=== PATIENT | female | born 1950 | race Caucasian/White ===

== ENCOUNTER 2016-07-19 05:06 | Emergency (ER) | payer MEDICARE, MEDICAID ==
[2011-01-21 08:43] VITALS: BMI 36.6
== END 2016-07-19 08:02 | disposition home or self-care (01) ==
LOC: D.ER 05:06
DX: S16.1XXA Strain of muscle, fascia and tendon at neck level, initial encounter (principal); V43.92XA Unspecified car occupant injured in collision with other type car in traffic accident, initial encounter; Y93.89 Activity, other specified; Y92.410 Unspecified street and highway as the place of occurrence of the external cause; E11.9 Type 2 diabetes mellitus without complications; Z79.4 Long term (current) use of insulin; M79.7 Fibromyalgia; K21.9 Gastro-esophageal reflux disease without esophagitis; I10 Essential (primary) hypertension

== ENCOUNTER 2016-12-31 12:53 | Emergency (ER) | payer MEDICARE, MEDICAID ==
[2011-01-21 08:43] VITALS: BMI 36.6
== END 2016-12-31 18:10 | disposition home or self-care (01) ==
LOC: D.ER 12:53
DX: S92.902A Unspecified fracture of left foot, initial encounter for closed fracture (principal); X58.XXXA Exposure to other specified factors, initial encounter; Y93.89 Activity, other specified; Y92.89 Other specified places as the place of occurrence of the external cause; S99.922A Unspecified injury of left foot, initial encounter; E11.9 Type 2 diabetes mellitus without complications; Z79.4 Long term (current) use of insulin; K21.9 Gastro-esophageal reflux disease without esophagitis; I10 Essential (primary) hypertension

== ENCOUNTER 2017-03-07 09:12 | Emergency (ER) | payer MEDICARE, MEDICAID ==
[2011-01-21 08:43] VITALS: BMI 36.6
[2017-03-07 09:58] LABS: UDS - AMPHET NEGATIVE QUAL (NEGATIVE); UDS - BARB NEGATIVE QUAL (NEGATIVE); UDS - BENZO NEGATIVE QUAL (NEGATIVE); UDS - COCAINE NEGATIVE QUAL (NEGATIVE); UDS - METH NEGATIVE QUAL (NEGATIVE); UDS - OPIATE NEGATIVE QUAL (NEGATIVE); UDS - PCP NEGATIVE QUAL (NEGATIVE); UDS - THC NEGATIVE QUAL (NEGATIVE)
[2017-03-07 10:17] LABS: APPEARANCE CLEAR (CLEAR); BACTERIA MODERATE /hpf (NONE SEEN); BILIRUBIN NEGATIVE (NEGATIVE); COLOR YELLOW (YELLOW); EPITHELIAL CELLS 0-5 /hpf (0-5); GLUCOSE NEGATIVE (NEGATIVE); HYALINE CAST 0-5 /lpf (NONE SEEN); KETONE NEGATIVE (NEGATIVE); LEUKOCYTE ESTERASE TRACE (NEGATIVE); NITRITE NEGATIVE (NEGATIVE); PROTEIN TRACE mg/dL (NEGATIVE); SPECIFIC GRAVITY 1.015 (1.005-1.020); UROBILINOGEN NORMAL (NORMAL); WHITE CELLS - URINE 0-5 /hpf (0-5)
[2017-03-07 10:18] LABS: MUCUS <1+ /lpf (NONE SEEN)
[2017-03-07 10:26] LABS: BASOPHILS 0.2 % (0-2); EOSINOPHILS 1.8 % (0-7); HEMATOCRIT 38.8 % (36.0-48.0); HEMOGLOBIN 13.1 g/dL (12-16); IMMATURE GRANULOCYTES 0.7 % (0-5); LYMPHOCYTES 23.1 % (15-50); MCHC 33.8 g/dL (31.0-37.0); MCV 88.8 fL (80.0-100.0); MEAN PLATELET VOLUME 9.6 fL (7.4-10.4); MONOCYTES 6.7 % (2-11); NEUTROPHILS 67.5 % (40-80); RBC 4.37 10x6/uL (4.00-5.40); WBC 16.9 10x3/uL (4.8-10.8)
[2017-03-07 10:27] LABS: PLATELET COUNT 248 10x3/uL (130-400)
[2017-03-07 10:44] LABS: ALBUMIN 3.7 g/dL (3.4-5.0); BILIRUBIN - TOTAL 0.49 mg/dL (0.2-1.3); CALCIUM 9.2 mg/dL (8.5-10.1); CREATININE - SERUM 1.3 mg/dL (0.6-1.3); POTASSIUM - SERUM 3.4 mmol/L (3.5-5.1); PROTEIN - SERUM 7.8 g/dL (6.4-8.2)
[2017-03-07 10:49] LABS: ANION GAP 15.4 mmol/L (8-16)
== END 2017-03-07 15:02 | disposition short-term general hospital (02) ==
LOC: D.ER 09:12
PROVIDERS: Emergency Medicine
DX: F33.9 Major depressive disorder, recurrent, unspecified (principal); Z86.59 Personal history of other mental and behavioral disorders; F41.9 Anxiety disorder, unspecified; R45.851 Suicidal ideations; K21.9 Gastro-esophageal reflux disease without esophagitis; I10 Essential (primary) hypertension; E11.9 Type 2 diabetes mellitus without complications; Z79.4 Long term (current) use of insulin

== ENCOUNTER 2017-04-06 12:06 | Outpatient (CLI) | payer MEDICARE, MEDICAID ==
--- NOTE | ~2017-04-06 | HEMODYNAMI ---
PATIENT:RABIA MORENO MEDICAL RECORD: [id number] : 54 [id number] ADMISSION DATE: 04/06/17 Generatedon:04/07/201710:42 Patient name: RABIA MORENO Patient #: [id number] SSN: D OB: 1950 Date of study: 04/07/2017 Page: Of Hemodynamic Procedure Report Patient Data Patient Demographics Procedure consent was obtained First Name: RABIA Gender: Female Last Name: JOSH : 1950 Middle Initial: A Age: 66 year(s) Patient #: [id number] Race: Unknown Additional ID: [id number] Contact details Address: [address] [place] [address] [address] State: [place] City: [facility] Zip code: [address] Admission Admission Data Admission Date: 04/06/2017 Admission Time: 14:17 Room #: D.2124 Height (in.): 61.81 Height (cm.): 157 Lab Results Lab Result Date: 04/07/2017 Lab Result Time: 0:00 Biochemistry Name Units Result Min Max BUN mg/dl 28 --(----)-* 7 18 Creatinine mg/dl 1.3 --(---*)-- 0.6 1.3 CBC Name Units Result Min Max Hemoglobin g/dl 12.9 -*(----)-- 13.5 17.5 Procedure Procedure Types Cath Procedure Diagnostic Procedure LHC LHC w/Coronaries FFR/IVUS Intra-Coronary IVUS Initial PCI Procedure Coronary Stent Initial Miscellaneous Procedures Moderate Sedation up to 15 minutes Procedure Description Procedure Date Procedure Date: 04/07/2017 Procedure Start Time: 10:20 Procedure End Time: 10:41 Procedure Staff Name Function Aditya Saucedo MD Performing Physician Starr Anna RT Scrub Froilan Brown RN Nurse Leif Antonio RN General Contractor Kaylin Morillo RT Monitor Procedure Data Cath Procedure Fluoroscopy Diagnostic fluoroscopy Total fluoroscopy Time: 5.5 time: 5.5 min min Diagnostic fluoroscopy Total fluoroscopy dose: 683 dose: 683 mGy mGy Contrast Material Contrast Material Type Amount (ml) Isovue 300 112 Entry Location Entry Primary Successful Side Size Upsize Upsize Entry Closure Rojo ccessful Closure Location (Fr) 1 (Fr) 2 (Fr) Remarks Device Remarks Radial Right 6 Fr Mechanical TR band artery Short Compression Estimated blood loss: 10 ml Diagnostic catheters Device Type Used For End Catheter Placement Terumo 5Fr Tang 110cm catheter Procedure Complications No complications Procedure Medications Medication Administration Route Dosage 0.9% NaCl I.V. 100 ml/hr Oxygen NC 2 l/min Heparin Flush Bag added to field 2 bags (1000units/500ml NS) Lidocaine 2% added to field 20 Radial Cocktail added to field (Verapomil 2mg/Nitro 400mcg/Heparin 1500units) Versed I.V. 1 mg Fentanyl I.V. 50 mcg Fentanyl I.V. 50 mcg Versed I.V. 1 mg Radial Cocktail I.A. 1 syringe (Verapomil 2mg/Nitro 400mcg/Heparin 1500units) Versed I.V. 1 mg Versed I.V. 1 mg Fentanyl I.V. 50 mcg Fentanyl I.V. 50 mcg Hemodynamics Rest HGB: 12.9 (g/dl) Heart Rate: 82 (bpm) Pressure Samples Time Site Value (mmHg) Purpose Heart Use Rate(bpm) 10:25 AO 134/44(77) Snapshot 81 Snapshots Pre Cath Intra NCS Post Cath Vital Signs Time Heart Resp SPO2 etCO2 NIBP (mmHg) Rhythm Pain Sedation Rate (ipm) (%) (mmHg) Status Level (bpm) 10:10:57 73 17 98 46.4 185/84(118) NSR 0 (11) 10(A) , No pain 10:15:59 74 25 99 43.4 155/76(109) NSR 0 (11) 10(A) , No pain 10:21:00 78 17 96 39.6 169/68(125) NSR 0 (11) 10(A) , No pain 10:25:53 82 19 94 14.9 130/59(97) NSR 0 (11) 10(A) , No pain 10:30:45 82 18 94 43.4 127/63(93) NSR 0 (11) 10(A) , No pain 10:35:36 84 16 94 42.7 115/57(101) NSR 0 (11) 10(A) , No pain 10:40:35 82 15 97 46.4 Measuring NSR 0 (11) 10(A) , No pain 10:41:12 82 8 95 47.2 137/66(103) NSR 0 (11) 10(A) , No pain Medications Time Medication Route Dose Verified Delivered Reason Notes Effectiveness by by 10:10:03 0.9% NaCl I.V. 100 Froilan Froilan Per ml/hr Kevin Brown physician RN RN 10:10:15 Oxygen NC 2 l/min Froilan Froilan Per Kevin Brown physician RN RN 10:10:33 Heparin Flush added 2 bags Froilan Froilan used for Bag to Kevin Brown procedure (1000units/500ml RN RN NS) 10:10:49 Lidocaine 2% added 20ml Froilan Froilan for local to vial Lorigan Lorgerald anesthetic RN RN 10:15:41 Radial Cocktail added Froilan Froilan for (Verapomil to Lorigan Lorigan vasodilation 2mg/Nitro RN RN 400mcg/Heparin 1500units) 10:15:55 Versed I.V. 1 mg Froilan Froilan for sedation Kevin Brown RN RN 10:16:05 Fentanyl I.V. 50 mcg Froilan Froilan for sedation Kevin Brown RN RN 10:22:47 Fentanyl I.V. 50 mcg Froilan Froilan for sedation Kevin Brown RN RN 10:22:56 Versed I.V. 1 mg Froilan Froilan for sedation Kevin Brown RN RN 10:23:12 Radial Cocktail I.A. 1 Froilan Aditya for (Verapomil syringe Kevin Saucedo MD vasodilation 2mg/Nitro RN 400mcg/Heparin 1500units) 10:23:49 Versed I.V. 1 mg Froilan Froilan for sedation Kevin Brown RN RN 10:29:23 Versed I.V. 1 mg Froilan Froilan for sedation Kevin Brown RN RN 10:33:52 Fentanyl I.V. 50 mcg Froilan Froilan for sedation Kevin Brown RN RN 10:36:56 Fentanyl I.V. 50 mcg Froilan Froilan for sedation Kevin Brown RN griddle attendant Log Time Note 9:53:24 Leif Antonio RN sent for patient. Start room use. 9:53:29 Diagnostic Cath status Elective 9:53:32 Time tracking: Regular hours 9:53:42 Plan of Care:Hemodynamics will remain stable., Cardiac rhythm will remain stable., Comfort level will be maintained., Respiratory function will remain adequate., Patient/ family verbilizes understanding of procedure., Procedure tolerated without complication., Recovers from procedure without complications.. 9:54:15 Patient Height : 61.81 inches 9:55:17 Lab Result : Hemoglobin 12.9 g/dl 9:55:17 Lab Result : Creatinine 1.3 mg/dl 9:55:17 Lab Result : BUN 28 mg/dl 9:56:49 Patient received from Med II to CCL 1 Alert and oriented. Tansferred to table in Supine position. 10:03:45 Warm blankets applied, and nguyen hugger turned on for patient comfort. 10:03:45 Correct patient and procedure confirmed by team. 10:03:47 Signed procedure consent form obtained from patient. 10:03:49 ECG and BP/O2 sat monitors applied to patient. 10:04:13 Vital chart was started 10:04:15 Baseline sample Acquired. 10:04:21 Rhythm: sinus rhythm 10:04:24 Full Disclosure recording started 10:04:34 H&P Date Dictated: 04/07/2017 New H&P dictated by physician.. 10:04:36 Pre-procedure instructions explained to patient. 10:04:36 Pre-op teaching completed and patient verbalized understanding. 10:04:37 Family in waiting room. 10:04:39 Patient NPO since Midnight. 10:04:44 Is the patient allergic to Iodine/contrast media? No. 10:04:46 Was the patient premedicated? No 10:05:06 Patient diabetic? No. 10:05:09 If diabetic: On Metformin? No 10:05:17 Previous problem with sedation/anesthesia? No ? 10:05:20 Snore? Yes 10:05:25 Sleep apnea? Yes 10:05:26 Deviated septum? No 10:05:27 Opens mouth fully? Yes 10:05:28 Sticks out tongue? Yes 10:05:30 Airway obstruction? No ? 10:05:44 Is patient on blood thinner?Yes 10:05:51 ACC The patient was administered the following blood thiners within the last 24 hours: ACCPlavix 10:05:59 Dentures? No ? 10:10:03 0.9% NaCl 100 ml/hr I.V. was administered by Froilan Brown RN; Per physician; 10:10:15 Oxygen 2 l/min NC was administered by Froilan Brown RN; Per physician; 10:10:33 Heparin Flush Bag (1000units/500ml NS) 2 bags added to field was administered by Froilan Brown RN; used for procedure; 10:10:49 Lidocaine 2% 20ml vial added to field was administered by Froilan Brown RN; for local anesthetic; 10:13:25 IV patent on arrival in left forearm with 0.9% NaCl at [facility]. 10:13:32 Lab results completed and on chart. 10:13:38 Right Radial & Right Groin area was prepped with chlora-prep and draped in sterile fashion 10:13:39 Alarms reviewed by R. N. 10:13:40 Sharps counted by scrub and verified by R.N. 10:13:41 Physician paged 10:13:42 Physician arrived 10:13:42 --------ALL STOP TIME OUT------ 10:13:43 Final Timeout: patient, procedure, and site verified with staff and physician. All members of the team are in agreement. 10:13:45 Right Radial & Right Groin site verified by team. 10:13:49 Sedation plan: IV Moderate Sedation Versed, Fentanyl 10:14:07 Use device set Radial Dx 10:15:41 Radial Cocktail (Verapomil 2mg/Nitro 400mcg/Heparin 1500units) added to field was administered by Froilan Brown RN; for vasodilation; 10:15:55 Versed 1 mg I.V. was administered by Froilan Brown RN; for sedation; 10:16:05 Fentanyl 50 mcg I.V. was administered by Froilan Brown RN; for sedation; 10:20:51 Procedure started. 10:20:57 Local anesthetic to right radial artery with Lidocaine 2% by Aditya Saucedo MD.INITIAL ACCESS ONLY 10:21:08 A 6 Fr Short sheath was inserted into the Right Radial artery 10:21:37 Acist Syringe opened to sterile field. 10:21:37 Medline Cath Pack opened to sterile field. 10:21:37 Bag Decanter opened to sterile field. 10:21:38 Terumo 6Fr Slender Glidesheath opened to sterile field. 10:21:38 St Pierce 260cm J .035 wire opened to sterile field. 10:21:38 Acist Hand Control opened to sterile field. 10:21:39 Acist Manifold opened to sterile field. 10:21:39 Tegaderm 4 x 4 opened to sterile field. 10:21:40 MBrace Wrist Support opened to sterile field. 10:21:55 A Terumo 5Fr Tang 110cm catheter was advanced over the wire and used for . 10:22:47 Fentanyl 50 mcg I.V. was administered by Froilan Brown RN; for sedation; 10::56 Versed 1 mg I.V. was administered by Froilan Brown RN; for sedation; 10:23:12 Radial Cocktail (Verapomil 2mg/Nitro 400mcg/Heparin 1500units) 1 syringe I.A. was administered by Aditya Saucedo MD; for vasodilation; 10:23:23 Terumo ADVANTAGE 260CM glide wire opened to sterile field. 10:23:28 LV angiography performed. 10:23:49 Versed 1 mg I.V. was administered by Froilan Brown RN; for sedation; 10:25:04 EF : 50 % 10:25:07 Zero performed for pressure channel P1 10:27:26 RCA angiography performed. 10:28:04 Catheter removed. 10:28:09 Cordis 6FR XB 3.5 guide catheter opened to sterile field. 10:28:16 LCA angiography performed. 10:29:23 Versed 1 mg I.V. was administered by Froilan Brown RN; for sedation; 10:29:51 Proceeding to intervention. 10:31:40 Merit BasixCompak Inflation Kit opened to sterile field. 10:31:40 [place] Sci PT Graphix J 300cm 0.014 guide wire opened to sterile field. 10:31:41 [place]ag[place] IVUS Catheter opened to sterile field. 10:31:59 6 Fr XB 3.5 guide catheter was inserted over the wire 10:32:05 pt graphix wire advanced. 10:32:07 Wire advanced across lesion. 10:32:10 IVUS catheter advanced over wire. 10:33:12 IVUS catheter removed over wire. 10:33:52 Fentanyl 50 mcg I.V. was administered by Froilan Brown RN; for sedation; 10:35:40 Inflation Number: 1 A Moe RX 3.0 x 22 stent was prepped and advanced across the Prox LAD. The stent was deployed at 17 MORIS for 0:10 (min:sec). 10:35:55 Stent catheter was removed intact over wire. 10:36:56 Fentanyl 50 mcg I.V. was administered by Froilan Brown RN; for sedation; 10:37:48 Inflation Number: 2 A [place] OTW 3.5 x 12 stent was prepped and advanced across the Prox LAD. The stent was deployed at 13 MORIS for 0:10 (min:sec). 10:38:44 Stent catheter was removed intact over wire. 10:38:44 Wire removed. 10:38:45 Guide catheter removed. 10:39:06 Sheath removed intact; hemostasis achieved with Mechanical Compression to the Right Radial artery. 10:39:09 Procedure ended.(Physican Out) 10:39:22 Fluoroscopy time 05.50 minutes. 10:39:31 Fluoroscopy dose: 683 mGy 10:39:31 Flurop Dose total: 683 10:39:36 Contrast amount:Isovue 300 112ml. 10:39:40 Sharps counted by scrub and verified by R.N. 10:39:59 TR band inflated with 10cc of air. 10:40:00 Insertion/operative site no bleeding no hematoma. 10:40:02 Post Procedure Pulses reassessed and unchanged 10:40:05 Post procedure rhythm: unchanged. 10:40:08 Estimated blood loss: 10 ml 10:40:11 Post procedure instruction explained to patient.Patient verbalizes understanding. 10:40:28 Procedure type changed to Cath procedure, Diagnostic procedure, LHC, LHC w/Coronaries, FFR/IVUS, Intra-Coronary IVUS Initial, PCI procedure, Coronary Stent Initial, Miscellaneous Procedures, Moderate Sedation up to 15 minutes 10:40:29 Procedure and supply charges have been captured, reviewed, submitted and are correct. 10:41:02 Procedure Complication : No complications 10:41:07 Vital chart was stopped 10:41:08 See physician's report for complete and final results. 10:41:11 Report given to [facility]. 10:41:16 Patient transfered to [facility] with Stretcher. 10:41:20 Procedure ended. 10:41:20 Full Disclosure recording stopped 10:41:26 End room use (Document Last) 10:41:30 ACC-PCI Only Patient was given prescriptions, or instructed by Aditya Saucedo MD to start/continue the following medications upon discharge: Plavix Intervention Summary Intervention Notes Time ActionType Lesion and Equipment Action# Pressure Duration Attributes Used 10:35:40 Place stent Prox LAD [place] RX 1 17 00:10 3.0 x 22 stent 10:37:48 [address] stent Prox LAD [place] OTW 2 13 00:10 3.5 x 12 stent Device Usage Item Name Manufacture Quantity Catalog Number Hospital Part Current Mini mal Lot# / Charge Number Stock Stock Serial# Code Acist Acist 1 20293 852280 573459 911177 20 Syringe Medical Systems Inc Medline Cardinal 1 [id number] 629451 24962 813641 5 Cath Pack Health Bag Microtek 1 2002S 717607 74070 367558 5 [employer] Inc[employer] Terumo 6Fr Terumo 1 [id number] 074319 041509 884874 [address] St Pierce 1 235373 705925 847437 060872 30 260cm J .035 wire Acist Hand Acist 1 61093 966946 491775 155418 5 Control Medical Systems Inc Acist Acist 1 24955 994183 209739 785805 5 Manifold Medical Systems Inc Tegaderm 4 3M 1 1626W 877948 824660 296055 5 x 4 MBrace Advanced 1 140-0250-00 237713 58366 309712 5 Wrist Vascular Support Dynamics Terumo 5Fr Terumo 1 46-3687 191366 985698 017522 5 Tang 110cm catheter Terumo Terumo 1 [id number] 356143 794907 5 ADVANTAGE 260CM glide wire Cordis 6FR Cardinal 1 [id number] 656319 623398 330867 2 XB 3.5 Health guide catheter Merit Merit 1 [id number] 797586 870162 757254 15 BasixCompaBebitos Medical Inflation Kit [place] Sci [place] 1 [id number] 922814 100836 918168 5 PT Stypi J 300cm 0.014 guide wire [place] 1 [id number] 106640 423126 843310 8 [place] Eagleye IVUS Catheter Moe RX 3.0 Medtronic 1 [id number] 097108 3776603 374716 5 [id number] x 22 stent Moe OTW Medtronic 1 [id number] 411561 1066360 891405 5 [id number] 3.5 x 12 stent Signature Audit [place] Stage Time Signature Unsigned Intra-Procedure 04/07/2017 Kaylin Morillo 10:42:39 AM RT(R) Signatures Monitor : Kaylin Morillo Signature : RT Date : Time : [address] [id number]
[2017-04-06 13:02] LABS: BASOPHILS 0.2 % (0-2); EOSINOPHILS 0.8 % (0-7); HEMATOCRIT 42.6 % (36.0-48.0); HEMOGLOBIN 14.2 g/dL (12-16); IMMATURE GRANULOCYTES 0.7 % (0-5); LYMPHOCYTES 22.2 % (15-50); MCH 29.6 pg (26.0-34.0); MCHC 33.3 g/dL (31.0-37.0); MCV 88.8 fL (80.0-100.0); MEAN PLATELET VOLUME 9.7 fL (7.4-10.4); MONOCYTES 5.3 % (2-11); NEUTROPHILS 70.8 % (40-80); PLATELET COUNT 246 10x3/uL (130-400); RDW 12.7 % (11.5-14.5); WBC 14.7 10x3/uL (4.8-10.8)
[2017-04-06 13:22] LABS: ALBUMIN 3.9 g/dL (3.4-5.0); ALKALINE PHOSPHATASE 120 U/L (46-116); ALT (SGPT) 22 U/L (10-68); BILIRUBIN - TOTAL 0.25 mg/dL (0.2-1.3); CALC OSMOLALITY 282 mosm/kg (275-300); CALCIUM 10.5 mg/dL (8.5-10.1); CARBON DIOXIDE 28.1 mmol/L (21.0-32.0); CHLORIDE - SERUM 99 mmol/L (98-107); CREATININE - SERUM 1.4 mg/dL (0.6-1.3); POTASSIUM - SERUM 3.9 mmol/L (3.5-5.1); PROTEIN - SERUM 8.6 g/dL (6.4-8.2); SODIUM 135 mmol/L (136-145); UREA NITROGEN 25 mg/dL (7-18); eGFR NON AFRICAN AMERICAN 40 mL/min (90-120)
[2017-04-06 13:25] LABS: GLUCOSE 266 mg/dL (74-106)
[2017-04-06 13:26] LABS: CKMB 0.9 U/L (0.0-3.6); CREATINE KINASE 67 UL (21-215); PRO BNP 232 pg/mL (0-125)
[2017-04-06 13:50] LABS: TROPONIN-I < 0.017 ng/mL (0.000-0.060)
[2017-04-06] MEDS ORDERED: CATAPRES0.1 MG PO (16:34)
[2017-04-06] MEDS ORDERED: NORCO 7.5/325 T1 TA1 PO (16:36)
[2017-04-06] MEDS ORDERED: AMBIEN10 MG PO (16:37)
--- NOTE | 2017-04-06 17:08 | NUR ---
RECIEVED FROM ER. ALERT AND ORIENTED. IV TO LEFT ARM.DENIES PAIN AT PRESENT TIME, TELEMERTY SHOWS SR. SR UP WITH CALL LIGHT IN REACH
[2017-04-06] MEDS ORDERED: TENORMIN50 MG PO (17:18)
[2017-04-06] MEDS ORDERED: NEURONTIN 300300 MG PO (17:19)
[2017-04-06] MEDS ORDERED: KLONOPIN1 MG PO (17:19)
--- NOTE | 2017-04-06 18:20 | NUR ---
LYING QUIETLY. NO NEEDS VOICED. TELEMERTY SHOWS SR. NPO AFTER MIDNIGHT
[2017-04-06 20:00] VITALS: BP 144/63
--- NOTE | 2017-04-06 20:10 | NUR ---
RESUMED CARE OF PT, LYING IN BED RESPIRATIONS EVEN AND UNLABORED ON ROOM AIR. LEFT FOREARM INFUSING NS @ 50. 65 SR ON TELEMETRY. LAB AT BEDSIDE. REQUESTS TORADOL FOR BACK AND CHEST PAIN. GIVEN FOR PAIN 5:10. PLAN OF CARE DISCUSSED, CALL LIGHT IN REACH. WILL CONTINUE TO MONITOR. SEE NURSE ASSESSMENT.
[2017-04-07] VITALS: BP 156/61
--- NOTE | 2017-04-07 02:29 | NUR ---
TORADOL 30MG IVP FOR PAIN, PLAN OF CARE DISCUSSED. CALL LIGHT IN REACH. WILL CONTINUE TO MONITOR.
[2017-04-07 04:00] VITALS: BP 152/62
--- NOTE | 2017-04-07 06:42 | NUR ---
NO CHANGES FROM PREVIOUS ASSESSMENT, CALL LIGHT IN REACH. WILL CONTINUE TO MONITOR.
[2017-04-07 07:47] LABS: BASOPHILS 0.3 % (0-2); HEMATOCRIT 39.2 % (36.0-48.0); HEMOGLOBIN 12.9 g/dL (12-16); IMMATURE GRANULOCYTES 0.6 % (0-5); LYMPHOCYTES 33.1 % (15-50); MCH 29.2 pg (26.0-34.0); MCHC 32.9 g/dL (31.0-37.0); MCV 88.7 fL (80.0-100.0); MEAN PLATELET VOLUME 9.8 fL (7.4-10.4); MONOCYTES 5.3 % (2-11); NEUTROPHILS 58.7 % (40-80); PLATELET COUNT 239 10x3/uL (130-400); RBC 4.42 10x6/uL (4.00-5.40); RDW 12.8 % (11.5-14.5); WBC 14.3 10x3/uL (4.8-10.8)
[2017-04-07 08:05] LABS: ALBUMIN 3.5 g/dL (3.4-5.0); ANION GAP 15.9 mmol/L (8-16); BILIRUBIN - TOTAL 0.29 mg/dL (0.2-1.3); CALCIUM 9.2 mg/dL (8.5-10.1); CARBON DIOXIDE 21.8 mmol/L (21.0-32.0); CREATININE - SERUM 1.3 mg/dL (0.6-1.3); POTASSIUM - SERUM 3.7 mmol/L (3.5-5.1); PROTEIN - SERUM 7.6 g/dL (6.4-8.2)
[2017-04-07 08:22] VITALS: BP 167/89
--- NOTE | 2017-04-07 09:58 | NUR ---
PATIENT HAS BEEN GIVEN ALL PREOP MEDICATIONS AND IS HEADING TO THE SCREEN DOOR MAKER NOW. REPORTS SOME ANXIETY ABOUT PROCEDURE. AWAKE AND ALERT, TELEMETRY SHOWS SR 79. PATIENT RESTING QUIETLY.
--- NOTE | 2017-04-07 11:43 | NUR ---
PATIENT RETURNS FROM ELECTRIC CONTAINER TESTER. PATIENT RECIEVED 2 STINTS IN THE LEFT ANTERIOR DECENDING ARTERY. NS AT 100ML/HR IV IN LEFT WRIST. BLOOD PRESSURE MONITORED Q 15 MINUTES. PATIENT RESTING COMFORTABLY.
[2017-04-07] MEDS ORDERED: PLAVIX75 MG PO (11:47)
[2017-04-07] MEDS ORDERED: BAYER CHEWABLE81 MG PO (11:48)
--- NOTE | 2017-04-07 12:17 | NUR ---
RESTS IN BED WITH CALL LIGHT IN REACH. IV PATENT. NURSE AT ASSISTING WITH NEEDS. WILL CONT. PLAN OF CARE.
--- NOTE | 2017-04-07 12:24 | NUR ---
PT SITTING UP EATING LUNCH. ADMINISTERD 2 UNITS HUMALOG FOR FSBS 199. PT REPORTS DISCOMFORT IN R WRIST WHERE INSICION WAS MADE, BUT UNABLE TO RELEASE PRESSURE DUE TO BLEEDING. PRESSURE REMAINS IN IT BAND ORDERED. NO BLEEDING AT THIS TIME.
[2017-04-07 12:39] VITALS: BP 139/79
--- NOTE | 2017-04-07 12:39 | NUR ---
PT SITTING UP IN BED EATING. CHECKED ON HER TR BAND . NO BLEEDING AT THIS TIME. PT REPORTS THAT THE BAND IS TIGHT. INFORMED THAT PRESSURE IS NEEDED TO KEEP IT FROM BLEEDING AND WILL RECHECK IN 30 MIN.
--- NOTE | 2017-04-07 14:05 | NUR ---
Nutrition Consult: Consult received for DM education. Pt stated that she needed help with the diabetic diet. She said that she desired to be compliant. RD reviewed DM edu material and suggested an outpatient edu appt. Pt stated that she would like that so she "could pay attention." (Pt is s/p cath). Rec outpatient diet edu. Thank you for the consult.
--- NOTE | 2017-04-07 14:52 | NUR ---
PATIENT RESTING QUIETLY. REPORTS THAT ATIVAN HELPED. REMOVED 3ML AIR FROM TR BAND.
--- NOTE | 2017-04-07 16:17 | NUR ---
REMOVED TR BAND. NO BLEEDING AT THIS TIME.
--- NOTE | 2017-04-07 16:56 | DS ---
PATIENT:RABIA WILSON :54 MEDICAL RECORD: [id number] DISCHARGE SUMMARY ADMISSION DATE: 04/06/17 DISCHARGE DATE: DATE OF DISCHARGE: 04/07/2017. DIAGNOSES: 1. Angina. 2. Coronary artery disease. 3. Percutaneous transluminal coronary angioplasty stent to left anterior descending this admission. HOSPITAL COURSE: Ms. Wilson presents with anginal symptomatology, found to have significant disease of the LAD, underwent successful PTCA stent of the LAD, had an uneventful postop course. She was discharged home with the addition of aspirin and Plavix to her medical regimen. Will follow up with [facility] in 1 month. TRANSINT:[id number] Voice Confirmation ID: [id number] DOCUMENT ID: [id number] RAMON ESCOBEDO MD at 1656 CC: [id number] DICTATION DATE: 04/07/17 1040 DIAL MARKER: 04/07/17 1112 ADM IN [place] [id number] [place] [id number]
--- NOTE | 2017-04-07 16:56 | OP ---
PATIENT NAME: RABIA MORENO MEDICAL RECORD: [id number] :54 LOCATION:D.M2 D.2124 ADMISSION DATE:04/06/17 SURGEON: RAMON ESCOBEDO MD DATE OF OPERATION: 04/07/2017 PROCEDURES: 1. PTCA stent to LAD. 2. Intravascular ultrasound. 3. Left heart catheterization. 4. Selective coronary angiography. 5. Left ventriculogram. INDICATION: Angina and coronary artery disease. PROCEDURE IN DETAIL: After informed consent was obtained and after a detailed explanation of the risks, benefits as well as alternative therapies, the patient elected to proceed with angiogram and angioplasty. The right radial area was prepped and draped in normal sterile fashion. The right radial artery was cannulated via modified Seldinger technique with placement of 6-Latvian sheath. All catheters exchanged through this sheath. FINDINGS: The left ventriculogram was performed in standard 30-degree NORRIS view, reveals good cardiac wall motion throughout all segments. Overall ejection fraction estimated at 60%. SELECTIVE CORONARY ANGIOGRAPHY: 1. Left main showed no significant angiographic disease. 2. Left anterior descending has 75% stenosis throughout the proximal vessel confirmed by intravascular ultrasound. 3. Left circumflex shows moderate irregularities, but no flow-limiting stenosis. 4. Right coronary has moderate irregularities, but no flow-limiting stenosis. PTCA STENT OF THE LAD: The stents used were 3.0 x 22 and 3.5 x 12, both Agness stents. Result was 0% residual stenosis. OVERALL IMPRESSION: Successful percutaneous transluminal coronary angioplasty stent of the left anterior descending going from 75% initial stenosis to 0% residual stenosis. TRANSINT:[id number] Voice Confirmation ID: [id number] DOCUMENT ID: [id number] RAMON ESCOBEDO MD at 1656 CC: [id number] DICTATION DATE: 04/07/17 1042 SHAREPOINT ADMIN: 04/07/17 1050 [place] [address]
--- NOTE | 2017-04-07 19:47 | NUR ---
PT IS AWAKE, ALERT, ORIENTED, C/O SHARP SHOOTING PAIN INTO HER BACK AND INCREASED SOB IMMEDIATELY FOLLOWING PUTTING HER BRA ON, SHE IS TO BE D/C TODAY. PT IS NOW CONCERNED THAT SHE MAY NEED FURTHER ASSESSMENTS, SHE STATES SHE IS NOT COMFORTABLE LEAVING AT THIS TIME. PT STATES SHE DOES HAVE CHRONIC ANXIETY, HOWEVER SHE STATES THESE S/S ARE NOT R/T ANXIETY. I EXPLAINED TO PT THAT I COULD CALL DR. ESCOBEDO OR CARDIO CLINICAL SCIENCES PROFESSOR FOR FURTHER ORDERS, BUT IF SHE DECIDES TO STAY, MORE WORK UP WOULD BE NEEDED. PT HAS AMBULATED OUT TO THE NURSES DESK TWICE, STATING SHE IS NOT COMFORTABLE WITH THIS FEELING. I HAVE EXPLAINED TO PT SEVERAL TIMES THAT AFTER WE GET HER V/S AND FURTHER ASSESS, THAT I WILL CALL FOR MORE ORDERS. PT IS BECOMING INCREASINGLY AND RAPIDLY ANXIOUS. PT IS NOT IN ANY DISTRESS, RESPIRATIONS ARE EVEN AND REGULAR, B/P IS ELEVATED AT THIS TIME, O2 SAT IS 98% ON ROOM AIR, PTS COLOR IS WNL, AND PT STATES OTHER THAN HER BREATHING THE PAIN IS NO LONGER PRESENT. WILL CONTINUE TO MONITOR PT AND CALL FOR FURTHER ORDERS.
--- NOTE | 2017-04-07 21:05 | NUR ---
I SPOKE WITH DR. ESCOBEDO, ALONG WITH KEN OUR SUPERVISORY INVESTIGATIVE SPECIALIST AND ASKED KEN TO ALSO SPEAK WITH PATIENT. DR. ESCOBEDO STATED PT COULD STAY TONIGHT IF SHE FELT SHE NEEDED TO SO THAT WE COULD MONITOR HER. AFTER KEN SPOKE WITH PT, PT DECIDED SHE WAS STABLE ENOUGH TO GO HOME. PT DENIES ANY ACTIVE CHEST PAIN, STATED THE SHARP, STABBING PAIN TO HER BACK LASTED ONLY SECONDS, BUT THAT HER BREATHING WAS UNCHANGED. PT DID NOT DEMONSTRATE ANY TACHYPNEA AND REMAINED 98% ON ROOM AIR. PTS COLOR REMAINS WNL, PT HAS BEEN UP AMBULATING WITHOUT ANY EXERTIONAL DYSPNEA, OR ANY DIFFICULTY AT ALL, AGAIN DENIED CHEST PAIN. I DID GIVE PT HER TENORMIN 50MG FOR ELEVATED B/P PRIOR TO PT LEAVING. PT WAS TAKEN IN STABLE CONDITION VIA WHEELCHAIR BY YANI GRANADOS DOWN TO THE MAIN DOORS WHERE HER RIDE WAS WAITING TO RETRIEVE HER.
--- NOTE | 2017-04-17 13:13 | CN ---
PATIENT NAME:RABIA MORENO MEDICAL RECORD: [id number] : 54 LOCATION:D.OPS ADMIT DATE: ACCOUNT: [id number] CONSULTING PHYSICIAN: ODALYS VÁSQUEZ MD REFERRING PHYSICIAN: ODALYS VÁSQUEZ MD DATE OF CONSULTATION: 04/06/2017 HISTORY OF PRESENT ILLNESS: A 66-year-old female with no known history of coronary artery disease. She has a history of hypertension, hyperlipidemia, diabetes mellitus, been noticing over the past 2 days progressive dyspnea on exertion, chest tightness, pressure, had one episode of rest pain this morning, presented to the ER, did radiate to the left arm and jaw. Family history of coronary artery disease. She is a nonsmoker. We were asked to see her concerning her cardiovascular status. PAST MEDICAL HISTORY: Includes history of: 1. Hypertension. 2. Diabetes mellitus. 3. Dyslipidemia. 4. Osteoarthritis. SOCIAL HISTORY: Lives here in [place]. Nonsmoker and nondrinker. She takes care of her ADLs. No set exercise program. REVIEW OF SYSTEMS: The patient reports easy bruising but reports no swollen glands. The patient reports no fever, no night sweats, no significant weight gain, no significant weight loss. No significant exercise tolerance. The patient reports no dry eyes, no irritation, no vision change. Patient reports no difficulty hearing and no ear pain. Patient reports no frequent nose bleeds or nose and sinus problems. Patient reports on arm pain on exertion. No shortness of breath while lying down. No history of heart murmur. Patient reports no cough, no wheezing or coughing up blood. Patient reports no abdominal pain, no vomiting. Normal appetite. No diarrhea and not vomiting blood. No nausea and no constipation. Patient reports no incontinence. No difficulty urinating. No hematuria. No increased frequency. Patient reports no muscle aches. No weakness, no arthralgias, no back pain. No swelling of the extremities. Patient reports no abnormal mole, no jaundice, no rashes. Reports no loss of consciousness. No weakness and no numbness. No seizures, dizziness, or headaches. The patient reports no depression, no sleep disturbance, feeling safe in a relationship and no alcohol abuse. Patient reports on fatigue. Reports no runny nose or sinus pressure. No itching, no hives, and no frequent sneezing. PHYSICAL EXAMINATION: GENERAL: Pleasant middle-aged female, in no acute distress. VITAL SIGNS: Blood pressure 164/64, pulse 72 and regular. HEENT: Normocephalic, atraumatic. NECK: No bruits noted. HEART: Regular, II/ systolic ejection murmur. LUNGS: Good air excursion. ABDOMEN: Soft, nontender. EXTREMITIES: Pulse well preserved. There is no edema. DIAGNOSTIC DATA: ECG without acute changes. Enzymes are negative at this point. CONSULT REPORT [id number] RABIA MORENO LABORATORY DATA: Labs were significant for probably a little bit intravascular volume depleted with BUN 25, creatinine 1.4. IMPRESSION: Progressive angina-type symptomatology with the rest symptomatology this afternoon. PLAN: For diagnostic angiography and intervention based on the above. TRANSINT:[id number] Voice Confirmation ID: [id number] DOCUMENT ID: [id number] ODALYS VÁSQUEZ MD at 1313 CC: [id number] DICTATION DATE: 04/06/171648 ACCOUNT CLASSIFICATION CLERK: 04/06/172022 DEP CLI 04/07/17 [id number] [place] [address]
== END 2017-04-07 21:15 | disposition home or self-care (01) ==
LOC: OBSVTIME → D.OPS 12:06 → D.ER 12:06 → D.M2 14:17 → OBSVTIME 14:17 → D.M2 14:17 → D.ER 14:17 → EDSTATUS 04-07 11:00 → D.OPS 04-07 21:15 → D.M2 04-07 21:15
PROVIDERS: Emergency Medicine; Family Medicine
DX: I25.119 Atherosclerotic heart disease of native coronary artery with unspecified angina pectoris (principal); I10 Essential (primary) hypertension; E11.65 Type 2 diabetes mellitus with hyperglycemia; E11.40 Type 2 diabetes mellitus with diabetic neuropathy, unspecified; E03.9 Hypothyroidism, unspecified
CPT/HCPCS: 93458; C9600; 92978

== ENCOUNTER 2017-08-25 11:37 | Emergency (ER) | payer MEDICARE, MEDICAID ==
[~2017-08-25 11:37] MED LIST: AMBIEN10 MG PO; BAYER CHEWABLE81 MG PO; CATAPRES0.1 MG PO; KLONOPIN1 MG PO; NEURONTIN 300300 MG PO; NORCO 7.5/325 T1 TA1 PO; PLAVIX75 MG PO; TENORMIN50 MG PO
[2017-08-25 15:28] LABS: APPEARANCE CLEAR (CLEAR); COLOR YELLOW (YELLOW)
[2017-08-25 15:29] LABS: BILIRUBIN NEGATIVE (NEGATIVE); GLUCOSE NEGATIVE (NEGATIVE); KETONE NEGATIVE (NEGATIVE); NITRITE NEGATIVE (NEGATIVE); PROTEIN NEGATIVE (NEGATIVE); UROBILINOGEN NORMAL (NORMAL)
[2017-08-25 15:37] LABS: BASOPHILS 0.4 % (0-2); EOSINOPHILS 9.3 % (0-7); HEMATOCRIT 38.3 % (36.0-48.0); HEMOGLOBIN 12.9 g/dL (12-16); IMMATURE GRANULOCYTES 0.3 % (0-5); MCH 29.3 pg (26.0-34.0); MCHC 33.7 g/dL (31.0-37.0); MCV 86.8 fL (80.0-100.0); MEAN PLATELET VOLUME 9.6 fL (7.4-10.4); MONOCYTES 6.2 % (2-11); NEUTROPHILS 45.8 % (40-80); RBC 4.41 10x6/uL (4.00-5.40); RDW 12.7 % (11.5-14.5); WBC 11.1 10x3/uL (4.8-10.8)
[2017-08-25 15:42] LABS: PLATELET COUNT 171 10x3/uL (130-400)
[2017-08-25 15:48] LABS: ALBUMIN 3.6 g/dL (3.4-5.0); ALKALINE PHOSPHATASE 93 U/L (46-116); ALT (SGPT) 27 U/L (10-68); CALC OSMOLALITY 281 mosm/kg (275-300); CALCIUM 9.3 mg/dL (8.5-10.1); CARBON DIOXIDE 20.6 mmol/L (21.0-32.0); CHLORIDE - SERUM 99 mmol/L (98-107); GLUCOSE 280 mg/dL (74-106); POTASSIUM - SERUM 4.5 mmol/L (3.5-5.1); PROTEIN - SERUM 8.1 g/dL (6.4-8.2); SODIUM 135 mmol/L (136-145); UREA NITROGEN 19 mg/dL (7-18); eGFR NON AFRICAN AMERICAN 59 mL/min (90-120)
[2017-08-25 15:58] LABS: CREATINE KINASE 54 UL (21-215); LIPASE 246 U/L (73-393); MAGNESIUM - SERUM 1.7 mg/dL (1.8-2.4); PRO BNP 56 pg/mL (0-125); TROPONIN-I < 0.017 ng/mL (0.000-0.060)
[2017-08-25 15:59] LABS: INR 0.99 (0.85-1.17); PROTIME 12.7 SECONDS (11.6-15.0)
[2017-08-25 16:01] LABS: D-DIMER-QUANTITATIVE 0.4 ug/mLFEU (0.20-0.54)
== END 2017-08-25 18:54 | disposition home or self-care (01) ==
LOC: D.ER 11:37
PROVIDERS: Nurse Practitioner Family
DX: J20.9 Acute bronchitis, unspecified (principal); E11.9 Type 2 diabetes mellitus without complications; Z79.4 Long term (current) use of insulin; R05 Cough; K21.9 Gastro-esophageal reflux disease without esophagitis; I10 Essential (primary) hypertension; I45.10 Unspecified right bundle-branch block; I44.4 Left anterior fascicular block

== ENCOUNTER 2017-11-21 08:00 | Outpatient (CLI) | payer MEDICARE, MEDICAID | END 2017-11-21 11:49 | disposition home or self-care (01) | LOC: D.MAMMO 08:00 | DX: Z12.31 Encounter for screening mammogram for malignant neoplasm of breast (principal) ==

== ENCOUNTER 2018-04-09 07:16 | Emergency (ER) | payer MEDICARE, MEDICAID ==
[~2018-04-09] VITALS: Ht 157.5 cm; Wt 87.3 kg
[2018-04-09 07:18] VITALS: Ht 157.5 cm; Wt 87.3 kg
[2018-04-09] MEDS ORDERED: PRISTIQ100 MG PO (07:21)
[2018-04-09] MEDS ORDERED: HUMALOG 30100 UNITS/ SC (07:21)
[2018-04-09] MEDS ORDERED: NORVASC5 MG PO (07:21)
[2018-04-09] MEDS ORDERED: LEVEMIR IN100 UNITS/ SC (07:21)
[2018-04-09] MEDS ORDERED: LEVOXYL50 MCG PO (07:22)
[2018-04-09 08:04] LABS: BASOPHILS 0.2 % (0-2); EOSINOPHILS 0.9 % (0-7); HEMATOCRIT 35.6 % (36.0-48.0); HEMOGLOBIN 11.8 g/dL (12-16); IMMATURE GRANULOCYTES 0.3 % (0-5); LYMPHOCYTES 11.4 % (15-50); MCH 29.2 pg (26.0-34.0); MCHC 33.1 g/dL (31.0-37.0); MCV 88.1 fL (80.0-100.0); MEAN PLATELET VOLUME 9.5 fL (7.4-10.4); MONOCYTES 8.5 % (2-11); NEUTROPHILS 78.7 % (40-80); PLATELET COUNT 202 10x3/uL (130-400); RBC 4.04 10x6/uL (4.00-5.40); RDW 13.3 % (11.5-14.5); WBC 11.6 10x3/uL (4.8-10.8)
[2018-04-09 08:17] LABS: ALBUMIN 3.5 g/dL (3.4-5.0); ALKALINE PHOSPHATASE 98 U/L (46-116); ALT (SGPT) 24 U/L (10-68); BILIRUBIN - TOTAL 0.32 mg/dL (0.2-1.3); CALC OSMOLALITY 278 mosm/kg (275-300); CALCIUM 8.7 mg/dL (8.5-10.1); CARBON DIOXIDE 24.3 mmol/L (21.0-32.0); CHLORIDE - SERUM 99 mmol/L (98-107); CREATININE - SERUM 1.2 mg/dL (0.6-1.3); PROTEIN - SERUM 7.8 g/dL (6.4-8.2); SODIUM 135 mmol/L (136-145); UREA NITROGEN 18 mg/dL (7-18); eGFR NON AFRICAN AMERICAN 48 mL/min (90-120)
[2018-04-09 08:18] LABS: GLUCOSE 225 mg/dL (74-106)
[2018-04-09 08:28] LABS: CKMB 0.8 U/L (0.0-3.6); CREATINE KINASE 71 UL (21-215); THYROID STIMULATING HORMONE 0.56 uIU/mL (0.36-3.74)
[2018-04-09 08:29] LABS: TROPONIN-I < 0.017 ng/mL (0.000-0.060)
[2018-04-09] MEDS ORDERED: TENORMIN50 MG PO (15:11)
[2018-04-09 15:38] VITALS: BP 145/64
== END 2018-04-09 15:30 | disposition home or self-care (01) ==
LOC: D.ER 07:16
PROVIDERS: Emergency Medicine
DX: R50.9 Fever, unspecified (principal); D64.9 Anemia, unspecified; E10.65 Type 1 diabetes mellitus with hyperglycemia; Z79.4 Long term (current) use of insulin; J02.9 Acute pharyngitis, unspecified; R00.0 Tachycardia, unspecified; R06.02 Shortness of breath; R05 Cough; E07.9 Disorder of thyroid, unspecified; I10 Essential (primary) hypertension; I44.4 Left anterior fascicular block

== ENCOUNTER → 2018-09-28 09:11 | Outpatient (CLI) | payer MEDICARE, MEDICAID ==
[2018-04-09 07:18] VITALS: BMI 35.2
[~2018-09-28 09:11] MED LIST changes: +HUMALOG 30100 UNITS/ SC; +LEVEMIR IN100 UNITS/ SC; +LEVOXYL50 MCG PO; +NORVASC5 MG PO; +PRISTIQ100 MG PO
== END | disposition home or self-care (01) ==
LOC: D.RT 09:11
PROVIDERS: ATTEND Family Medicine
DX: R06.02 Shortness of breath (principal)

== ENCOUNTER → 2019-01-30 12:12 | Outpatient (CLI) | payer MEDICARE, MEDICAID ==
[2018-04-09 07:18] VITALS: BMI 35.2
[~2019-01-30 12:12] MED LIST changes: +AMITRIPTYLINE H50 MG PO; +BYSTOLIC20 MG PO; +ELIQUIS2.5 MG PO; +HYDROCODON-ACE1 EA10 PO; +PHENERGAN25 M1 PO; +TRAZODONE HCL150 MG PO; +ZANAFLEX4 MG PO
== END | disposition home or self-care (01) ==
LOC: D.CT 12:12
PROVIDERS: ATTEND Family Medicine
DX: R10.2 Pelvic and perineal pain (principal)

== ENCOUNTER 2019-03-02 16:37 | Inpatient (IN) | payer MEDICARE, MEDICAID ==
[~2019-03-02] VITALS: Ht 157.5 cm; Wt 88.0 kg
[~2019-03-02 16:37] MED LIST changes: -AMITRIPTYLINE H50 MG PO; -BYSTOLIC20 MG PO; -ELIQUIS2.5 MG PO; -HYDROCODON-ACE1 EA10 PO; -PHENERGAN25 M1 PO; -TRAZODONE HCL150 MG PO; -ZANAFLEX4 MG PO
--- NOTE | 2019-03-02 19:10 | NUR ---
RN AND LAB AT PT BEDSIDE. IV ATTEMPTS UNSUCCESSFUL AT THIS TIME. PT REPORTS DECREASE IN PAIN AFTER RECEIVING IM INJECTION FOR PAIN. PT AWAKE AND ALERT AT THIS TIME.
[2019-03-02 20:00] VITALS: BP 158/72
[2019-03-02 20:04] LABS: BASOPHILS 0.2 % (0-2); EOSINOPHILS 4.3 % (0-7); HEMATOCRIT 39.9 % (36.0-48.0); HEMOGLOBIN 13.8 g/dL (12-16); IMMATURE GRANULOCYTES 0.3 % (0-5); LYMPHOCYTES 18.9 % (15-50); MCH 29.1 pg (26.0-34.0); MCHC 34.6 g/dL (31.0-37.0); MCV 84.2 fL (80.0-100.0); MEAN PLATELET VOLUME 9.8 fL (7.4-10.4); MONOCYTES 5.5 % (2-11); NEUTROPHILS 70.8 % (40-80); PLATELET COUNT 184 10x3/uL (130-400); RBC 4.74 10x6/uL (4.00-5.40); RDW 13.5 % (11.5-14.5); WBC 12.9 10x3/uL (4.8-10.8)
--- NOTE | 2019-03-02 20:04 | NUR ---
PT ARRIVED ON UNIT VIA STRETCHER ESCORTED BY ER NURSE. POSITIONED IN BED FOR COMFORT WITH LEFT FOOT ELEVATED. IV TO RIGHT FA SALINE LOCKED....CONNECTED TO IV FLUIDS AT 30 ML/HR AND MORPHINE ELECTRIC MULE DRIVER PER ORDER. TEACHING PERFORMED ON USE OF ELECTRIC MULE DRIVER.
[2019-03-02 20:18] LABS: ALBUMIN 3.4 g/dL (3.4-5.0); ANION GAP 12.7 mmol/L (8-16); BILIRUBIN - TOTAL 0.54 mg/dL (0.2-1.3); CALCIUM 9.8 mg/dL (8.5-10.1); CARBON DIOXIDE 28.5 mmol/L (21.0-32.0); CREATININE - SERUM 1.4 mg/dL (0.6-1.3); POTASSIUM - SERUM 4.2 mmol/L (3.5-5.1); PROTEIN - SERUM 7.9 g/dL (6.4-8.2)
--- NOTE | 2019-03-02 20:25 | NUR ---
LOYD GRAHAM APN FOR DR MESA TO ADVISE OF CONSULT. RECEIVED ORDER TO GIVE PHENERGAN 12.5 MG PO Q6 HR FOR NAUSEA. ALSO RECEIVED ORDER TO RE-START TRAZADONE HOME MED- 50 MG PO QHS.
--- NOTE | 2019-03-02 20:47 | NUR ---
GAVE ZOFRAN 4 MG IVP FOR C/O NAUSEA.
--- NOTE | 2019-03-02 20:48 | NUR ---
GAVE TYLENOL 650 MG PO FOR ELEVATED TEMP OF 100.8 DEGREES.
--- NOTE | 2019-03-02 21:40 | NUR ---
GAVE PHENERGAN 12.5 MG PO AND TRAZADONE 50 MG PER PRDER FOR NAUSEA AND SLEEP.
[2019-03-02] MEDS ORDERED: AMITRIPTYLINE H50 MG PO (21:44)
[2019-03-02] MEDS ORDERED: BYSTOLIC20 MG PO (21:44)
[2019-03-02] MEDS ORDERED: ZANAFLEX4 MG PO (21:45)
[2019-03-02] MEDS ORDERED: TRAZODONE HCL150 MG PO (21:46)
[2019-03-02] MEDS ORDERED: PHENERGAN25 M1 PO (21:46)
[2019-03-02 22:43] VITALS: BP 158/72; BMI 35.5
--- NOTE | 2019-03-02 23:01 | NUR ---
ADMISSION ASSESSMENT AND HISTORY COMPLETE.
[2019-03-03] VITALS: BP 114/63
--- NOTE | 2019-03-03 00:48 | NUR ---
GAVE TYLENOL 650 MG PO FOR TEMP OF 101.2 DEGREES. WILL MONITOR FOR EFFECTIVENESS.
--- NOTE | 2019-03-03 01:00 | NUR ---
TRIED PUREWICK EXTERNAL CATHETER ON PT, BUT SHE WAS UNABLE TO TOLERATE. ASSISTED PT UP TO BEDSIDE COMMODE...PIVOTED ON RIGHT FOOT...2 PERSON ASSIST.
--- NOTE | 2019-03-03 01:41 | NUR ---
GAVE ZOFRAN 4 MG IVP FOR C/O NAUSEA. WILL MONITOR FOR EFFECTIVENESS.
--- NOTE | 2019-03-03 03:35 | NUR ---
GAVE PHEN 12.5 MG PO PER PRN ORDER, PER REQUEST FOR NAUSEA.
[2019-03-03 04:00] VITALS: BP 163/80
[2019-03-03 06:32] LABS: BASOPHILS 0.3 % (0-2); EOSINOPHILS 3.2 % (0-7); HEMATOCRIT 38.3 % (36.0-48.0); HEMOGLOBIN 12.7 g/dL (12-16); IMMATURE GRANULOCYTES 0.3 % (0-5); LYMPHOCYTES 22.3 % (15-50); MCH 28.3 pg (26.0-34.0); MCHC 33.2 g/dL (31.0-37.0); MCV 85.3 fL (80.0-100.0); MEAN PLATELET VOLUME 9.8 fL (7.4-10.4); MONOCYTES 7.6 % (2-11); NEUTROPHILS 66.3 % (40-80); PLATELET COUNT 220 10x3/uL (130-400); RBC 4.49 10x6/uL (4.00-5.40); RDW 13.8 % (11.5-14.5); WBC 11.9 10x3/uL (4.8-10.8)
[2019-03-03 07:22] LABS: ALBUMIN 3.3 g/dL (3.4-5.0); ANION GAP 14.9 mmol/L (8-16); BILIRUBIN - TOTAL 0.75 mg/dL (0.2-1.3); CALCIUM 9.1 mg/dL (8.5-10.1); CREATININE - SERUM 1.4 mg/dL (0.6-1.3); POTASSIUM - SERUM 3.9 mmol/L (3.5-5.1); PROTEIN - SERUM 7.5 g/dL (6.4-8.2)
[2019-03-03 08:21] VITALS: BP 146/68
[2019-03-03 10:07] LABS: APPEARANCE CLEAR (CLEAR); BILIRUBIN NEGATIVE (NEGATIVE); COLOR YELLOW (YELLOW); KETONE NEGATIVE (NEGATIVE); NITRITE NEGATIVE (NEGATIVE); PROTEIN NEGATIVE (NEGATIVE); SPECIFIC GRAVITY 1.015 (1.005-1.020); UROBILINOGEN NORMAL (NORMAL)
[2019-03-03 10:08] LABS: GLUCOSE 1000 mg/dL (NEGATIVE)
--- NOTE | 2019-03-03 10:49 | NUR ---
PT STATES NAUSEA DUE TO MORPHINE AND HESITANT TO USE MORPHINE DUE TO NAUSEA UNTIL TIME FOR PHENAGREN. NO OTHER NEEDS VOICED, CONTINUE WITH PLAN OF CARE
[2019-03-03 11:57] VITALS: BP 160/59
--- NOTE | 2019-03-03 15:44 | NUR ---
PT STATED NAUSEOUS AND STATED THAT ZOFRAN DOES NOT WORK FOR HER, ADVISED OTHER MEDICINE HAS BEEN DC PT ALSO WANTS DILAUDID DUE TO MORPHINE MAKES HER THIS WAY, PAGED DR ALBA.
--- NOTE | 2019-03-03 16:32 | NUR ---
I have reviewed this patient and I concur with the Shift Assessment completed by the Licensed Practical Nurse today this shift.
[2019-03-03 16:48] VITALS: BP 145/56
--- NOTE | 2019-03-03 19:15 | NUR ---
RECEIVED CARE FROM DAY NURSE. LYING IN BED WATCHING TV. NO NEEDS VOICED AT THIS TIME. CALL LIGHT AT SIDE. IV INFUSING PER ORDER TO PATENT RIGHT FA.
[2019-03-03 21:00] VITALS: BP 150/68
--- NOTE | 2019-03-04 01:00 | NUR ---
I have reviewed this patient and I concur with the Shift Assessment completed by the Licensed Practical Nurse today this shift.
[2019-03-04 01:33] VITALS: BP 130/60
[2019-03-04 04:00] VITALS: BP 126/84
[2019-03-04 06:24] LABS: BASOPHILS 0.4 % (0-2); EOSINOPHILS 5.9 % (0-7); HEMATOCRIT 34.3 % (36.0-48.0); HEMOGLOBIN 11.2 g/dL (12-16); IMMATURE GRANULOCYTES 0.3 % (0-5); LYMPHOCYTES 25.5 % (15-50); MCH 28.3 pg (26.0-34.0); MCHC 32.7 g/dL (31.0-37.0); MCV 86.6 fL (80.0-100.0); MEAN PLATELET VOLUME 9.5 fL (7.4-10.4); MONOCYTES 7.1 % (2-11); NEUTROPHILS 60.8 % (40-80); RBC 3.96 10x6/uL (4.00-5.40); RDW 13.7 % (11.5-14.5); WBC 9.2 10x3/uL (4.8-10.8)
[2019-03-04 06:29] LABS: ANION GAP 12.4 mmol/L (8-16); CALCIUM 8.2 mg/dL (8.5-10.1); CARBON DIOXIDE 25.1 mmol/L (21.0-32.0); CREATININE - SERUM 1.1 mg/dL (0.6-1.3)
[2019-03-04 06:35] LABS: POTASSIUM - SERUM 4.5 mmol/L (3.5-5.1)
[2019-03-04 06:52] LABS: PLATELET COUNT 168 10x3/uL (130-400)
[2019-03-04 08:15] VITALS: BP 131/73
[2019-03-04 12:15] VITALS: BP 143/78
[2019-03-04 12:45] VITALS: Ht 157.5 cm; Wt 88.0 kg
--- NOTE | 2019-03-04 13:39 | NUR ---
Rehab Prescreening Consult recieved and the chart has been reviewed. She has [facility] managed Medicare and will require a preauth for the acute rehab. She is having surgery today. Post op she will need a PT and an OT eval. Once completed all information will be submitted to her insurance for their review. Taylor Mensah RN Clinical liaison, Rehab
--- NOTE | 2019-03-04 14:13 | NUR ---
POP BLOCK AND FEM BLOCK FOR PROCEEDURE. NO PAIN IN RR
[2019-03-04 14:23] VITALS: BP 139/66
--- NOTE | 2019-03-04 16:37 | MORECARE ---
CASE MANAGEMENT DISCHARGE SUMMARY PATIENT: RABIA MORENO UNIT: [id number] ADM DATE: 03/02/19 AGE: 68 : 52 SEX: F ROOM/BED: D.2212 AUTHOR: MARIA C ENRIQUEZ PHYSICIAN: REFERRING PHYSICIAN: MAURA WONG MD DATE OF SERVICE: 03/04/19 Discharge Plan Patient Name: RABIA MORENO [facility] [facility] 1950 Planned Disposition: Anticipated Discharge Date: Discharge Date: Expected LOS: Initial Reviewer: [email or web address] Initial Review Date: 03/04/2019 Generated: 03/04/19 5:37 pm Comments DCP- Discharge Planning Updated by [email or web address]: Molly Hernandez on 03/04/19 3:[address] Patient Name: RABIA MORENO Admission Status: ER Accout number: [id number] Admission Date: 03-02-2019 : 1950 Admission Diagnosis: Attending: MAURA VILLANUEVA Current LOS: 2 Anticipated DC Date: Planned Disposition: Primary Insurance: [facility] MEDICARE SOLUTIONS Discharge Planning Comments: CM SPOKE WITH PATIENT PER REQUEST. STATES SHE WOULD LIKE INPT REHAB IF POSSIBLE. I TOLD PATIENT I WOULD MAKE SURE CONSULTS WERE IN BECAUSE REHAB WOULD NEED THOSE. CM WILL GET BACK WITH HER WHEN EVALS ARE DONE. Corporate Security Officer: Molly Hernandez Patient Name: RABIA MORENO Page [id number] at 1637 All edits/amendments must be made on the electronic document DICTATION DATE: 03/04/19 1637 COMMERCIAL CREDIT HEAD: RITA 03/04/19 1637 RPT#: [id number] DC DATE: STATUS: ADM IN [facility] [address] [place] [address] END OF REPORT
[2019-03-04 20:34] VITALS: BP 138/74
--- NOTE | 2019-03-04 21:03 | NUR ---
PATIENT'S FSBS 571. BOLIVAR KEITH PAGED. ORDER TO GIVE 28 UNITS AND TO RECHECK AT 2300 AND 0100. RETURN CALL AT 2300 TO BOLIVAR KEITH AND LET HIM KNOW FSBS. FSBS CHECK CHANGED FROM ACHS TO Q4 HOURS.
--- NOTE | 2019-03-04 23:00 | NUR ---
PATIENT'S FSBS 432. CALLED BOLIVAR KEITH. ORDER FOR 14 UNITS OF HUMULIN R. NO FSBS AT 0100. WILL CHECK FSBS AT 0400 PER Q 4 HOUR ORDERS.
[2019-03-05 01:07] VITALS: BP 120/55
--- NOTE | 2019-03-05 02:22 | NUR ---
PATIENT STATES SHE IS HAVING PRESSURE IN CHEST. BOLIVAR KEITH PAGED. NEW ORDER FOR CARDIAC ENZYMES X3 AND EKG X3. EKG SHOWS NORMAL SINUS RHYTHM AND BIFASCICULAR BLOCK. BOLIVAR KEITH NOTIFIED AND STATED TO LET HIM KNOW IF TROPONIN ELEVATED.
[2019-03-05 03:40] LABS: BASOPHILS 0.1 % (0-2); EOSINOPHILS 0.1 % (0-7); HEMATOCRIT 35.3 % (36.0-48.0); HEMOGLOBIN 11.5 g/dL (12-16); IMMATURE GRANULOCYTES 0.1 % (0-5); LYMPHOCYTES 13.4 % (15-50); MCH 28.3 pg (26.0-34.0); MCHC 32.6 g/dL (31.0-37.0); MCV 86.9 fL (80.0-100.0); MEAN PLATELET VOLUME 9.8 fL (7.4-10.4); MONOCYTES 6.4 % (2-11); NEUTROPHILS 79.9 % (40-80); RBC 4.06 10x6/uL (4.00-5.40); RDW 13.3 % (11.5-14.5); WBC 7.3 10x3/uL (4.8-10.8)
[2019-03-05 03:43] LABS: PLATELET COUNT 224 10x3/uL (130-400)
[2019-03-05 04:14] LABS: CALCIUM 8.4 mg/dL (8.5-10.1); CARBON DIOXIDE 26.9 mmol/L (21.0-32.0); CHLORIDE - SERUM 99 mmol/L (98-107); CKMB 1.1 U/L (0.0-3.6); CREATINE KINASE 75 UL (21-215); MAGNESIUM - SERUM 1.7 mg/dL (1.8-2.4); POTASSIUM - SERUM 4.6 mmol/L (3.5-5.1); SODIUM 134 mmol/L (136-145); UREA NITROGEN 17 mg/dL (7-18)
[2019-03-05 04:17] LABS: CALC OSMOLALITY 285 mosm/kg (275-300); CREATININE - SERUM 1.5 mg/dL (0.6-1.3); GLUCOSE 392 mg/dL (74-106); TROPONIN-I < 0.017 ng/mL (0.000-0.060); eGFR NON AFRICAN AMERICAN 37 mL/min (90-120)
[2019-03-05 04:59] VITALS: BP 119/60
--- NOTE | 2019-03-05 06:44 | NUR ---
I have reviewed this patient and I concur with the Shift Assessment completed by the Licensed Practical Nurse today this shift.
[2019-03-05 08:33] VITALS: BP 118/55
[2019-03-05 09:43] LABS: CKMB 1.4 U/L (0.0-3.6); CREATINE KINASE 85 UL (21-215); TROPONIN-I < 0.017 ng/mL (0.000-0.060)
[2019-03-05 13:30] VITALS: BP 150/74
--- NOTE | 2019-03-05 14:02 | MORECARE ---
CASE MANAGEMENT DISCHARGE SUMMARY PATIENT: RABIA MORENO UNIT: [id number] ADM DATE: 03/02/19 AGE: 68 : 52 SEX: F ROOM/BED: D.2212 AUTHOR: ZOEDOC PHYSICIAN: REFERRING PHYSICIAN: MAURA WONG MD DATE OF SERVICE: 03/05/19 Discharge Plan Patient Name: RABIA MORENO [facility]:[place] : 1950 Planned Disposition: Inpatient Rehab Anticipated Discharge Date: Discharge Date: Expected LOS: Initial Reviewer: [email or web address] Initial Review Date: 03/04/2019 Generated: 03/05/19 3:02 pm Comments DCP- Discharge Planning Updated by [email or web address]: Molly Hernandez on 03/04/19 3:[address] Patient Name: RABIA MORENO Admission Status: ER Accout number: [id number] Admission Date: 03-02-2019 : 1950 Admission Diagnosis: Attending: MAURA VILLANUEVA Current LOS: 2 Anticipated DC Date: Planned Disposition: Primary Insurance: [facility] MEDICARE SOLUTIONS Discharge Planning Comments: CM SPOKE WITH PATIENT PER REQUEST. STATES SHE WOULD LIKE INPT REHAB IF POSSIBLE. I TOLD PATIENT I WOULD MAKE SURE CONSULTS WERE IN BECAUSE REHAB WOULD NEED THOSE. CM WILL GET BACK WITH HER WHEN EVALS ARE DONE. Chemical Test Engineer: Molly Hernandez DCPIA - Discharge Planning Initial Assessment Updated by [email or web address]: Muna Quintero on 03/05/19 1:57 pm * Is the patient Alert and Oriented? Yes * How many steps to enter\exit or inside your home? * PCP YADY DESIR * Pharmacy [facility] * Preadmission Environment Home Alone * ADLs Independent * Equipment Cane CPAP * List name and contact numbers for known caregivers / representatives who currently or will assist patient after discharge: GARCIA CELESTIN [phone] * Verbal permission to speak to the caregivers and representatives has been obtained from the patient. N/A * Community resources currently utilized None * Additional services required to return to the preadmission environment? Yes * Can the patient safely return to the preadmission environment? No * Has this patient been hospitalized within the prior 30 days at any hospital? No Last DP export: 03/04/19 3:37 p Patient Name: RABIA MORENO Page 36061 at 1402 All edits/amendments must be made on the electronic document DICTATION DATE: 03/05/191401 LONG LINES OPERATOR: RITA 03/05/191401 RPT#: [id number] DC DATE: STATUS: ADM IN [facility] [address] [place] [address] END OF REPORT
--- NOTE | 2019-03-05 14:09 | MORECARE ---
CASE MANAGEMENT DISCHARGE SUMMARY PATIENT: RABIA MORENO UNIT: [id number] ADM DATE: 03/02/19 AGE: 68 : 52 SEX: F ROOM/BED: D.2212 AUTHOR: MARIA C ENRIQUEZ PHYSICIAN: REFERRING PHYSICIAN: MAURA WONG MD DATE OF SERVICE: 03/05/19 Discharge Plan Patient Name: RABIA MORENO Facility[facility]:[place] : 1950 Planned Disposition: Inpatient Rehab Anticipated Discharge Date: Discharge Date: Expected LOS: Initial Reviewer: [email or web address] Initial Review Date: 03/04/2019 Generated: 03/05/19 3:09 pm Comments DCP- Discharge Planning Updated by [email or web address]: Muna Quintero on 03/05/19 1:[address] Patient Name: RABIA MORENO Admission Status: ER Accout number: [id number] Admission Date: 03-02-2019 : 1950 Admission Diagnosis:DISPLACED BIMALLEOLAR FRACTURE OF LEFT LOWER LEG, INIT Attending: MAURA VILLANUEVA Current LOS: 3 Anticipated DC Date: Planned Disposition: Inpatient Rehab Primary Insurance: [facility] MEDICARE SOLUTIONS Discharge Planning Comments: CM met with patient to complete initial dc planning assessment. CM educated patient on the CM role and verbal consent given by patient to complete assessment. Patient lives at home by herself where she was independent with her care. At discharge patient would like to go to inpatient rehab at [facility] and feels this is a safest discharge. CM discussed availability of home health, rehab services, and medical equipment. She has a cane and a CPAP (she owns) Dr Celestin will be her petrol tanker driver home. I discussed that she has managed medicare and it will have to be approved for inpatient rehab. She asked about a walking boot or shoe for her good foot. CM will continue to follow and will assist as needed with dc plans/needs. Education Faculty Member: Muna Quintero DCP- Discharge Planning Updated by [email or web address]: Molly Hernandez on 03/04/19 3:[address] Patient Name: RABIA MORENO Admission Status: ER Accout number: [id number] Admission Date: 03-02-2019 : 1950 Admission Diagnosis: Attending: MAURA VILLANUEVA Current LOS: 2 Anticipated DC Date: Planned Disposition: Primary Insurance: [facility] MEDICARE SOLUTIONS Discharge Planning Comments: CM SPOKE WITH PATIENT PER REQUEST. STATES SHE WOULD LIKE INPT REHAB IF POSSIBLE. I TOLD PATIENT I WOULD MAKE SURE CONSULTS WERE IN BECAUSE REHAB WOULD NEED THOSE. CM WILL GET BACK WITH HER WHEN EVALS ARE DONE. Education Faculty Member: Molly Hernandez DCPIA - Discharge Planning Initial Assessment Updated by [email or web address]: Muna Quintero on 03/05/19 1:57 pm * Is the patient Alert and Oriented? Yes * How many steps to enter\exit or inside your home? * PCP YADY DESIR * Pharmacy [facility] * Preadmission Environment Home Alone * ADLs Independent * Equipment Cane CPAP * List name and contact numbers for known caregivers / representatives who currently or will assist patient after discharge: GARCIA CELESTIN [phone] * Verbal permission to speak to the caregivers and representatives has been obtained from the patient. N/A * Community resources currently utilized None * Additional services required to return to the preadmission environment? Yes * Can the patient safely return to the preadmission environment? No * Has this patient been hospitalized within the prior 30 days at any hospital? No Last DP export: 03/05/19 1:03 p Patient Name: RABIA MORENO Page 89537 at 1409 All edits/amendments must be made on the electronic document DICTATION DATE: 03/05/191408 CONSTRUCTION DIRECTOR: RITA 03/05/19 140 RPT#: [id number] DC DATE: STATUS: ADM IN [facility] [address] [place] [address] END OF REPORT
[2019-03-05 15:08] LABS: CKMB 1.5 U/L (0.0-3.6); CREATINE KINASE 86 UL (21-215)
[2019-03-05 15:10] LABS: TROPONIN-I < 0.017 ng/mL (0.000-0.060)
[2019-03-05 18:24] VITALS: BP 154/65
--- NOTE | 2019-03-05 19:44 | NUR ---
I have reviewed this patient and I concur with the Shift Assessment completed by the Licensed Practical Nurse today this shift.
[2019-03-05 21:28] VITALS: BP 139/68
--- NOTE | 2019-03-05 21:30 | NUR ---
A/O WITH NO SIGNS OF ACUTE DISTRESS. IV TO THE LT FOREARM WITH NO REDNESS OR SWELLING. GRADY IN PLACE. DC BUSINESS DEAN BEFORE GIVING NORCO TAB. EDUCATED PT THAT I COULD NOT GIVE PAIN MEDS WITH BP AND SLEEPING MEDS. PT DECIDED TO TAKE PAIN MEDS AND WAIT ON THE SLEEPING PILL. WILL CONTINUE WITH PLAN OF CARE.
[2019-03-06 01:13] VITALS: BP 136/64
[2019-03-06 05:45] VITALS: BP 120/70
[2019-03-06 06:35] LABS: BASOPHILS 0.2 % (0-2); EOSINOPHILS 4.9 % (0-7); HEMATOCRIT 34.4 % (36.0-48.0); IMMATURE GRANULOCYTES 0.3 % (0-5); LYMPHOCYTES 33.3 % (15-50); MCH 28.1 pg (26.0-34.0); MEAN PLATELET VOLUME 9.5 fL (7.4-10.4); MONOCYTES 6.9 % (2-11); NEUTROPHILS 54.4 % (40-80); PLATELET COUNT 229 10x3/uL (130-400); RBC 3.91 10x6/uL (4.00-5.40); RDW 13.6 % (11.5-14.5)
[2019-03-06 06:40] LABS: WBC 9.8 10x3/uL (4.8-10.8)
[2019-03-06 07:01] LABS: ANION GAP 9.4 mmol/L (8-16); CALCIUM 8.3 mg/dL (8.5-10.1); CARBON DIOXIDE 29.8 mmol/L (21.0-32.0); CREATININE - SERUM 1.3 mg/dL (0.6-1.3); MAGNESIUM - SERUM 1.9 mg/dL (1.8-2.4); POTASSIUM - SERUM 4.2 mmol/L (3.5-5.1)
[2019-03-06 07:06] LABS: PHOSPHOROUS 4.5 mg/dL (2.5-4.9)
--- NOTE | 2019-03-06 08:05 | NUR ---
PT RESTING IN BED WITH EYES CLOSED. PT DOES NOT OPEN EYES UPON STAFF ENTERING ROOM, BUT DOES ACKNOWLEDGE STAFF AND COMMUNICATES WITH STAFF. RATES PAIN 5/10 AT THIS TIME. IV TO RIGHT FOREARM SALINE LOC. O2 @ 2L NC IN PLACE. F/C PATENT TO GRAVITY. DENIES FURTHER NEEDS AT THIS TIME. CL WITHIN REACH. ENCOURAGED TO CALL WITH NEEDS. CONTINUE POC
[2019-03-06 08:11] VITALS: BP 149/76
[2019-03-06 13:38] VITALS: BP 129/61
--- NOTE | 2019-03-06 14:00 | NUR ---
Nutrition follow-up: Diet: ADA consistent CHO PO intake 100% of meals Labs reviewed Pt reports good appetite at this time; requesting biscuit that was left off breakfast tray. Biscuit provided Labs reviewed RDN following.
[2019-03-06 16:45] VITALS: BP 104/50
--- NOTE | 2019-03-06 16:49 | NUR ---
OT NOTE: PT COMPLETED BED MOBILITY WITH CGA USING SIDE RAILING. PT COMPLETED BUE AROM EXS. PT COMPLETED FACE WASHING WITH SET UP. PT STATED SHE HAS REQUESTED A BOOT FOR EXTRA SUPPORT. THANK YOU, CELINE HEBERT
--- NOTE | 2019-03-06 19:45 | NUR ---
LYING IN BED. ALERT AND ORIENTED X4. C/O PAIN IN LT ANKLE 8. MEDICATED WITH NORCO. GRADY CATH PATENT AND DRAINING YELLOW URINE. CAST/SPLINT NOTED TO LT ANKLE. ABRASION NOTED TO RT KNEE. SALINE LOCK NOTED TO RT FOREARM. CL IN REACH.
[2019-03-06 20:00] VITALS: BP 124/60
[2019-03-07] VITALS: BP 125/64
--- NOTE | 2019-03-07 00:05 | NUR ---
MEDICATED WITH PHENERGAN FOR C/O NAUSEA. CL IN REACH.
[2019-03-07 04:00] VITALS: BP 142/60
[2019-03-07 07:27] LABS: ANION GAP 10.7 mmol/L (8-16); CALCIUM 8.2 mg/dL (8.5-10.1); CARBON DIOXIDE 29.4 mmol/L (21.0-32.0); CREATININE - SERUM 1.2 mg/dL (0.6-1.3); MAGNESIUM - SERUM 1.6 mg/dL (1.8-2.4); POTASSIUM - SERUM 4.1 mmol/L (3.5-5.1)
[2019-03-07 07:28] LABS: BASOPHILS 0.4 % (0-2); EOSINOPHILS 6.8 % (0-7); HEMATOCRIT 33.1 % (36.0-48.0); HEMOGLOBIN 10.6 g/dL (12-16); IMMATURE GRANULOCYTES 0.4 % (0-5); LYMPHOCYTES 34.7 % (15-50); MCH 28.1 pg (26.0-34.0); MCV 87.8 fL (80.0-100.0); MEAN PLATELET VOLUME 9.4 fL (7.4-10.4); MONOCYTES 7.6 % (2-11); NEUTROPHILS 50.1 % (40-80); PLATELET COUNT 214 10x3/uL (130-400); RBC 3.77 10x6/uL (4.00-5.40); RDW 13.5 % (11.5-14.5)
[2019-03-07] MEDS ORDERED: ELIQUIS2.5 MG PO (07:52)
[2019-03-07] MEDS ORDERED: HYDROCODON-ACE1 EA10 PO (07:52)
--- NOTE | 2019-03-07 08:12 | NUR ---
AWAKE AND ALERT. ORIENTED X3. LUNGS ARE CLEAR BILATERALLY, NO COUGH NOTED. SKIN IS INTACT WITHOUT REDNESS EXCEPT INCISION TO LEFT ANKLE. DRY INTACT DRESSING IN PLACE TO SAME. GRADY PATENT WITH CLEAR YELLOW URINE. IV TO RIGHT FOREARM IS PATENT WITHOUT REDNESS AT INSERTION SITE. DENIES NEEDS.
--- NOTE | 2019-03-07 09:30 | NUR ---
ATE MOST OF BREAKFAST. REQUESTED AND GIVNE ONE HYDROCODONE PO FOR C/O LEFT ANKLE PAIN LEVEL 9. WILL MONITOR
[2019-03-07 09:42] VITALS: BP 147/69
--- NOTE | 2019-03-07 10:00 | OP ---
PATIENT NAME: RABIA MORENO MEDICAL RECORD: [id number] :[birth year] LOCATION:D.MS [address] ADMISSION DATE:03/02/19 SURGEON: ANA MESA MD DATE OF OPERATION: 03/04/2019 PREOPERATIVE DIAGNOSIS: Bimalleolar ankle fracture. POSTOPERATIVE DIAGNOSIS: Bimalleolar ankle fracture. PROCEDURE: Open reduction internal fixation of the lateral malleolus fracture. SURGEON: Ana Mesa MD SPECIALIST EMPLOYEE LABOR RELATIONS: Trey INTRAOPERATIVE COMPLICATIONS: None. SUMMARY OF PATHOLOGIC FINDINGS: The patient was indeed found to have displaced lateral malleolus fracture. The inferior colliculus portion of the medial malleolus was nondisplaced and very small. Therefore, it was left alone. OPERATIVE SUMMARY IN DETAIL: After obtaining the appropriate preoperative orthopedic surgery consent as well as anesthetic consultation, evaluation and clearance, the patient was brought to the operating room and placed on the operating table in supine position. After general laryngeal mask airway was administered, tourniquet was placed about the proximal aspect of left lower extremity. Left lower extremity was then prepped and draped in routine sterile fashion. Leg was elevated and exsanguinated. Tourniquet was inflated to 350 mmHg. Under fluoroscopic guidance, a lateral malleolar approach was done from the tip of the lateral malleolus of the shaft of the fibula. Fracture was identified and interposed fracture hematoma was removed. Reduction maneuver was performed and stabilized with a reduction forceps. The VariAx II system was brought in, a 4-hole fibular plate was then utilized. Serial and sequential drill and fill was done with a combination of both locking and nonlocking screws for the appropriate compression. Again, this was all done under fluoroscopy. Having completed this, radiographs were taken in AP and lateral planes and sent for final review. Wounds were irrigated and closed by Gabriel Yang with #1 Vicryl, 2-0 Vicryl and skin giovany. Sterile dressings were applied. L&U splint was applied after the tourniquet was deflated. The patient was awakened and taken to the recovery room in stable condition. All final needle and sponge counts were correct. TRANSINT:[id number] Voice Confirmation ID: [id number] DOCUMENT ID: [id number] ANA MESA MD at 1000 CC: [id number] DICTATION DATE: 03/06/19 0845 QUALITY CONTROL TECHNICIAN: 03/06/19 1300 ADM IN [facility] [address] [place] [id number]
--- NOTE | 2019-03-07 11:00 | NUR ---
CRYING AND YELLING WITH PAIN TO LEFT ANKLE. MICH AVILA NOTIFIED OF SAME. NEW ORDERS RECEIVED. SPLINT REMOVED FROM LEFT ANKLE PER ORDERS. WILL MONITORL PATIENT PLACED ON BED REST FOR NOW. ALSO GIVEN 4MG ZANAFELX TO HELP WITH PAIN. WILL CONTINUE TO MONITOR. ICE PLACED TO ANKLE.
--- NOTE | 2019-03-07 12:00 | NUR ---
Rehab Note- Spoke with [facility] intake department- case is still peniding with review at this time with the certified medical coding specialist. Will continue to await determination. THank you for this referral! Minnie Frost RN Clinical Liaison, [facility] Rehab
[2019-03-07 13:05] VITALS: BP 127/52
--- NOTE | 2019-03-07 14:54 | NUR ---
REQUESTED AND GIVEN ONE HYDROCODONE WITH ONE PHENERGAN PO FOR C/O PAIN LEVEL 10 AND NAUSEA. WILL MONITOR.
--- NOTE | 2019-03-07 16:00 | NUR ---
FSBS 319. GIVEN 20 UNITS REGULAR SUBQ PER SS. GLADYS AVILA HERE. REAPPLIED SPLINT.
[2019-03-07 16:48] VITALS: BP 116/47
--- NOTE | 2019-03-07 18:38 | NUR ---
SITTING UP IN BED EATING SUPPER. DENIES NEEDS. NO C/O AT THIS TIME. NO CHANGES NOTED. ICE TO LEFT ANKLE.
--- NOTE | 2019-03-07 19:45 | NUR ---
LYING IN BED. ALERT AND ORIENTED X4. RESP EVEN AND NONLABORED. REPORTS PAIN IN LT ANKLE 7 AND REQUESTS PERCOCET AND PHENERGAN. CAST/SPLINT NOTED TO LT ANKLE. WIGGLES TOES. 1+ EDEMA NOTED TO BLE. ABRASION NOTED TO RT KNEE. GRADY CATH PATENT AND DRAINING YELLOW URINE. ABD IS DISTENDED AND BS ARE HYPOACTIVE X4 QUADS. ABD FIRM. EDUCATED ON FREQUENT USE OF OPIATES AND EFFECTS OF CONSTIPATION. SHE VERBALIZED UNDESTANDING AND STATES SHE MIGHT TAKE A LAXATIVE TOMORROW. REPORTS LAST BM ON 03/02/19. SALINE LOCK NOTED TO RT FOREARM. NO DISTRESS. SR ELEVATED X2. CL IN REACH.
--- NOTE | 2019-03-07 19:55 | NUR ---
MEDICATED WITH PERCOCET AND PHENERGAN FOR C/O PAIN IN LT ANKLE. STATES SHE IS A LITTLE NAUSEATED BUT THEN TELLS STAFF THAT THE DOCTOR TOLD HER SHE COULD TAKE THE PHENERGAN EVERYTIME SHE TAKES A PAIN PILL.
[2019-03-07 20:00] VITALS: BP 116/61
[2019-03-08] VITALS: BP 149/70
--- NOTE | 2019-03-08 02:00 | NUR ---
REQUESTING PERCOCET AND PHENERGAN. PT SLURRING WORDS AND EXTREMELY DROWSY. EXPLAINED THAT COMPUTER SYSTEM WAS GOING DOWN AND COULDNT ACCESS EMR.
--- NOTE | 2019-03-08 02:15 | NUR ---
LYING IN BED SNORING. NO DISTRESS. CL IN REACH.
[2019-03-08 04:00] VITALS: BP 117/63
--- NOTE | 2019-03-08 04:17 | NUR ---
TUMBLER DRIER OPERATOR REPORTED TO THIS CLINICAL PROJECT LEADER THAT WHEN ATTEMPTING TO GET VITAL SIGNS, PT STARTING CURSING HER, YELLED AT HER THAT "YOU'RE FUCKING HURTING MY ARM, WHAT THE FUCK ARE YOU DOING. YOU ARE EVIL." PT PULLED B/P CUFF OFF AND REFUSED V/S. PT THEN USED CALL LIGHT AND ASKED FOR PAIN MEDS. EXPLAINED TO PT THAT THIS CLINICAL PROJECT LEADER HAD JUST DID A FSBS ON HER AND SHE WAS SLURRING HER WORDS AND HAD DIFF FOLLOWING COMMANDS AND THAT THIS CLINICAL PROJECT LEADER DIDNT FEEL COMFORTABLE GIVING HER NARCOTICS BECAUSE SHE HAS APPEARED SEDATED ALL NIGHT AND THAT THIS CLINICAL PROJECT LEADER NEEDS TO CHECK HER VITAL SIGNS BEFORE ADMINISTERING ANY MEDS THAT WOULD FURTHER SEDATE HER. SHE BEGAN YELLING AND CURSING THIS CLINICAL PROJECT LEADER AND THREATENING HER. SHE THEN AGREED TO HAVE V/S TAKEN. REPORTED TO CHARGE NURSE NELSY ORTEGA.
--- NOTE | 2019-03-08 04:31 | NUR ---
V/S STABLE. MEDICATED WITH PERCOCET AND PHENERGAN FOR C/O PAIN IN LT ANKLE RATING 9. STATES, "ALL PAIN MEDICINE MAKES ME NAUSEATED" CL IN REACH.
[2019-03-08 05:15] LABS: BASOPHILS 0.3 % (0-2); EOSINOPHILS 7.5 % (0-7); HEMATOCRIT 34.3 % (36.0-48.0); HEMOGLOBIN 10.6 g/dL (12-16); IMMATURE GRANULOCYTES 0.5 % (0-5); LYMPHOCYTES 33.8 % (15-50); MCH 28.1 pg (26.0-34.0); MCHC 30.9 g/dL (31.0-37.0); MEAN PLATELET VOLUME 9.4 fL (7.4-10.4); MONOCYTES 8.7 % (2-11); NEUTROPHILS 49.2 % (40-80); PLATELET COUNT 233 10x3/uL (130-400); RBC 3.77 10x6/uL (4.00-5.40); RDW 13.4 % (11.5-14.5); WBC 6.7 10x3/uL (4.8-10.8)
[2019-03-08 06:01] LABS: ANION GAP 13.5 mmol/L (8-16); CALCIUM 8.7 mg/dL (8.5-10.1); CARBON DIOXIDE 28.9 mmol/L (21.0-32.0); CREATININE - SERUM 1.1 mg/dL (0.6-1.3); POTASSIUM - SERUM 4.4 mmol/L (3.5-5.1)
[2019-03-08 08:47] VITALS: BP 144/56
--- NOTE | 2019-03-08 09:10 | NUR ---
PT REFUSED TO TAKE PEROCECT AT THIS TIME D/T HER NOT BEING ABLE TO TAKE HER PHENERGAN WITH IT.
--- NOTE | 2019-03-08 09:34 | NUR ---
CALLED TO PT ROOM, SHE IS UPSET. PT STATES SHE CAN NOT TAKE HER PAIN PILL WITHOUT PHENERGAN. PHENERGAN DOSE NOT DUE UNTIL AT LEAST 1030. SHE IS UPSET BECAUSE IT IS NOT ORDERED EVERY FOUR HOURS. PAGE TO GLADYS AVILA APN.
--- NOTE | 2019-03-08 09:49 | NUR ---
IV WILL NOT FLUSH. HERMELINDA FERGUSON
--- NOTE | 2019-03-08 09:53 | NUR ---
CALL WAS PLACED TO BLAST FURNACE SUPERVISOR ABOUT CHANGING PHENEGRAN FROM Q 6 HRS TO Q 4 HRS PRN. REC'D CALL BACK WITH [employer] TO CHANGE ORDERS TO Q 4 HRS PRN.
--- NOTE | 2019-03-08 10:17 | NUR ---
Recieved a call from Aileen at [facility]. The associate medical director has denied ARU for this patient. If the physician would like to do a peer to peer Aileen can arrange it by calling her at [phone] by 3:00 pm today. Taylor Mensah RN Clinical Liaison, Rehab
[2019-03-08 13:38] VITALS: BP 151/55
--- NOTE | 2019-03-08 14:58 | NUR ---
OT NOTE: PT COMPLETED BED MOB TASKS USING SIDE RAILS AND TRAP BAR. PT COMPLETED FACE WASH AND HAIR GROOMING WITH SET UP. PT COMPLETED UE AROM AXS. THANK YOU, CELINE HEBERT
[2019-03-08 16:45] VITALS: BP 138/67
--- NOTE | 2019-03-08 17:02 | MORECARE ---
CASE MANAGEMENT DISCHARGE SUMMARY PATIENT: RABIA MORENO UNIT: [id number] ADM DATE: 03/02/19 AGE: 68 : 52 SEX: F ROOM/BED: D.2212 AUTHOR: MARIA C ENRIQUEZ PHYSICIAN: REFERRING PHYSICIAN: MAURA WONG MD DATE OF SERVICE: 03/08/19 Discharge Plan Patient Name: RABIA MORENO Facility: [facility]:[place] : 1950 Planned Disposition: Inpatient Rehab Anticipated Discharge Date: Discharge Date: Expected LOS: Initial Reviewer: [email or web address] Initial Review Date: 03/04/2019 Generated: 03/08/19 6:01 pm DCP- Discharge Planning Updated by [email or web address]: Muna Quintero on 03/05/19 1:[address] Patient Name: RABIA MORENO Admission Status: ER Accout number: [id number] Admission Date: 03-02-2019 : 1950 Admission Diagnosis:DISPLACED BIMALLEOLAR FRACTURE OF LEFT LOWER LEG, INIT Attending: MAURA VILLANUEVA Current LOS: 3 Anticipated DC Date: Planned Disposition: Inpatient Rehab Primary Insurance: [facility] MEDICARE SOLUTIONS Discharge Planning Comments: CM met with patient to complete initial dc planning assessment. CM educated patient on the CM role and verbal consent given by patient to complete assessment. Patient lives at home by herself where she was independent with her care. At discharge patient would like to go to inpatient rehab at [facility] and feels this is a safest discharge. CM discussed availability of home health, rehab services, and medical equipment. 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 I discussed that she has managed medicare and it will have to be approved for inpatient rehab. She asked about a walking boot or shoe for her good foot. CM will continue to follow and will assist as needed with dc plans/needs. Remote Coders: Muna Quintero DCP- Discharge Planning Updated by [id number]: Molly Hernandez on 03/04/19 3:[address] Patient Name: RABIA MORENO Admission Status: ER Accout number: [id number] Admission Date: 03-02-2019 : 1950 Admission Diagnosis: Attending: MAURA VILLANUEVA Current LOS: 2 Anticipated DC Date: Planned Disposition: Primary Insurance: [employer] MEDICARE SOLUTIONS Discharge Planning Comments: CM SPOKE WITH PATIENT PER REQUEST. STATES SHE WOULD LIKE INPT REHAB IF POSSIBLE. I TOLD PATIENT I WOULD MAKE SURE CONSULTS WERE IN BECAUSE REHAB WOULD NEED THOSE. CM WILL GET BACK WITH HER WHEN EVALS ARE DONE. Remote Coders: oMlly Hernandez DCPIA - Discharge Planning Initial Assessment Updated by [email or web address]: Muna Quintero on 03/05/19 1:57 pm * Is the patient Alert and Oriented? Yes * How many steps to enter\exit or inside your home? * PCP YADY DESIR * Pharmacy [facility] * Preadmission Environment Home Alone * ADLs Independent * Equipment Cane CPAP * List name and contact numbers for known caregivers / representatives who currently or will assist patient after discharge: GARCIA CELESTIN [phone] * Verbal permission to speak to the caregivers and representatives has been obtained from the patient. N/A * Community resources currently utilized None * Additional services required to return to the preadmission environment? Yes * Can the patient safely return to the preadmission environment? No * Has this patient been hospitalized within the prior 30 days at any hospital? No External Providers External Provider: [facility] Next Contact Date: Service Request Date: Service Type: Resolution: Reviewer: Comments: Last DP export: 03/05/19 1:09 p Patient Name: RABIA MORENO Page [id number] at 1702 All edits/amendments must be made on the electronic document DICTATION DATE: 03/08/191700 HELICOPTER UTILITY AIRCREWMAN: RITA 03/08/191700 RPT#: [id number] DC DATE: STATUS: ADM IN [facility] [address] [place] [address] END OF REPORT
--- NOTE | 2019-03-08 17:09 | MORECARE ---
CASE MANAGEMENT DISCHARGE SUMMARY PATIENT: RABIA MORENO UNIT: [id number] ADM DATE: 03/02/19 AGE: 68 : 52 SEX: F ROOM/BED: D.2212 AUTHOR: MARIA C ENRIQUEZ PHYSICIAN: REFERRING PHYSICIAN: MAURA WONG MD DATE OF SERVICE: 03/08/19 Discharge Plan Patient Name: RABIA MORENO Facility: [facility]:[place] : 1950 Planned Disposition: Inpatient Rehab Anticipated Discharge Date: Discharge Date: Expected LOS: Initial Reviewer: [email or web address] Initial Review Date: 03/04/2019 Generated: 03/08/19 6:09 pm Comments DCP- Discharge Planning Updated by [email or web address]: Muna Quintero on 03/08/19 4:[address] INPATIENT REHAB RECEIVED A DENIAL, REFERRAL SENT TO [facility]. CHERRI DUMONT NOTIFIED DCP- Discharge Planning Updated by [email or web address]: Muna Quintero on 03/05/19 1:[address] Patient Name: RABIA MORENO Admission Status: ER Accout number: [id number] Admission Date: 03-02-2019 : 1950 Admission Diagnosis:DISPLACED BIMALLEOLAR FRACTURE OF LEFT LOWER LEG, INIT Attending: MAURA VILLANUEVA Current LOS: 3 Anticipated DC Date: Planned Disposition: Inpatient Rehab Primary Insurance: [facility] MEDICARE SOLUTIONS Discharge Planning Comments: CM met with patient to complete initial dc planning assessment. CM educated patient on the CM role and verbal consent given by patient to complete assessment. Patient lives at home by herself where she was independent with her care. At discharge patient would like to go to inpatient rehab at [facility] and feels this is a safest discharge. CM discussed availability of home health, rehab services, and medical equipment. 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 I discussed that she has managed medicare and it will have to be approved for inpatient rehab. She asked about a walking boot or shoe for her good foot. CM will continue to follow and will assist as needed with dc plans/needs. Design Architect: Muna Quintero DCP- Discharge Planning Updated by [email or web address]: Mollysteve Hernandez on 03/04/19 3:[address] Patient Name: RABIA MORENO Admission Status: ER Accout number: [id number] Admission Date: 03-02-2019 : 1950 Admission Diagnosis: Attending: MAURA VILLANUEVA Current LOS: 2 Anticipated DC Date: Planned Disposition: Primary Insurance: [facility] MEDICARE SOLUTIONS Discharge Planning Comments: CM SPOKE WITH PATIENT PER REQUEST. STATES SHE WOULD LIKE INPT REHAB IF POSSIBLE. I TOLD PATIENT I WOULD MAKE SURE CONSULTS WERE IN BECAUSE REHAB WOULD NEED THOSE. CM WILL GET BACK WITH HER WHEN EVALS ARE DONE. Design Architect: Molly Mary DCPIA - Discharge Planning Initial Assessment Updated by [email or web address]: Muna Quintero on 03/05/19 1:57 pm * Is the patient Alert and Oriented? Yes * How many steps to enter\exit or inside your home? * PCP YADY DESIR * Pharmacy [facility] * Preadmission Environment Home Alone * ADLs Independent * Equipment Cane CPAP * List name and contact numbers for known caregivers / representatives who currently or will assist patient after discharge: GARCIA CELESTIN [phone] * Verbal permission to speak to the caregivers and representatives has been obtained from the patient. N/A * Community resources currently utilized None * Additional services required to return to the preadmission environment? Yes * Can the patient safely return to the preadmission environment? No * Has this patient been hospitalized within the prior 30 days at any hospital? No Last DP export: 03/08/19 4:02 p Patient Name: RABIA MORENO Page 87241 at 1709 All edits/amendments must be made on the electronic document DICTATION DATE: 03/08/191708 HORTICULTURAL SERVICES SUPERVISOR: RITA 03/08/191708 RPT#: [id number] DC DATE: STATUS: ADM IN [facility] [address] [place] [address] END OF REPORT
[2019-03-08 20:00] VITALS: BP 182/68
--- NOTE | 2019-03-08 23:56 | NUR ---
PT RESTING IN BED. EYES CLOSED. NO SIGNS OF DISTRESS. BREATHING EVEN AND UNLABORED. IV SITE RT FA DRESSING CLEAN DRY AND INTACT. NO SIGNS OF DISTRESS. RT KNEE SCABS/SORES. LT LEG CAST. WILL CONTINUE PLAN OF CARE. CALL LIGHT IN REACH. BED LOWERED AND LOCKED. BED RAILS UPX2.
[2019-03-09] VITALS: BP 132/56
--- NOTE | 2019-03-09 03:00 | NUR ---
I have reviewed this patient and I concur with the Shift Assessment completed by the Licensed Practical Nurse today this shift.
[2019-03-09 04:00] VITALS: BP 139/54
[2019-03-09 06:30] LABS: BASOPHILS 0.4 % (0-2); EOSINOPHILS 7.4 % (0-7); HEMATOCRIT 34.9 % (36.0-48.0); HEMOGLOBIN 10.9 g/dL (12-16); IMMATURE GRANULOCYTES 0.6 % (0-5); LYMPHOCYTES 28.2 % (15-50); MCH 28.2 pg (26.0-34.0); MCHC 31.2 g/dL (31.0-37.0); MCV 90.2 fL (80.0-100.0); MEAN PLATELET VOLUME 9.6 fL (7.4-10.4); MONOCYTES 6.7 % (2-11); NEUTROPHILS 56.7 % (40-80); PLATELET COUNT 250 10x3/uL (130-400); RBC 3.87 10x6/uL (4.00-5.40); RDW 13.6 % (11.5-14.5); WBC 7.9 10x3/uL (4.8-10.8)
[2019-03-09 06:38] LABS: ANION GAP 12.4 mmol/L (8-16); CARBON DIOXIDE 28.6 mmol/L (21.0-32.0); CREATININE - SERUM 1.2 mg/dL (0.6-1.3)
--- NOTE | 2019-03-09 07:30 | NUR ---
REC'D IN BED WITH EYES CLOSED EASILY TO AROUSED WHEN NAME IS CALLED. RESP EVEN AND UNLABORED WITH NO DISTRESS NOTED. CAN EXPRESS NEEDS AND WANTS. ASSESSMENT COMPLETED. C/L IN REACH AT BEDSIDE.
[2019-03-09 08:46] VITALS: BP 129/51
--- NOTE | 2019-03-09 13:30 | NUR ---
MEDICATED WITH OXY AND PHENERGAN AT THIS TIME PER PT REQUEST. C/L IN REACH AT BEDSIDE.
[2019-03-09 13:54] VITALS: BP 143/68
[2019-03-09 16:47] VITALS: BP 141/62
--- NOTE | 2019-03-09 17:42 | NUR ---
C/O LEFT ANKLE PAIN WAS MEDICATED WITH OXY AND PHENEGRAN PER ORDERS. C/L IN REACH AT BEDSIDE.
--- NOTE | 2019-03-09 18:45 | NUR ---
I have reviewed this patient and I concur with the Shift Assessment completed by the Licensed Practical Nurse today this shift.
--- NOTE | 2019-03-09 19:30 | NUR ---
PT LYING IN BED RESTING WITHOUT DISTRESS. PT BECAME ANGRY WHEN AWAKENED BY [employer] REPRESENTATIVE FOR AID. STATES "DONT YOU KNOW IM SICK AND NEED SLEEP." AGREED TO HAVE VS TAKEN. DENIES NEEDS AT THIS TIME. CL IN REACH, WILL CTM
[2019-03-09 19:46] VITALS: BP 129/54
--- NOTE | 2019-03-09 21:45 | NUR ---
PT SITTING UP ON SIDE OF BED WITHOUT DISTRESS, AOX4. FSBS 223. 12 UNITS REGULAR INSULIN AND LANTUS GIVEN. PT ORDERING PIZZA TO BE DELIVERED, DOES NOT WANT TO TAKE TRAZADONE AT THIS TIME. PAIN 5/10, GAVE PERCOCET AND PHENERGAN ORDERED. DENIES OTHER NEEDS. CL IN REACH, WILL CTM
[2019-03-10] VITALS: BP 123/51
--- NOTE | 2019-03-10 01:05 | NUR ---
PT COMPLAINS OF SLIGHT BURNING PAIN TO RIGHT GROIN, SOME REDNESS OBSERVED. WILL CTM
[2019-03-10 05:30] VITALS: BP 157/64
[2019-03-10 06:59] LABS: BASOPHILS 0.2 % (0-2); EOSINOPHILS 6.2 % (0-7); HEMATOCRIT 34.1 % (36.0-48.0); HEMOGLOBIN 10.6 g/dL (12-16); IMMATURE GRANULOCYTES 0.8 % (0-5); LYMPHOCYTES 27.1 % (15-50); MCH 28.1 pg (26.0-34.0); MCHC 31.1 g/dL (31.0-37.0); MCV 90.5 fL (80.0-100.0); MEAN PLATELET VOLUME 9.5 fL (7.4-10.4); MONOCYTES 7.3 % (2-11); NEUTROPHILS 58.4 % (40-80); PLATELET COUNT 239 10x3/uL (130-400); RBC 3.77 10x6/uL (4.00-5.40); RDW 13.5 % (11.5-14.5); WBC 8.3 10x3/uL (4.8-10.8)
[2019-03-10 07:27] LABS: ANION GAP 11.2 mmol/L (8-16); CALCIUM 8.6 mg/dL (8.5-10.1); CARBON DIOXIDE 30.1 mmol/L (21.0-32.0); CREATININE - SERUM 1.2 mg/dL (0.6-1.3); MAGNESIUM - SERUM 1.6 mg/dL (1.8-2.4); POTASSIUM - SERUM 4.3 mmol/L (3.5-5.1)
--- NOTE | 2019-03-10 07:28 | NUR ---
PT SITTING UP ON THE SIDE OF THE BEDSIDE, ALERT AND ORIENTED WITH NO S/S OF DISTRESS AT THIS TIME. BREATHING EVEN AND NONLABORED, DENIES NEEDS AT THIS TIME, WILL CONT TO MONITOR.
[2019-03-10 09:06] VITALS: BP 126/46
[2019-03-10 15:49] VITALS: BP 124/61
[2019-03-10 20:00] VITALS: BP 112/53
[2019-03-11] VITALS: BP 130/62
[2019-03-11 04:00] VITALS: BP 145/59
--- NOTE | 2019-03-11 05:30 | NUR ---
I have reviewed this patient and I concur with the Shift Assessment completed by the Licensed Practical Nurse today this shift.
[2019-03-11 06:12] LABS: BASOPHILS 0.4 % (0-2); EOSINOPHILS 5.7 % (0-7); HEMATOCRIT 35.3 % (36.0-48.0); IMMATURE GRANULOCYTES 0.4 % (0-5); LYMPHOCYTES 26.3 % (15-50); MCH 28.1 pg (26.0-34.0); MCHC 31.2 g/dL (31.0-37.0); MCV 90.3 fL (80.0-100.0); MEAN PLATELET VOLUME 9.6 fL (7.4-10.4); MONOCYTES 9.9 % (2-11); NEUTROPHILS 57.3 % (40-80); PLATELET COUNT 199 10x3/uL (130-400); RBC 3.91 10x6/uL (4.00-5.40); RDW 13.4 % (11.5-14.5)
[2019-03-11 06:30] LABS: ANION GAP 13.7 mmol/L (8-16); CALCIUM 9.3 mg/dL (8.5-10.1); CREATININE - SERUM 1.2 mg/dL (0.6-1.3); MAGNESIUM - SERUM 1.5 mg/dL (1.8-2.4); POTASSIUM - SERUM 4.7 mmol/L (3.5-5.1)
[2019-03-11 08:29] VITALS: BP 105/41
--- NOTE | 2019-03-11 10:19 | NUR ---
OT NOTE: PT WITH C/O PAIN IN L LE; PERFORMED BED MOB WITH MIN ASSIST WITH USE OF BED RAIL. APPLIED BOOT TO R FOOT. PT DID NOT WANT TO USE BOOT SHE SAID THAT SHE COULD NOT PIVOT WITH IT. EXPLAINED THAT IT IS IN PHYSICIAN ORDERS AND PT COMPLIED. TRANSFER TO TOILET WITH WALKER, GAIT BELT, AND MIN ASSIST. PT EASILY FRUSTRATED SHE DOES NOT WANT ASSIST WITH TRANSFER. EDUCATION TO IMPORTANCE OF NWB THROUGH L LE. MOD ASSIST WITH TOILET HYGIENE. MAX ASSIST TO JOSETTE BOOTS AND B SOCKS. MIN ASSIST WTIH BATHING LES AND SET UP WITH UPPER BODY BATHING. GROOMING WITH SET UP. ATTEMPTED SEVERAL SIT TO STANDS WITH WALKER FOR UE STRENGTHENING. PT WITH SIGNIFICANT DIFFICULTY USING BOOT, SHE IS TOO WEAK TO PUT MOST OF WT THROUGH UES WITH WALKER. RECOMMEND REHAB. GLORIA MUNROE, OTR/L
[2019-03-11 12:51] VITALS: BP 128/70
[2019-03-11 16:42] VITALS: BP 143/71
--- NOTE | 2019-03-11 17:21 | MORECARE ---
CASE MANAGEMENT DISCHARGE SUMMARY PATIENT: RABIA MORENO UNIT: [id number] ADM DATE: 03/02/19 AGE: 68 : 52 SEX: F ROOM/BED: D.2212 AUTHOR: MARIA C ENRIQUEZ PHYSICIAN: REFERRING PHYSICIAN: MAURA WONG MD DATE OF SERVICE: 03/11/19 Discharge Plan Patient Name: RABIA MORENO Facility: [facility]:[place] : 1950 Planned Disposition: Inpatient Rehab Anticipated Discharge Date: Discharge Date: Expected LOS: Initial Reviewer: [email or web address] Initial Review Date: 03/04/2019 Generated: 03/11/19 6:21 pm DCP- Discharge Planning Updated by [email or web address]: Muna Quintero on 03/08/19 4:[address] INPATIENT REHAB RECEIVED A DENIAL, REFERRAL SENT TO [facility]. CHERRI DUMONT NOTIFIED DCP- Discharge Planning Updated by [email or web address]: Muna Quintero on 03/05/19 1:[address] Patient Name: RABIA MORENO Admission Status: ER Accout number: [id number] Admission Date: 03-02-2019 : 1950 Admission Diagnosis:DISPLACED BIMALLEOLAR FRACTURE OF LEFT LOWER LEG, INIT Attending: MAURA VILLANUEVA Current LOS: 3 Anticipated DC Date: Planned Disposition: Inpatient Rehab Primary Insurance: [facility] MEDICARE SOLUTIONS Discharge Planning Comments: CM met with patient to complete initial dc planning assessment. CM educated patient on the CM role and verbal consent given by patient to complete assessment. Patient lives at home by herself where she was independent with her care. At discharge patient would like to go to inpatient rehab at [facility] and feels this is a safest discharge. CM discussed availability of home health, rehab services, and medical equipment. 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 I discussed that she has managed medicare and it will have to be approved for inpatient rehab. She asked about a walking boot or shoe for her good foot. CM will continue to follow and will assist as needed with dc plans/needs. Training Director: Muna Quintero DCP- Discharge Planning Updated by [email or web address]: Mollysteve Hernandez on 03/04/19 3:[address] Patient Name: RABIA MORENO Admission Status: ER Accout number: [id number] Admission Date: 03-02-2019 : 1950 Admission Diagnosis: Attending: MAURA VILLANUEVA Current LOS: 2 Anticipated DC Date: Planned Disposition: Primary Insurance: [facility] MEDICARE SOLUTIONS Discharge Planning Comments: CM SPOKE WITH PATIENT PER REQUEST. STATES SHE WOULD LIKE INPT REHAB IF POSSIBLE. I TOLD PATIENT I WOULD MAKE SURE CONSULTS WERE IN BECAUSE REHAB WOULD NEED THOSE. CM WILL GET BACK WITH HER WHEN EVALS ARE DONE. Training Director: Molly Mary DCPIA - Discharge Planning Initial Assessment Updated by [id number]: Muna Quintero on 03/05/19 1:57 pm * Is the patient Alert and Oriented? Yes * How many steps to enter\exit or inside your home? * PCP YADY DESIR * Pharmacy [facility] * Preadmission Environment Home Alone * ADLs Independent * Equipment Cane CPAP * List name and contact numbers for known caregivers / representatives who currently or will assist patient after discharge: GARCIA CELESTIN [phone] * Verbal permission to speak to the caregivers and representatives has been obtained from the patient. N/A * Community resources currently utilized None * Additional services required to return to the preadmission environment? Yes * Can the patient safely return to the preadmission environment? No * Has this patient been hospitalized within the prior 30 days at any hospital? No Last DP export: 03/08/19 4:09 p Patient Name: RABIA MORENO Page [phone] at 1721 All edits/amendments must be made on the electronic document DICTATION DATE: 03/11/19 172 DIANETIC COUNSELOR: RITA 03/11/19 172 RPT#: [id number] DC DATE: STATUS: ADM IN [facility] [address] [place] [address] END OF REPORT
[2019-03-11 20:00] VITALS: BP 144/66
--- NOTE | 2019-03-11 20:00 | NUR ---
ALERT AND ORIENTED X4. LYING IN BED. REQUESTING PAIN MED. RATES PAIN IN LT ANKLE 9. MEDICATED WITH PERCOCET FOR PAIN AND PHENERGAN FOR NAUSEA. RESP EVEN AND NONLABORED. NAVID WRAP NOTED TO LT ANKLE. 3+ EDEMA NOTED TO LLE. ABD DISTENDED AND FIRM. BS ARE HYPOACTIVE. STATES SHE HASNT HAD A BM SINCE 02-22-19. STATES SHE IS PASSING GAS. SALINE LOCK NOTED TO RT FOREARM. AMB WITH WALKER TO BSC. SR ELEVATED X2. CL IN REACH.
[2019-03-12] VITALS: BP 135/66
--- NOTE | 2019-03-12 01:08 | NUR ---
REQUESTING PAIN MED. RATES PAIN IN LT ANKLE 9. MEDICATED WITH PERCOCET AND PHENERGAN ORDERED. CL IN REACH.
[2019-03-12 04:00] VITALS: BP 124/61
[2019-03-12 06:04] LABS: BASOPHILS 0.4 % (0-2); EOSINOPHILS 5.3 % (0-7); HEMATOCRIT 34.9 % (36.0-48.0); IMMATURE GRANULOCYTES 0.6 % (0-5); MCH 28.5 pg (26.0-34.0); MCHC 31.5 g/dL (31.0-37.0); MCV 90.4 fL (80.0-100.0); MEAN PLATELET VOLUME 9.7 fL (7.4-10.4); MONOCYTES 7.9 % (2-11); NEUTROPHILS 57.8 % (40-80); RBC 3.86 10x6/uL (4.00-5.40); RDW 13.5 % (11.5-14.5)
[2019-03-12 06:09] LABS: PLATELET COUNT 239 10x3/uL (130-400)
[2019-03-12 06:39] LABS: CARBON DIOXIDE 27.8 mmol/L (21.0-32.0); CREATININE - SERUM 1.3 mg/dL (0.6-1.3); MAGNESIUM - SERUM 1.7 mg/dL (1.8-2.4); POTASSIUM - SERUM 4.8 mmol/L (3.5-5.1)
--- NOTE | 2019-03-12 08:10 | NUR ---
PT RESTING IN BED. RESP EVEN AND UNLABORED. NO IV ACCESS AT THIS TIME. RATES PAIN 7/10 AT THIS TIME. EDUCATED PT REGARDING NEXT TIME PAIN MEDICATION CAN BE ADMINISTERED PER MD ORDERS. PT VOICES UNDERSTANDING. PT REQUEST NAVID WRAP FOR RIGHT LOWER EXTREMITY. DISCUSSED NEED FOR MD ORDERS TO PLACE WRAP TO EXTREMITY. DRESSING C/D/I TO LEFT LOWER EXTREMITY. DENIES FURTHER NEEDS AT THIS TIME. CL WITHIN REACH. ENCOURAGED TO CALL WITH NEEDS. CONTINUE POC
[2019-03-12 08:15] VITALS: BP 167/81
[2019-03-12 09:09] LABS: HEPATITIS C ANTIBODY <0.1 S/CO RAT (0.0-0.9)
[2019-03-12 12:45] VITALS: BP 119/53
--- NOTE | 2019-03-12 13:47 | NUR ---
OT NOTE: PT PERFORMED BED MOB WITH VERY MINIMAL ASSIST. EOB SITTING WITH GOOD DYNAMIC BALANCE. ABLE TO JOSETTE UNDERWEAR WITH SET UP AND MIN ASSIST FOR BALANCE FOR STANDING TO PERFORM CLOTHING MGMT. SIMPLE GROOMING WITH SET UP; TRANSFERRED TO CHAIR WITH MIN ASSIST. PT STATED FEELING FRUSTRATED BECAUSE SHE IS UNABLE TO DO MORE THAN TRANSFER. CUES REQUIRED FOR NWB. GLORIA MUNROE, OTR/L
--- NOTE | 2019-03-12 14:46 | NUR ---
OT NOTE: PT SITTING ON EOB. REQUESTING UE STRENGTHENING EXS WHILE IN BED. HAD PT PERFORM 6 SIT TO STANDS WITH WALKER.. PTS ARMS WERE SHAKING AFTER THIS. PT ABLE TO STAND APPROX 45 SECS FOR EACH REP. PRACTICED BED MOB USING BED RAILS AND TRAPEZE. EDUCATED PT ON TRAPEZE EXS WHILE IN BED TO IMPROVE UE STRENGTH. INSTRUCTED PT ON SAFETY AWARENESS ISSUES, SHE HAD JUST AMB FROM TOILET TO BED, APPROX 4 FT, PRIOR TO THERAPIST COMING INTO ROOM. EXPLAINED POSSIBILITY OF FALL AND DANGER PRESENTED WITH PERFORMING WITHOUT ASSIST. PT STATES THAT R FOOT REMAINS SORE WHEN WT BEARING THROUGH IT, HOWEVER, DOES NOT WANT TO USE BOOT IT IS TOO HEAVY FOR HER WHEN PERFORMING TRANSFER. RECOMMEND IP REHAB. GLORIA MUNROE, OTR/L
--- NOTE | 2019-03-12 15:57 | NUR ---
Nutrition Follow-up: Diet: Diabetic PO intake: none recorded since 03/07/19, previously 100%. Pt reports appetite is a little reduced d/t no BM x 2 weeks now. States that she has been given miralax and prune juice several times but has still not had a BM. Meds noted: dolcolax, colace, miralax, lantus, SSI. Labs noted: Glu 310H, GFR 43L. Skin assessment reviwed. Continue diabetic diet. Consider increase in bowel regimen vs. enema? prune juice may be contributing to increased blood sugars. RD Following
[2019-03-12 16:02] VITALS: BP 120/70
--- NOTE | 2019-03-12 20:40 | NUR ---
MEDICATED WITH PERCOCET AND PHENERGAN FOR C/O PAIN AND NAUSEA. PT ON THE PHONE ORDERING LESLY VELAZQUEZ. NONCOMPLIANT DIABETIC. ABD IS DISTENDED AND FIRM, BS HYPOACTIVE. STATES SHE IS PASSING GAS BUT HASNT HAD A BM. AMB WITH WALKER TO BSC. CL IN REACH.
[2019-03-12 22:56] VITALS: BP 135/75
--- NOTE | 2019-03-12 23:45 | NUR ---
REQUESTED ZANAFLEX AT THIS TIME. CL IN REACH. NO DISTRESS.
--- NOTE | 2019-03-13 01:30 | NUR ---
MEDICATED WITH PERCOCET AND PHENERGAN FOR C/O PAIN IN LT ANKLE AND NAUSEA. TALKATIVE. NO DISTRESS. CL IN REACH.
[2019-03-13 01:40] VITALS: BP 116/64
[2019-03-13 06:39] LABS: ANION GAP 11.5 mmol/L (8-16); CALCIUM 8.3 mg/dL (8.5-10.1); CREATININE - SERUM 1.2 mg/dL (0.6-1.3); MAGNESIUM - SERUM 1.7 mg/dL (1.8-2.4); POTASSIUM - SERUM 4.5 mmol/L (3.5-5.1)
[2019-03-13 07:00] LABS: BASOPHILS 0.3 % (0-2); EOSINOPHILS 4.6 % (0-7); HEMATOCRIT 31.3 % (36.0-48.0); HEMOGLOBIN 9.5 g/dL (12-16); IMMATURE GRANULOCYTES 0.6 % (0-5); LYMPHOCYTES 29.5 % (15-50); MCH 27.8 pg (26.0-34.0); MCHC 30.4 g/dL (31.0-37.0); MCV 91.5 fL (80.0-100.0); MEAN PLATELET VOLUME 10.1 fL (7.4-10.4); MONOCYTES 8.8 % (2-11); NEUTROPHILS 56.2 % (40-80); RBC 3.42 10x6/uL (4.00-5.40); RDW 13.5 % (11.5-14.5); WBC 6.4 10x3/uL (4.8-10.8)
[2019-03-13 07:21] LABS: PLATELET COUNT 187 10x3/uL (130-400)
--- NOTE | 2019-03-13 07:56 | NUR ---
PT RESTING IN BED. AROUSED BY VERBAL STIMULI. NO S/S OF ACUTE DISTRESS. CL IN PLACE.
[2019-03-13 08:45] VITALS: BP 134/57
[2019-03-13 12:51] VITALS: BP 130/82
--- NOTE | 2019-03-13 15:00 | NUR ---
PT STATES," I HAVE NOT HAD A BM SINCE ADMISSION ON 03/01" EXPLAINED TO PT THAT WAS NOT NORMAL AND PT SHOULD BE GOING MORE FREQUENT. EXPLAINED CONSTIPATION CAN BE CAUSED BY THE PAIN MEDICATION. SPOKE WITH Anastasia DASILVA WHO GAVE VO 20 MG DULCOLAX SUPP X1 IF NO RESULTS REPEAT IN 4 HOURS.
--- NOTE | 2019-03-13 16:40 | MORECARE ---
CASE MANAGEMENT DISCHARGE SUMMARY PATIENT: RABIA MORENO UNIT: [id number] ADM DATE: 03/02/19 AGE: 68 : 52 SEX: F ROOM/BED: D.2212 AUTHOR: MARIA C ENRIQUEZ PHYSICIAN: REFERRING PHYSICIAN: MAURA WONG MD DATE OF SERVICE: 03/13/19 Discharge Plan Patient Name: RABIA MORENO Facility: [facility]:[place] : 1950 Planned Disposition: Inpatient Rehab Anticipated Discharge Date: Discharge Date: Expected LOS: Initial Reviewer: [email or web address] Initial Review Date: 03/04/2019 Generated: 03/13/19 5:40 pm Comments DCP- Discharge Planning Updated by [id number]: Molly Hernandez on 03/13/19 3:[address] Patient Name: RABIA MORENO Admission Status: ER Accout number: [id number] Admission Date: 03-02-2019 : 1950 Admission Diagnosis:DISPLACED BIMALLEOLAR FRACTURE OF LEFT LOWER LEG, INIT Attending: MAURA VILLANUEVA Current LOS: 11 Anticipated DC Date: Planned Disposition: Inpatient Rehab Primary Insurance: [facility] MEDICARE SOLUTIONS Discharge Planning Comments: I RECEIVED A VM FROM [facility] WITH [facility] 1045 WITH AN APPROVAL FOR SNF THIS , AUTH [id number]. I RELAYED THE MESSAGE TO CHERRI AT [facility]. SHE IS STILL WORKING ON THIS OF 1632. Aquarium Tank Attendant: Molly Hernandez DCP- Discharge Planning Updated by [email or web address]: Muna Quintero on 03/08/19 4:[address] INPATIENT REHAB RECEIVED A DENIAL, REFERRAL SENT TO [facility]. CHERRI DUMONT NOTIFIED DCP- Discharge Planning Updated by [email or web address]: Muna Quintero on 03/05/19 1:[address] Patient Name: RABIA MORENO Admission Status: ER Accout number: [id number] Admission Date: 03-02-2019 : 1950 Admission Diagnosis:DISPLACED BIMALLEOLAR FRACTURE OF LEFT LOWER LEG, INIT Attending: MAURA VILLANUEVA Current LOS: 3 Anticipated DC Date: Planned Disposition: Inpatient Rehab Primary Insurance: [facility] MEDICARE SOLUTIONS Discharge Planning Comments: CM met with patient to complete initial dc planning assessment. CM educated patient on the CM role and verbal consent given by patient to complete assessment. Patient lives at home by herself where she was independent with her care. At discharge patient would like to go to inpatient rehab at [facility] and feels this is a safest discharge. CM discussed availability of home health, rehab services, and medical equipment. 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 I discussed that she has managed medicare and it will have to be approved for inpatient rehab. She asked about a walking boot or shoe for her good foot. CM will continue to follow and will assist as needed with dc plans/needs. Aquarium Tank Attendant: Muna Quintero DCP- Discharge Planning Updated by [email or web address]: Molly Hernandez on 03/04/19 3:[address] Patient Name: RABIA MORENO Admission Status: ER Accout number: [id number] Admission Date: 03-02-2019 : 1950 Admission Diagnosis: Attending: MAURA VILLANUEVA Current LOS: 2 Anticipated DC Date: Planned Disposition: Primary Insurance: [facility] MEDICARE SOLUTIONS Discharge Planning Comments: CM SPOKE WITH PATIENT PER REQUEST. STATES SHE WOULD LIKE INPT REHAB IF POSSIBLE. I TOLD PATIENT I WOULD MAKE SURE CONSULTS WERE IN BECAUSE REHAB WOULD NEED THOSE. CM WILL GET BACK WITH HER WHEN EVALS ARE DONE. Aquarium Tank Attendant: Molly Hernandez DCPIA - Discharge Planning Initial Assessment Updated by [email or web address]: Muna Quintero on 03/05/19 1:57 pm * Is the patient Alert and Oriented? Yes * How many steps to enter\exit or inside your home? * PCP YADY DESIR * Pharmacy [facility] * Preadmission Environment Home Alone * ADLs Independent * Equipment Cane CPAP * List name and contact numbers for known caregivers / representatives who currently or will assist patient after discharge: GARCIA CELESTIN [phone] * Verbal permission to speak to the caregivers and representatives has been obtained from the patient. N/A * Community resources currently utilized None * Additional services required to return to the preadmission environment? Yes * Can the patient safely return to the preadmission environment? No * Has this patient been hospitalized within the prior 30 days at any hospital? No Last DP export: 03/11/19 4:21 p Patient Name: RABIA MORENO Page 13928 at 1640 All edits/amendments must be made on the electronic document DICTATION DATE: 03/13/19 1640 SPORTS ATHLETIC TRAINER: RITA 03/13/19 1640 RPT#: [id number] DC DATE: STATUS: ADM IN [facility] [address] [place] [address] END OF REPORT
--- NOTE | 2019-03-13 17:21 | NUR ---
1640 PT CALLED ME IN TO LOOK AT STOOL. 3 HARD ROUND WHITE/BROWN/ MUCOUSY STOOL NOTED. PT " I AM HAVING RUQ PAIN AND PAIN IN MY R SHOULDER. I HAD INCREASE LIVER ENZYMES AND 2 POSITIVE LYMPHNODES AT PREVIOUS MD APPT." CALLED [facility] AND RELAYED INFO. EXPLAINED KUB DONE AND IT SHOWED CONSTIPATION. TO FOR CMP IN AM AND 150MG OF MAG CITRATE.
[2019-03-13 17:26] VITALS: BP 154/58
--- NOTE | 2019-03-13 17:32 | NUR ---
OT NOTE: PT REQUIRED VERBAL CUES FOR INCREASED SAFETY. PT EDUCATED ON THE USE OF CALL LIGHT. PT EDUCATED THAT SHE NEEDS ASSISTANCE FOR TRANSFER TO DECREASE FALL RISK. BERGER NOTIFIED NURSING STAFF THAT PT NEEDS ASSISTANCE WITH TRANSFER TO PREVENT FALL. PT COMPLETED BED MOB WITH SBA. PT COMPLETED TRANSFER FROM BED TO BSC WITH SBA/CGA. PT REQUIRED MIN A FOR GARMENT MANAGEMENT . PT COMPLETED HYGIENE WITH SET UP. THANK YOU,CELINE HEBERT
--- NOTE | 2019-03-13 18:36 | NUR ---
PT REFUSING MAG CITRATE. "CAN YOU SEE IF WE CAN DO MILK OF MAGNESIA?" NO S/S OF ACUTE DISTRESS. CL IN PLACE.
--- NOTE | 2019-03-13 18:45 | NUR ---
TO FROM DR MCCONNELL 30ML MILK OF MAGNESIA X 1 NOW.
--- NOTE | 2019-03-13 21:00 | NUR ---
A&O X 4. REPORTS PAIN OF 7/10 TP LLE. REPORTS ONE GOOD SIZED FORMED BM. REQUESTS PAIN AND NAUSEA MEDICATION. DENIES FURTHER NEEDS.
--- NOTE | 2019-03-14 02:20 | NUR ---
I have reviewed this patient and I concur with the Shift Assessment completed by the Licensed Practical Nurse today this shift.
[2019-03-14 04:00] VITALS: BP 104/54
[2019-03-14 06:30] LABS: BASOPHILS 0.4 % (0-2); EOSINOPHILS 3.7 % (0-7); HEMATOCRIT 35.1 % (36.0-48.0); HEMOGLOBIN 10.9 g/dL (12-16); IMMATURE GRANULOCYTES 0.4 % (0-5); LYMPHOCYTES 35.3 % (15-50); MCH 28.2 pg (26.0-34.0); MCHC 31.1 g/dL (31.0-37.0); MCV 90.7 fL (80.0-100.0); MEAN PLATELET VOLUME 9.6 fL (7.4-10.4); MONOCYTES 9.1 % (2-11); NEUTROPHILS 51.1 % (40-80); PLATELET COUNT 218 10x3/uL (130-400); RBC 3.87 10x6/uL (4.00-5.40); RDW 13.4 % (11.5-14.5)
[2019-03-14 06:38] LABS: WBC 9.4 10x3/uL (4.8-10.8)
[2019-03-14 06:51] LABS: ANION GAP 13.4 mmol/L (8-16); CREATININE - SERUM 1.1 mg/dL (0.6-1.3); MAGNESIUM - SERUM 1.8 mg/dL (1.8-2.4); POTASSIUM - SERUM 4.4 mmol/L (3.5-5.1)
--- NOTE | 2019-03-14 07:45 | NUR ---
PATIENT LAYING ON BACK. REQUESTS HER PAIN MED, ZANAFLEX, AND PHENERGAN SOON AVAILABLE. CO SPASMS IN LEFT LEG. OBSERVED LEG SHAKING. CL IN REACH. NO FURTHER NEEDS AT THIS TIME.
[2019-03-14 08:59] VITALS: BP 132/56
--- NOTE | 2019-03-14 10:18 | NUR ---
PATIENT REQUESTS THAT HER BEDSIDE TABLE BE MOVED TO THE OTHER SIDE OF THE BED. THIS WAS DONE. DID NOT WANT THE HOSPITAL PHONE ON HER BED. DRANK HALF THE MIRILAX AND APPLE JUICE STATING THAT IT IS TO SWEET. CL IN REACH. WCTM
--- NOTE | 2019-03-14 11:19 | MORECARE ---
CASE MANAGEMENT DISCHARGE SUMMARY PATIENT: RABIA MORENO UNIT: [id number] ADM DATE: 03/02/19 AGE: 68 : 52 SEX: F ROOM/BED: D.2212 AUTHOR: MARIA C ENRIQUEZ PHYSICIAN: REFERRING PHYSICIAN: MAURA WONG MD DATE OF SERVICE: 03/14/19 Discharge Plan Patient Name: RABIA MORENO Facility: [facility]:[place] : 1950 Planned Disposition: Inpatient Rehab Anticipated Discharge Date: Discharge Date: Expected LOS: Initial Reviewer: [email or web address] Initial Review Date: 03/04/2019 Generated: 03/14/19 12:19 pm Comments DCP- Discharge Planning Updated by [email or web address]: Muna Quintero on 03/14/19 10:[address] Patient has been accepted to [facility], I spoke with Cherri and have faxed over clinicals. IMM served and explained to patient copy given to her. Cherri will call back with a garbage pick up man time. CM to follow and assist as needed DCP- Discharge Planning Updated by [email or web address]: Molly Hernandez on 03/13/19 3:[address] Patient Name: RABIA MORENO Admission Status: ER Accout number: [id number] Admission Date: 03-02-2019 : 1950 Admission Diagnosis:DISPLACED BIMALLEOLAR FRACTURE OF LEFT LOWER LEG, INIT Attending: MAURA VILLANUEVA Current LOS: 11 Anticipated DC Date: Planned Disposition: Inpatient Rehab Primary Insurance: [facility] [employer]UT[employer] Discharge Planning Comments: I RECEIVED A VM FROM [facility] WITH CAT 1045 WITH AN APPROVAL FOR SNF THIS , AUTH [id number]. I RELAYED THE MESSAGE TO CHERRI AT [facility]. SHE IS STILL WORKING ON THIS OF 1632. Bit Sander: Molly Hernandez DCP- Discharge Planning Updated by [id number]: Muna Quintero on 03/08/19 4:[address] INPATIENT REHAB RECEIVED A DENIAL, REFERRAL SENT TO [facility]. CHERRI DUMONT NOTIFIED DCP- Discharge Planning Updated by [email or web address]: Muna Quintero on 03/05/19 1:[address] Patient Name: RABIA MORENO Admission Status: ER Accout number: [id number] Admission Date: 03-02-2019 : 1950 Admission Diagnosis:DISPLACED BIMALLEOLAR FRACTURE OF LEFT LOWER LEG, INIT Attending: MAURA VILLANUEVA Current LOS: 3 Anticipated DC Date: Planned Disposition: Inpatient Rehab Primary Insurance: [facility] [employer] SOLUTIONS Discharge Planning Comments: CM met with patient to complete initial dc planning assessment. CM educated patient on the CM role and verbal consent given by patient to complete assessment. Patient lives at home by herself where she was independent with her care. At discharge patient would like to go to inpatient rehab at [facility] and feels this is a safest discharge. CM discussed availability of home health, rehab services, and medical equipment. She has a cane and a CPAP (she owns) Dr Celestin will be her paratransit driver home. I discussed that she has managed medicare and it will have to be approved for inpatient rehab. She asked about a walking boot or shoe for her good foot. CM will continue to follow and will assist as needed with dc plans/needs. Bit Sander: Muna Quintero DCP- Discharge Planning Updated by [id number]: Molly Hernandez on 03/04/19 3:[address] Patient Name: RABIA MORENO Admission Status: ER Accout number: [id number] Admission Date: 03-02-2019 : 1950 Admission Diagnosis: Attending: MAURA VILLANUEVA Current LOS: 2 Anticipated DC Date: Planned Disposition: Primary Insurance: [facility] [employer] SOLUTIONS Discharge Planning Comments: CM SPOKE WITH PATIENT PER REQUEST. STATES SHE WOULD LIKE INPT REHAB IF POSSIBLE. I TOLD PATIENT I WOULD MAKE SURE CONSULTS WERE IN BECAUSE REHAB WOULD NEED THOSE. CM WILL GET BACK WITH HER WHEN EVALS ARE DONE. Bit Sander: Molly Hernandez DCPIA - Discharge Planning Initial Assessment Updated by [email or web address]: Muna Quintero on 03/05/19 1:57 pm * Is the patient Alert and Oriented? Yes * How many steps to enter\exit or inside your home? * PCP YADY DESIR * Pharmacy [facility] * Preadmission Environment Home Alone * ADLs Independent * Equipment Cane CPAP * List name and contact numbers for known caregivers / representatives who currently or will assist patient after discharge: GARCIA CELESTIN [phone] * Verbal permission to speak to the caregivers and representatives has been obtained from the patient. N/A * Community resources currently utilized None * Additional services required to return to the preadmission environment? Yes * Can the patient safely return to the preadmission environment? No * Has this patient been hospitalized within the prior 30 days at any hospital? No Coverage Notice Reviewer: [email or web address] Ara Quintero Notice Issued Date-Time: 03/14/2019 8:50 Notice Type: IM Discharge Notice Notice Delivered To: Patient Relationship to Patient: Molasses And Caramel Operator Name: Delivery Method: HAND - Hand Delivered Etelvina Days: Prior Verbal Notification: Recipient Understood Notice: Yes Recipient Signature: Yes Med Rec Note Co-signed by Attending: Coverage Notice Comment: Last DP export: 03/13/19 3:40 p Patient Name: RABIA MORENO Page 05335 at 1119 All edits/amendments must be made on the electronic document DICTATION DATE: 03/14/19 1119 DELIVERY OF SHOPPING NEWS: RITA 03/14/19 1119 RPT#: [id number] DC DATE: STATUS: ADM IN [facility] [address] [place] [address] END OF REPORT
--- NOTE | 2019-03-14 11:58 | MORECARE ---
CASE MANAGEMENT DISCHARGE SUMMARY PATIENT: RABIA MORENO UNIT: [id number] ADM DATE: 03/02/19 AGE: 68 : 52 SEX: F ROOM/BED: D.2212 AUTHOR: MARIA C ENRIQUEZ PHYSICIAN: REFERRING PHYSICIAN: MAURA WONG MD DATE OF SERVICE: 03/14/19 Discharge Plan Patient Name: RABIA MORENO Facility: [facility]:[place] : 1950 Planned Disposition: Inpatient Rehab Anticipated Discharge Date: Discharge Date: Expected LOS: Initial Reviewer: [email or web address] Initial Review Date: 03/04/2019 Generated: 03/14/19 12:58 pm Comments DCP- Discharge Planning Updated by [id number]: Muna Quintero on 03/14/19 10:[address] [facility] up attendant at 1300 DCP- Discharge Planning Updated by [email or web address]: Muna Quintero on 03/14/19 10:[address] [facility], I spoke with Cherri and have faxed over clinicals. CARLOS served and explained to patient copy given to her. Cherri will call back with a pick up attendant time. CM to follow and assist as needed DCP- Discharge Planning Updated by [email or web address]: Molly Hernandez on 03/13/19 3:[address] Patient Name: RABIA MORENO Admission Status: ER Accout number: [id number] Admission Date: 03-02-2019 : 1950 Admission Diagnosis:DISPLACED BIMALLEOLAR FRACTURE OF LEFT LOWER LEG, INIT Attending: MAURA VILLANUEVA Current LOS: 11 Anticipated DC Date: Planned Disposition: Inpatient Rehab Primary Insurance: [facility] [employer] Discharge Planning Comments: I RECEIVED A VM FROM [facility] WITH CAT 1045 WITH AN APPROVAL FOR SNF THIS , AUTH [id number]. I RELAYED THE MESSAGE TO CHERRI AT [facility]. SHE IS STILL WORKING ON THIS OF 1632. Bottoming Machine Operator: Molly Hernandez DCP- Discharge Planning Updated by [email or web address]: Muna Quintero on 03/08/19 4:[address] INPATIENT REHAB RECEIVED A DENIAL, REFERRAL SENT TO [facility]. CHERRI DUMONT NOTIFIED DCP- Discharge Planning Updated by [email or web address]: Muna Leon on 03/05/19 1:[address] Patient Name: RABIA MORENO Admission Status: ER Accout number: [id number] Admission Date: 03-02-2019 : 1950 Admission Diagnosis:DISPLACED BIMALLEOLAR FRACTURE OF LEFT LOWER LEG, INIT Attending: MAURA VILLANUEVA Current LOS: 3 Anticipated DC Date: Planned Disposition: Inpatient Rehab Primary Insurance: [facility] [employer] Discharge Planning Comments: CM met with patient to complete initial dc planning assessment. CM educated patient on the CM role and verbal consent given by patient to complete assessment. Patient lives at home by herself where she was independent with her care. At discharge patient would like to go to inpatient rehab at [facility] and feels this is a safest discharge. CM discussed availability of home health, rehab services, and medical equipment. She has a cane and a CPAP (she owns) Dr Celestin will be her wheelchair van driver home. I discussed that she has managed medicare and it will have to be approved for inpatient rehab. She asked about a walking boot or shoe for her good foot. CM will continue to follow and will assist as needed with dc plans/needs. Bottoming Machine Operator: Muna Quintero DCP- Discharge Planning Updated by [email or web address]: Molly Hernandez on 03/04/19 3:[address] Patient Name: RABIA MOERNO Admission Status: ER Accout number: [id number] Admission Date: 03-02-2019 : 1950 Admission Diagnosis: Attending: MAURA VILLANUEVA Current LOS: 2 Anticipated DC Date: Planned Disposition: Primary Insurance: [facility] [employer] Discharge Planning Comments: CM SPOKE WITH PATIENT PER REQUEST. STATES SHE WOULD LIKE INPT REHAB IF POSSIBLE. I TOLD PATIENT I WOULD MAKE SURE CONSULTS WERE IN BECAUSE REHAB WOULD NEED THOSE. CM WILL GET BACK WITH HER WHEN EVALS ARE DONE. Bottoming Machine Operator: Molly Hernandez DCPIA - Discharge Planning Initial Assessment Updated by [email or web address]: Muna Quintero on 03/05/19 1:57 pm * Is the patient Alert and Oriented? Yes * How many steps to enter\exit or inside your home? * PCP YADY DESIR * Pharmacy [facility] * Preadmission Environment Home Alone * ADLs Independent * Equipment Cane CPAP * List name and contact numbers for known caregivers / representatives who currently or will assist patient after discharge: GARCIA CELESTIN [phone] * Verbal permission to speak to the caregivers and representatives has been obtained from the patient. N/A * Community resources currently utilized None * Additional services required to return to the preadmission environment? Yes * Can the patient safely return to the preadmission environment? No * Has this patient been hospitalized within the prior 30 days at any hospital? No Coverage Notice Reviewer: [id number] Ara Quintero Notice Issued Date-Time: 03/14/2019 8:50 Notice Type: IM Discharge Notice Notice Delivered To: Patient Relationship to Patient: Bulldogger Name: Delivery Method: HAND - Hand Delivered Etelvina Days: Prior Verbal Notification: Recipient Understood Notice: Yes Recipient Signature: Yes Med Rec Note Co-signed by Attending: Coverage Notice Comment: Last DP export: 03/14/19 10:20 a Patient Name: RABIA MORENO Page 90517 at 1158 All edits/amendments must be made on the electronic document DICTATION DATE: 03/14/19 1158 OUTREACH SPECIALIST: RITA 03/14/19 1158 RPT#: [id number] DC DATE: STATUS: ADM IN [facility] [address] [place] [address] END OF REPORT
--- NOTE | 2019-03-14 12:50 | NUR ---
DISCHARGE PAPERWORK SIGNED. WAITING ON TRANSPORT. PREMEDICATED FOR EASIER RIDE. FRESH WATER PROVIDED. NO FURTHER NEEDS AT THIS TIME.
--- NOTE | 2019-03-14 13:50 | NUR ---
PATIENT RIDE HERE.
--- NOTE | 2019-03-18 10:15 | MORECARE ---
CASE MANAGEMENT DISCHARGE SUMMARY PATIENT: RABIA MORENO UNIT: [id number] ADM DATE: 03/02/19 AGE: 68 : 52 SEX: F ROOM/BED: D.2212 AUTHOR: MARIA C ENRIQUEZ PHYSICIAN: REFERRING PHYSICIAN: MAURA WONG MD DATE OF SERVICE: 03/18/19 Discharge Plan Patient Name: RABIA MORENO Facility: [facility]:[place] : 1950 Planned Disposition: Inpatient Rehab Anticipated Discharge Date: Discharge Date: 03/14/2019 Expected LOS: 0 Initial Reviewer: [email or web address] Initial Review Date: 03/04/2019 Generated: 03/18/19 11:15 am Comments DCP- Discharge Planning Updated by [email or web address]: Muna Quintero on 03/14/19 10:[address] [facility] and rehab will bean picker machine operator at 1300 DCP- Discharge Planning Updated by [id number]: Muna Quintero on 03/14/19 10:[address] Patient has been accepted to [facility], I spoke with Cherri and have faxed over clinicals. CARLOS served and explained to patient copy given to her. Cherri will call back with a bean picker machine operator time. CM to follow and assist as needed DCP- Discharge Planning Updated by [id number]: Molly Hernandez on 03/13/19 3:[address] Patient Name: RABIA MORENO Admission Status: ER Accout number: [id number] Admission Date: 03-02-2019 : 1950 Admission Diagnosis:DISPLACED BIMALLEOLAR FRACTURE OF LEFT LOWER LEG, INIT Attending: MAURA VILLANUEVA Current LOS: 11 Anticipated DC Date: Planned Disposition: Inpatient Rehab Primary Insurance: [facility] MED[employer] SOLUTIONS Discharge Planning Comments: I RECEIVED A VM FROM [facility] WITH CAT 1045 WITH AN APPROVAL FOR SNF THIS , AUTH [id number]. I RELAYED THE MESSAGE TO CHERRI AT [facility]. SHE IS STILL WORKING ON THIS OF 1632. Business Technology Professor: Molly Hernandez DCP- Discharge Planning Updated by [id number]: Muna Quintero on 03/08/19 4:[address] INPATIENT REHAB RECEIVED A DENIAL, REFERRAL SENT TO [facility]. CHERRI DUMONT NOTIFIED DCP- Discharge Planning Updated by [email or web address]: Muna Qiuntero on 03/05/19 1:[address] Patient Name: RABIA MORENO Admission Status: ER Accout number: [id number] Admission Date: 03-02-2019 : 1950 Admission Diagnosis:DISPLACED BIMALLEOLAR FRACTURE OF LEFT LOWER LEG, INIT Attending: MAURA VILLANUEVA Current LOS: 3 Anticipated DC Date: Planned Disposition: Inpatient Rehab Primary Insurance: [facility] [employer] Discharge Planning Comments: CM met with patient to complete initial dc planning assessment. CM educated patient on the CM role and verbal consent given by patient to complete assessment. Patient lives at home by herself where she was independent with her care. At discharge patient would like to go to inpatient rehab at [facility] and feels this is a safest discharge. CM discussed availability of home health, rehab services, and medical equipment. She has a cane and a CPAP (she owns) Dr Celestin will be her combine driver home. I discussed that she has managed medicare and it will have to be approved for inpatient rehab. She asked about a walking boot or shoe for her good foot. CM will continue to follow and will assist as needed with dc plans/needs. Business Technology Professor: Muna Quintero DCP- Discharge Planning Updated by [email or web address]: Molly Hernandez on 03/04/19 3:[address] Patient Name: RABIA MORENO Admission Status: ER Accout number: [id number] Admission Date: 03-02-2019 : 1950 Admission Diagnosis: Attending: MAURA VILLANUEVA Current LOS: 2 Anticipated DC Date: Planned Disposition: Primary Insurance: [facility] [employer] Discharge Planning Comments: CM SPOKE WITH PATIENT PER REQUEST. STATES SHE WOULD LIKE INPT REHAB IF POSSIBLE. I TOLD PATIENT I WOULD MAKE SURE CONSULTS WERE IN BECAUSE REHAB WOULD NEED THOSE. CM WILL GET BACK WITH HER WHEN EVALS ARE DONE. Business Technology Professor: Molly Hernandez DCPIA - Discharge Planning Initial Assessment Updated by [email or web address]: Muna Quintero on 03/05/19 1:57 pm * Is the patient Alert and Oriented? Yes * How many steps to enter\exit or inside your home? * PCP YADY DESIR * Pharmacy [facility] * Preadmission Environment Home Alone * ADLs Independent * Equipment Cane CPAP * List name and contact numbers for known caregivers / representatives who currently or will assist patient after discharge: GARCIA CELESTIN [phone] * Verbal permission to speak to the caregivers and representatives has been obtained from the patient. N/A * Community resources currently utilized None * Additional services required to return to the preadmission environment? Yes * Can the patient safely return to the preadmission environment? No * Has this patient been hospitalized within the prior 30 days at any hospital? No Coverage Notice Reviewer: [id number] Ara Quintero Notice Issued Date-Time: 03/14/2019 8:50 Notice Type: IM Discharge Notice Notice Delivered To: Patient Relationship to Patient: Recruiting Associate Name: Delivery Method: HAND - Hand Delivered Etelvina Days: Prior Verbal Notification: Recipient Understood Notice: Yes Recipient Signature: Yes Med Rec Note Co-signed by Attending: Coverage Notice Comment: Last DP export: 03/14/19 10:58 a Patient Name: RABIA MORENO Page 99534 at 1015 All edits/amendments must be made on the electronic document DICTATION DATE: 03/18/19 1014 ANTIQUE REFINISHER: RITA 03/18/19 1014 RPT#: [id number] DC DATE:03/14/19 STATUS: DIS IN [facility] [address] [place] [address] END OF REPORT
== END 2019-03-14 13:56 | DRG 493 ==
LOC: D.ER 16:37 → D.MS 19:01
PROVIDERS: Emergency Medicine; Family Medicine; Internal Medicine Nephrology; Orthopaedic Surgery; ADMIT Family Medicine; ATTEND Family Medicine
PROC: 0QSK04Z Reposition Left Fibula with Internal Fixation Device, Open Approach (ICD-10-PCS; principal; 2019-03-04 15:15)
DX: S82.842A Displaced bimalleolar fracture of left lower leg, initial encounter for closed fracture (principal); N17.9 Acute kidney failure, unspecified; D62 Acute posthemorrhagic anemia; W18.39XA Other fall on same level, initial encounter; Y92.009 Unspecified place in unspecified non-institutional (private) residence as the place of occurrence of the external cause; I25.10 Atherosclerotic heart disease of native coronary artery without angina pectoris; E11.40 Type 2 diabetes mellitus with diabetic neuropathy, unspecified; E03.9 Hypothyroidism, unspecified; E83.42 Hypomagnesemia; R74.0 Nonspecific elevation of levels of transaminase and lactic acid dehydrogenase [LDH]; E11.65 Type 2 diabetes mellitus with hyperglycemia

== ENCOUNTER → 2019-07-11 12:54 | Outpatient (CLI) | payer MEDICARE, MEDICAID ==
[2019-03-04 12:45] VITALS: BMI 35.5
[~2019-07-11 12:54] MED LIST changes: +AMITRIPTYLINE H50 MG PO; +BYSTOLIC20 MG PO; +ELIQUIS2.5 MG PO; +HYDROCODON-ACE1 EA10 PO; +PHENERGAN25 M1 PO; +TRAZODONE HCL150 MG PO; +ZANAFLEX4 MG PO
== END | disposition home or self-care (01) ==
LOC: D.CT 12:54
PROVIDERS: ATTEND Family Medicine
DX: R10.31 Right lower quadrant pain (principal)

== ENCOUNTER 2019-08-12 10:54 | Day surgery (SDC) | payer MEDICARE, MEDICAID ==
[~2019-08-12] VITALS: Ht 157.5 cm; Wt 91.6 kg
--- NOTE | ~2019-08-12 | OP ---
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 PROCEDURE: Right hip injection under fluoroscopy and TIVA anesthesia. SURGEON: Ana Mesa MD ANESTHESIA: TIVA. INTRAOPERATIVE COMPLICATIONS: None. SUMMARY OF PATHOLOGIC FINDINGS: The patient did have oeol-kk-oznvggfx arthritis seen on fluoroscopy consistent with preoperative radiographs. OPERATIVE SUMMARY IN DETAIL: After obtaining the appropriate preoperative orthopedic surgery consent as well as anesthetic consultation, evaluation and clearance, the patient was brought to the operating room and placed on the operating table in a supine position. After adequate TIVA anesthesia administered, the areas of the hip was prepped and draped in routine sterile fashion. An 18-gauge needle was then placed into the hip under direct fluoroscopic guidance. A small amount of Isovue was utilized to be sure that the hip was in appropriate position and then 40 mg of Depo-Medrol and 5 mL of 0.25% Marcaine with epinephrine were injected into the patient's hip. The patient tolerated the procedure well and was taken back to outpatient in stable condition. TRANSINT:[id number] Voice Confirmation ID: [id number] DOCUMENT ID: [id number] ANA MESA MD CC: [id number] DICTATION DATE: 08/12/19 142 RADIOLOGY SPECIALIST: 08/12/192051 [facility] 08/12/19 [place] [address] [place] [id number]
[~2019-08-12 10:54] MED LIST changes: +AMBIEN5 MG PO; +HUMULIN R100 UNIT/1 SQ; +LANTUS 100 UNIT/ML SQ; +ULTRAM50 MG PO
[2019-08-12 11:13] LABS: HEMATOCRIT 40.6 % (36.0-48.0); HEMOGLOBIN 13.3 g/dL (12-16); MCH 28.4 pg (26.0-34.0); MCHC 32.8 g/dL (31.0-37.0); MCV 86.8 fL (80.0-100.0); MEAN PLATELET VOLUME 8.7 fL (7.4-10.4); RBC 4.68 10x6/uL (4.00-5.40); RDW 14.7 % (11.5-14.5); WBC 17.4 10x3/uL (4.8-10.8)
[2019-08-12 11:33] LABS: ANION GAP 8.7 mmol/L (8-16); CALCIUM 8.9 mg/dL (8.5-10.1); CARBON DIOXIDE 27.5 mmol/L (21.0-32.0); CREATININE - SERUM 1.2 mg/dL (0.6-1.3); POTASSIUM - SERUM 4.2 mmol/L (3.5-5.1)
[2019-08-12 11:54] VITALS: BP 119/58; Ht 157.5 cm; Wt 91.6 kg
== END 2019-08-12 15:25 | disposition home or self-care (01) ==
LOC: D.OPS 10:54 → D.PAN 16:00 → D.OPS 16:00
PROVIDERS: Anesthesiology; ATTEND Orthopaedic Surgery
DX: M16.11 Unilateral primary osteoarthritis, right hip (principal); E11.9 Type 2 diabetes mellitus without complications; I10 Essential (primary) hypertension; E07.9 Disorder of thyroid, unspecified; M25.551 Pain in right hip; Z79.4 Long term (current) use of insulin

== ENCOUNTER 2019-11-09 14:13 | Inpatient (IN) | payer MEDICARE, MEDICAID ==
[~2019-11-09] VITALS: Ht 157.5 cm; Wt 90.7 kg
--- NOTE | ~2019-11-09 | HEMODYNAMI ---
PATIENT:RABIA MORENO MEDICAL RECORD: [id number] : 54 LOCATION:D. D.2237 ADMISSION DATE: 11/09/19 Generatedon:11/20/201910:00 Patient name: RABIA MORENO Patient #: [id number] SSN: D OB: 1950 Date of study: 11/20/2019 Page: Of Hemodynamic Procedure Report Patient Data Patient Demographics Procedure consent was obtained First Name: RABIA Gender: Female Last Name: JOSH : 1950 Middle Initial: A Age: 69 year(s) Patient #: [id number] Race: Unknown Additional ID: [id number] Contact details Address: [address] [place] [address] [address] State: [place] City: [facility] Zip code: [address] Admission Admission Data Admission Date: 11/09/2019 Admission Time: 16:43 Room #: D.2237 Procedure Procedure Types Cath Procedure Peripheral Cath Diagnostic Procedure Miscellaneous Procedure Description Procedure Date Procedure Date: 11/20/2019 Procedure Start Time: 9:24 Procedure Staff Name Function Tomas Perdomo MD Performing Physician Chi Salvador RT Scrub Sussy Gilliam RN Nurse Litzy DE LOS SANTOS RN Nurse Procedure Data Cath Procedure Fluoroscopy Diagnostic fluoroscopy Total fluoroscopy Time: 1.7 time: 1.7 min min Diagnostic fluoroscopy Total fluoroscopy dose: 34 dose: 34 mGy mGy Hemodynamics Rest Pre Cath Intra NCS Post Cath Procedure Log Time Note 9:05:02 Chi Salvador RT (R) (CV) sent for patient. Start room use. 9:05:12 Time tracking: Regular hours (M-F 7:00 - 5:00) 9:05:20 Patient received from Med/Surg to IR Alert and oriented. Tansferred to table in Supine position. 9:05:23 Signed procedure consent form obtained from patient. 9:05:24 Correct patient and procedure confirmed by team. 9:05:28 Full Disclosure recording started 9::28 9:05:29 Pre-procedure instructions explained to patient. 9:05:30 Pre-op teaching completed and patient verbalized understanding. 9:05:35 Is patient on blood thinner?No 9:05:46 Patient diabetic? Yes. 9:05:48 If diabetic: On Metformin? No 9:06:00 Use device set IR Diagnostic 9:06:03 Bag Decanter () opened to sterile field. 9:06:03 Sterile Angiographic Pack opened to sterile field. 9:06:04 Tegaderm 4 x 4 (1626W) opened to sterile field. 9:23:47 Right Arm area was prepped with chlora-prep and draped in sterile fashion 9:23:49 Physician arrived 9:23:49 --------ALL STOP TIME OUT------ 9:23:50 Final Timeout: patient, procedure, and site verified with staff and physician. All members of the team are in agreement. 9:23:57 Sedation plan: IV Moderate Sedation Medication:Lidocaine 9:24:19 Procedure started. 9:24:28 Local anesthetic to right arm with Lidocaine 1% by Tomas Perdomo MD.INITIAL ACCESS ONLY 9:24:38 PowerPICC 5Fr double lumen catheter opened to sterile field. 9:56:41 Procedure ended.(Physican Out) 9:56:51 Fluoroscopy time 01.70 minutes. 9:56:56 Fluoroscopy dose: 34 mGy 9:56:56 Flurop Dose total: 34 9:57:06 Insertion/operative site no bleeding no hematoma. 9:57:45 RT STATLOCK AND OPSITE APPLIED SITE STABLE PICC CUT TO 40CM 9:59:52 Report given to Med/Surg. 9:59:55 Patient transfered to Med/Surg with Bed. Device Usage Item Name Manufacture Quantity Catalog Hospital Part Current Minimal Lot# / Number Charge Number Stock Stock Serial# Code Bag Decanter Microtek 1 [id number] 5 () [employer]. Sterile Cardinal [address] [id number] 5 Angiographic Health Pack Tegaderm 4 x 3M 1 1626W [id number] [id number] 5 4 (1626W) [facility] Bard 1 [id number] [id number] [id number] 5 5Fr double lumen catheter Signature Audit Mobile Stage Time Signature Unsigned Intra-Procedure 11/20/2019 Chi 10:00:45 AM [place] RT (R) (CV) [facility] [address] [place] [address]
[2019-11-09] MEDS ORDERED: HYDROCODON-ACE1 EAC7 PO (15:26)
--- NOTE | 2019-11-09 16:26 | NUR ---
PT ACCIDENTLY DC'D FROM ER, SHE IS GOING TO BE AN ADMIT TO THE HOSPITAL.
[2019-11-09 16:42] LABS: BASOPHILS 0.2 % (0-2); EOSINOPHILS 0.5 % (0-7); HEMATOCRIT 43.3 % (36.0-48.0); HEMOGLOBIN 14.1 g/dL (12-16); IMMATURE GRANULOCYTES 2.2 % (0-5); LYMPHOCYTES 24.7 % (15-50); MCH 28.9 pg (26.0-34.0); MCHC 32.6 g/dL (31.0-37.0); MCV 88.7 fL (80.0-100.0); MONOCYTES 7.7 % (2-11); NEUTROPHILS 64.7 % (40-80); PLATELET COUNT 276 10x3/uL (130-400); RBC 4.88 10x6/uL (4.00-5.40); RDW 13.8 % (11.5-14.5); WBC 18.1 10x3/uL (4.8-10.8)
[2019-11-09 16:49] LABS: ANION GAP 10.5 mmol/L (8-16); CALCIUM 9.2 mg/dL (8.5-10.1); CARBON DIOXIDE 30.7 mmol/L (21.0-32.0); CREATININE - SERUM 1.3 mg/dL (0.6-1.3); POTASSIUM - SERUM 4.2 mmol/L (3.5-5.1)
[2019-11-09 16:51] LABS: BILIRUBIN NEGATIVE (NEGATIVE); GLUCOSE 250 mg/dL (NEGATIVE); KETONE NEGATIVE (NEGATIVE); NITRITE NEGATIVE (NEGATIVE); SPECIFIC GRAVITY 1.005 (1.005-1.020); UROBILINOGEN NORMAL (NORMAL)
--- NOTE | 2019-11-09 17:00 | NUR ---
PATIENT RECEIVED TO ROOM. IVF AND ABX STARTED AT PRESCRIBED RATE TO LEFT F/A. NOW ERRYTHEMA OR WARMTH NOTED TO LEFT MANDIBLE AREA AND DENIES ANY TROUBLE CHEWING OR SWALLOWING.
--- NOTE | 2019-11-09 17:03 | NUR ---
REPORT CALLED TO [facility] ON MED 1, PT BEING ADMITTED TO ROOM [address] ALBA. IV OF ROCEPHIN INFUSING ON DEPARTURE IN LEFT FA. VITAL SIGNS TEMP 98.1 SATS 100% ON RA, RESP 18 , BLOOD PRESSURE 142/73 PULSE 72
[2019-11-09 17:05] LABS: ALBUMIN 3.9 g/dL (3.4-5.0); BILIRUBIN - TOTAL 0.2 mg/dL (0.2-1.3); PROTEIN - SERUM 8.3 g/dL (6.4-8.2)
--- NOTE | 2019-11-09 17:05 | NUR ---
PT TO ROOM VIA WHEEL CHAIR.
[2019-11-09] MEDS ORDERED: SINGULAIR10 MG PO (18:05)
[2019-11-09 18:13] VITALS: BP 178/86; BMI 36.6
[2019-11-09 20:00] VITALS: BP 111/63
[2019-11-10] VITALS: BP 149/65
[2019-11-10 04:00] VITALS: BP 158/75
--- NOTE | 2019-11-10 04:00 | NUR ---
I have reviewed this patient and I concur with the Shift Assessment completed by the Licensed Practical Nurse today this shift.
[2019-11-10 06:37] LABS: BASOPHILS 0.3 % (0-2); EOSINOPHILS 1.2 % (0-7); HEMATOCRIT 38.6 % (36.0-48.0); HEMOGLOBIN 12.4 g/dL (12-16); IMMATURE GRANULOCYTES 1.7 % (0-5); LYMPHOCYTES 23.8 % (15-50); MCH 28.9 pg (26.0-34.0); MCHC 32.1 g/dL (31.0-37.0); MONOCYTES 8.1 % (2-11); NEUTROPHILS 64.9 % (40-80); PLATELET COUNT 271 10x3/uL (130-400); RBC 4.29 10x6/uL (4.00-5.40); RDW 14.1 % (11.5-14.5); WBC 17.9 10x3/uL (4.8-10.8)
[2019-11-10 07:00] LABS: ALBUMIN 3.5 g/dL (3.4-5.0); ANION GAP 9.7 mmol/L (8-16); BILIRUBIN - TOTAL 0.26 mg/dL (0.2-1.3); CALCIUM 8.3 mg/dL (8.5-10.1); CARBON DIOXIDE 29.3 mmol/L (21.0-32.0); CREATININE - SERUM 1.2 mg/dL (0.6-1.3); MAGNESIUM - SERUM 1.9 mg/dL (1.8-2.4); PROTEIN - SERUM 7.3 g/dL (6.4-8.2)
[2019-11-10 07:13] LABS: APTT 23.1 SECONDS (22.8-39.4); INR 1.04 (0.85-1.17); PROTIME 13.5 SECONDS (11.6-15.0)
[2019-11-10 08:00] VITALS: BP 145/77
[2019-11-10 12:00] VITALS: BP 135/78
[2019-11-10 21:01] VITALS: BP 150/76
[2019-11-11 00:21] VITALS: BP 141/65
[2019-11-11 06:20] LABS: BASOPHILS 0.2 % (0-2); EOSINOPHILS 2.9 % (0-7); HEMATOCRIT 38.1 % (36.0-48.0); HEMOGLOBIN 12.1 g/dL (12-16); IMMATURE GRANULOCYTES 1.8 % (0-5); LYMPHOCYTES 35.5 % (15-50); MCH 28.8 pg (26.0-34.0); MCHC 31.8 g/dL (31.0-37.0); MCV 90.7 fL (80.0-100.0); MONOCYTES 7.8 % (2-11); NEUTROPHILS 51.8 % (40-80); PLATELET COUNT 227 10x3/uL (130-400); RDW 14.2 % (11.5-14.5); WBC 16.4 10x3/uL (4.8-10.8)
[2019-11-11 06:33] LABS: ALBUMIN 3.3 g/dL (3.4-5.0); ANION GAP 10.6 mmol/L (8-16); BILIRUBIN - TOTAL 0.28 mg/dL (0.2-1.3); CALCIUM 8.2 mg/dL (8.5-10.1); CARBON DIOXIDE 27.5 mmol/L (21.0-32.0); CREATININE - SERUM 1.3 mg/dL (0.6-1.3); POTASSIUM - SERUM 4.1 mmol/L (3.5-5.1); PROTEIN - SERUM 7.1 g/dL (6.4-8.2)
--- NOTE | 2019-11-11 06:46 | NUR ---
I have reviewed this patient and I concur with the Shift Assessment completed by the Licensed Practical Nurse today this shift.
[2019-11-11 06:47] VITALS: BP 142/74
--- NOTE | 2019-11-11 08:00 | NUR ---
SHE C/O HER LEFT EAR AND THROAT HURTING. THE CALL LIGHT IS WITHIN REACH.
[2019-11-11 08:16] VITALS: BP 133/59
[2019-11-11 12:11] VITALS: BP 118/69
[2019-11-11 14:18] VITALS: BMI 36.6
[2019-11-11 16:54] VITALS: BP 147/65
[2019-11-11 21:58] VITALS: BP 137/65
[2019-11-12 00:51] VITALS: BP 112/54
--- NOTE | 2019-11-12 01:31 | NUR ---
REC'D CHGE OF SHIFT WALKING ROUNDS SITTING ON SIDE OF BED.DENIES ANY PAIN OR EAR DISCOMFORT AT PRESENT TIME.WILL CONTINUE TO MONITOR FOR ANY CHGES AND FOLLOW CURRENT PLAN OF CARE.
[2019-11-12 05:51] LABS: ALBUMIN 3.4 g/dL (3.4-5.0); ANION GAP 14.8 mmol/L (8-16); BILIRUBIN - TOTAL 0.49 mg/dL (0.2-1.3); CALCIUM 8.6 mg/dL (8.5-10.1); CARBON DIOXIDE 25.9 mmol/L (21.0-32.0); CREATININE - SERUM 1.2 mg/dL (0.6-1.3); MAGNESIUM - SERUM 2.1 mg/dL (1.8-2.4); PHOSPHOROUS 4.6 mg/dL (2.5-4.9); POTASSIUM - SERUM 4.7 mmol/L (3.5-5.1)
[2019-11-12 05:54] LABS: HEMATOCRIT 38.4 % (36.0-48.0); MCH 28.8 pg (26.0-34.0); MCHC 31.3 g/dL (31.0-37.0); MCV 92.3 fL (80.0-100.0); MEAN PLATELET VOLUME 9.4 fL (7.4-10.4); RBC 4.16 10x6/uL (4.00-5.40); RDW 14.2 % (11.5-14.5); WBC 13.3 10x3/uL (4.8-10.8)
[2019-11-12 06:16] VITALS: BP 113/93
[2019-11-12 06:25] LABS: PLATELET COUNT 179 10x3/uL (130-400)
--- NOTE | 2019-11-12 07:29 | NUR ---
I have reviewed this patient and I concur with the Shift Assessment completed by the Licensed Practical Nurse today this shift.
[2019-11-12 08:45] VITALS: BP 150/71
[2019-11-12 10:17] LABS: EOSINOPHILS 4 % (0-7); LYMPHOCYTES 27 % (15-50); MONOCYTES 8 % (2-11); NEUTROPHILS 61 % (40-80); PLATELET ESTIMATE NORMAL; ROULEAUX OCC
--- NOTE | 2019-11-12 12:24 | NUR ---
ADMINSITERED MEDICATION AT THIS TIME, NO DIFFICULTY. PRN DILAUDID FOR EAR AND THROAT PAIN 01/19. ASSESSED BLOOD SUGAR, 224. GAVE 8 UNITS INSULIN PER SLIDING SCALE. PT IS UPRIGHT ON BEDSIDE EATING LUNCH. NEW IV TO THE LEFT UPPER ARM. DENIES ANY NEEDS. WILL CONTINUE TO MONITOR.
[2019-11-12 12:53] VITALS: BP 152/55
--- NOTE | 2019-11-12 16:40 | NUR ---
ADMINISTERED PO AND EAR MEDICATIONS. ASSESSED BLOOD SUGAR, 252. GAVE 10 UNITS INSULIN PER SLIDING SCALE. PT IS RESTING IN BED COMFORTABLY. DENIES ANY OTHER NEEDS AT THIS TIME. WILL CONTINUE TO MONITOR.
[2019-11-12 16:55] VITALS: BP 140/52
--- NOTE | 2019-11-12 17:44 | NUR ---
DC IV FROM RIGHT FOREARM DUE TO SWELLING AND INFILTRATION. CATHETER TIP INTACT, 2X2 AND TAPE COVERING SITE. TOLERATED WELL. DENIES ANY NEEDS AT THIS TIME. RESTING COMFORTABLY. WILL CONTINUE TO MONITOR.
--- NOTE | 2019-11-12 17:59 | NUR ---
ADMINISTERED PRN PERCOCET FOR PAIN AND PHENERGAN TO PREVENT NAUSEA. PT IS RESTING COMFORTABLY IN BED. DENIES ANY NEEDS. WILL CONTINUE TO MONITOR.
[2019-11-12 18:07] VITALS: Ht 157.5 cm; Wt 90.7 kg
--- NOTE | 2019-11-12 19:50 | NUR ---
PT REPORTS THE PERCOCET GIVEN EARLIER DID NOT BRING HER PAIN DOWN TO A TOLERABLE LEVEL. SHE REPORTS HAVING PAIN TO HER LEFT EAR. SHE RATES IT 8/10. GAVE HER PRN DILAUDID. SHE DENIES FURTHER NEEDS. BED LOW AND CALL LIGHT WITHIN REACH.
[2019-11-12 20:58] VITALS: BP 150/69
[2019-11-13 05:29] VITALS: BP 131/59
--- NOTE | 2019-11-13 08:21 | NUR ---
RESTING ON BEDSIDE, NO DISTRESS NOTED, CONT TO MONITOR PAIN
[2019-11-13 08:30] VITALS: BP 151/54
[2019-11-13 12:16] VITALS: BP 137/51
--- NOTE | 2019-11-13 12:18 | MORECARE ---
CASE MANAGEMENT DISCHARGE SUMMARY PATIENT: RABIA MORENO UNIT: [id number] ADM DATE: 11/09/19 AGE: 69 : 52 SEX: F ROOM/BED: D.2237 AUTHOR: MARIA C ENRIQUEZ PHYSICIAN: REFERRING PHYSICIAN: HUONG ALBA MD DATE OF SERVICE: 11/13/19 Discharge Plan Patient Name: RABIA MORENO Facility: [facility]:[place] : 1950 Planned Disposition: Home with Home Health and Infusion Serv Anticipated Discharge Date: Discharge Date: Expected LOS: Initial Reviewer: [email or web address] Initial Review Date: 11/13/2019 Generated: 11/13/19 1:18 pm Comments DCP- Discharge Planning Updated by [id number]: Molly Hernandez on 11/13/19 11:[address] Patient Name: RABIA MORENO Admission Status: ER Accout number: [id number] Admission Date: 11-09-2019 : 1950 Admission Diagnosis:OTALGIA, LEFT EAR Attending: CHRISTINA ALBA Current LOS: 4 Anticipated DC Date: Planned Disposition: Home with Home Health and Infusion Serv Primary Insurance: [facility] MEDICARE SOLUTIONS Discharge Planning Comments: CM met with patient at bedside after explaining CM role and obtaining verbal consent. CM discussed availability / needs of home health, REHAB and medical equipment. SHE WILL NEED HH AND AN IV INFUSION COMPANY AT DISCHARGE. JUAN CARLOS SIGNED FOR [facility] AND [email or web address]. I AM FAXING REFERRAL TODAY TO ANTICIPATE AND MONDAY OR MON DISCHARGE. CM WILL FOLLOW AND ASSIST NEEDED. Vehicle Painter: Molly Hernandez DCPIA - Discharge Planning Initial Assessment Updated by [email or web address]: Molly Hernandez on 11/13/19 12:11 pm * Is the patient Alert and Oriented? Yes * PCP FAYE * Preadmission Environment Home Alone * ADLs Independent * Other Equipment SHOWER CHAIR, CPAP * List name and contact numbers for known caregivers / representatives who currently or will assist patient after discharge: PENNIE GRIER * Community resources currently utilized None * Additional services required to return to the preadmission environment? Yes * Can the patient safely return to the preadmission environment? Yes * Has this patient been hospitalized within the prior 30 days at any hospital? No External Providers External Provider: [facility] Next Contact Date: Service Request Date: Service Type: Resolution: Reviewer: Comments: External Provider: [facility] Next Contact Date: Service Request Date: Service Type: Resolution: Reviewer: Comments: Coverage Notice Reviewer: [id number] Ara Hernandez Notice Issued Date-Time: 11/13/2019 12:13 Notice Type: Patient Choice Letter Notice Delivered To: Relationship to Patient: Administrative Support Technician Name: Delivery Method: HAND - Hand Delivered Etelvina Days: Prior Verbal Notification: Recipient Understood Notice: Yes Recipient Signature: Yes Med Rec Note Co-signed by Attending: Coverage Notice Comment: [facility] Patient Name: RABIA MORENO Page [phone] at 1218 All edits/amendments must be made on the electronic document DICTATION DATE: 11/13/19 1218 SENIOR SUPPLIER QUALITY ENGINEER: RITA 11/13/19 1218 RPT#: [id number] DC DATE: STATUS: ADM IN [facility] [address] [place] [address] END OF REPORT
--- NOTE | 2019-11-13 13:00 | NUR ---
AWAITING VASCULAR ACCESS, PT IV OUT, NOA HECTOR
--- NOTE | 2019-11-13 14:16 | NUR ---
Nutrition follow-up: Diet: ADA consistent CHO PO intake 100% of meals Labs reviewed; Glucose still over 200 mg/dl. Insulin being adjusted Wt: 199# PO intake good at this time RDN following.
[2019-11-13 14:54] VITALS: BP 123/39
--- NOTE | 2019-11-13 18:00 | NUR ---
IV FLUIDS RESUMED PER MIDLINE TO R UPPER ARM, CONT TO MONITOR PAIN
[2019-11-13 20:00] VITALS: BP 131/59
--- NOTE | 2019-11-13 20:00 | NUR ---
ALERT REQUESTING PAIN PILL AND ZOFRAN, GIVEN ORDERED, REPORTS HEAD AND EAR HURTING, SEE SHIFT ASSESSMENT, CALL LIGHT IN REACH
[2019-11-14 04:00] VITALS: BP 136/54
[2019-11-14 05:56] LABS: ANION GAP 19.3 mmol/L (8-16); BILIRUBIN - TOTAL 0.25 mg/dL (0.2-1.3); CALCIUM 7.9 mg/dL (8.5-10.1); CARBON DIOXIDE 19.5 mmol/L (21.0-32.0); CREATININE - SERUM 1.2 mg/dL (0.6-1.3); MAGNESIUM - SERUM 1.8 mg/dL (1.8-2.4); PHOSPHOROUS 3.9 mg/dL (2.5-4.9); POTASSIUM - SERUM 4.8 mmol/L (3.5-5.1); PROTEIN - SERUM 6.1 g/dL (6.4-8.2)
[2019-11-14 05:57] LABS: BASOPHILS 0.3 % (0-2); EOSINOPHILS 1.7 % (0-7); HEMATOCRIT 36.5 % (36.0-48.0); IMMATURE GRANULOCYTES 0.7 % (0-5); LYMPHOCYTES 26.3 % (15-50); MCH 28.5 pg (26.0-34.0); MCHC 30.1 g/dL (31.0-37.0); MCV 94.6 fL (80.0-100.0); MEAN PLATELET VOLUME 9.2 fL (7.4-10.4); MONOCYTES 7.3 % (2-11); NEUTROPHILS 63.7 % (40-80); RBC 3.86 10x6/uL (4.00-5.40); RDW 14.2 % (11.5-14.5); WBC 7.7 10x3/uL (4.8-10.8)
[2019-11-14 05:59] LABS: PLATELET COUNT 135 10x3/uL (130-400)
[2019-11-14 08:00] VITALS: BP 126/57
--- NOTE | 2019-11-14 09:40 | NUR ---
PT SEEMS CONFUSED AT TIMES, BUT ANSWERS ALL QUESTIONS APPROPRIATELY. BREATH SOUNDS SLIGHTLY SCRATCHY TO RLL, ENCOURAGED COUGH AND DEEP BREATHING EXERCISES. MIDLINE TO RIGHT UPPER ARM, PATENT, DRESSING CDI. PT REPORTING PAIN OF 8/10, MEDICATED PER ORDERS, WILL CONTINUE TO MONITOR. BED LOW, CALL LIGHT IN REACH. NO OTHER NEEDS AT THIS TIME.
[2019-11-14 12:00] VITALS: BP 125/47
[2019-11-14 16:00] VITALS: BP 130/56
[2019-11-14 17:49] LABS: BASOPHILS 0.3 % (0-2); EOSINOPHILS 1.7 % (0-7); HEMATOCRIT 39.8 % (36.0-48.0); LYMPHOCYTES 33.8 % (15-50); MCH 28.6 pg (26.0-34.0); MCHC 30.2 g/dL (31.0-37.0); MEAN PLATELET VOLUME 9.5 fL (7.4-10.4); MONOCYTES 6.8 % (2-11); NEUTROPHILS 56.4 % (40-80); RBC 4.19 10x6/uL (4.00-5.40); RDW 14.2 % (11.5-14.5)
[2019-11-14 17:50] LABS: PLATELET COUNT 179 10x3/uL (130-400); WBC 10.6 10x3/uL (4.8-10.8)
[2019-11-14 17:52] LABS: ANION GAP 14.9 mmol/L (8-16); CALCIUM 8.3 mg/dL (8.5-10.1); CREATININE - SERUM 1.4 mg/dL (0.6-1.3); POTASSIUM - SERUM 5.2 mmol/L (3.5-5.1)
[2019-11-14 17:59] LABS: CARBON DIOXIDE 25.3 mmol/L (21.0-32.0)
[2019-11-14 20:00] VITALS: BP 100/46
--- NOTE | 2019-11-14 20:00 | NUR ---
PATIENT RESTING IN BED TALKING ON PHONE. NO S/S OF ACUTE DISTRESS. NO C/O AT THIS TIME. PATIENT HAS RIGHT UPPER MIDLINE, NORMAL SALINE @ 75 ML/HR. IV IS PATENT WITHOUT REDNESS, SWELLING, OR TENDERNESS. PATIENT IS UP ADLIB TO THE BATHROOM. PATIENT INFORMED ME OF NOT LIKING THE PERCOCET-10 AND WANTING ANOTHER PAIN MEDICINE ORDERED "SOMETHING THAT STARTED WITH A D", AND I TOLD PATIENT I WOULD CALL THE NURSE PRACTIONER, BOLIVAR, AND SEE WHAT HE SAYS. PAUL THEN ASKED WHEN WAS THE NEXT TIME SHE COULD HAVE THE PERCOCET-10, EVEN THOUGH SHE HAD A MULTITUDE OF ISSUES WITH IT. CALL LIGHT WITHIN REACH. WILL CONTINUE TO MONITOR.
--- NOTE | 2019-11-14 22:30 | NUR ---
CALLED BOLIVAR KEITH, AND ASKED IF PATIENT COULD HAVE SOMETHING OTHER THAN PERCOCET-10 BECAUSE PATIENT SAID IT WAS HAVING MANY ADVERSE AFFECTS ON HER (DIZZINESS, NAUSEA, EARS RINGING, AND TINGLING). BOLIVAR SAID THAT NO CHANGES WILL BE MADE TO HER PAIN MEDICATION AND THAT SHE HAD BEEN INFORMED OF THIS BEFORE. CALL LIGHT WITHIN REACH. WILL CONTINUE TO MONITOR.
--- NOTE | 2019-11-14 23:06 | NUR ---
PATEINT ASKED ME TO CHECK HER TEMPERATURE, IT WAS NORMAL @ 1999. PATIENT'S TEMPERATURE WAS 100.2, AND TYLENOL WAS GIVEN. CALL LIGHT WITHIN REACH. WILL CONTINUE TO ONI.
--- NOTE | 2019-11-15 02:12 | NUR ---
I have reviewed this patient and I concur with the Shift Assessment completed by the Licensed Practical Nurse today this shift.
[2019-11-15 04:00] VITALS: BP 199/56
--- NOTE | 2019-11-15 04:00 | NUR ---
PATIENT WALKED INTO HALLWAY SCARED AND EXCLAIMED "DON'T TOUCH ME, I'LL DISAPPEAR!" AFTER CALMING THE PATIENT DOWN I GOT HER INTO BED SAFELY AND SHE FELL BACK ASLEEP. I TALKED WITH THE PATEINT AGAIN AND SHE BLAMED ALL THE CONFUSION AND OUTBURST ON THE PERCOCET-10. CALL LIGHT WITHIN REACH. WILL CONTINUE TO MONITOR.
[2019-11-15 08:00] VITALS: BP 135/74
--- NOTE | 2019-11-15 08:00 | NUR ---
PT RESTING IN BED ON SIDE WITH EYES CLOSED UPON ENTERING. BREATHING EVEN AND UNLABORED. NO S/S OF DISTRESS NOTED. EASLIY AROUSES TO VOICE AND LIGHT STIMULI. ADMINISTERED MEDICATION, SPIKE NEW BAG OF FLUIDS AND ASSESSED BLOOD SUGAR. SUGAR OF 153. DENIES WANTING COVERAGE FOR IT. PT UP AND IN BATHROOM UPON LEAVING. DENIES ANY NEEDS. WILL CONTINUE TO MONITOR.
--- NOTE | 2019-11-15 09:12 | MORECARE ---
CASE MANAGEMENT DISCHARGE SUMMARY PATIENT: RABIA MORENO UNIT: [id number] ADM DATE: 11/09/19 AGE: 69 : 52 SEX: F ROOM/BED: D.2237 AUTHOR: MARIA C ENRIQEUZ PHYSICIAN: REFERRING PHYSICIAN: HUONG ALBA MD DATE OF SERVICE: 11/15/19 Discharge Plan Patient Name: RABIA MORENO Facility: [facility]:[place] : 1950 Planned Disposition: Home with Home Health and Infusion Serv Anticipated Discharge Date: Discharge Date: Expected LOS: Initial Reviewer: [email or web address] Initial Review Date: 11/13/2019 Generated: 11/15/19 10:12 am Comments DCP- Discharge Planning Updated by [email or web address]: Molly Hernandez on 11/13/19 11:[address] Patient Name: RABIA MORENO Admission Status: ER Accout number: [id number] Admission Date: 11-09-2019 : 1950 Admission Diagnosis:OTALGIA, LEFT EAR Attending: CHRISTINA ALBA Current LOS: 4 Anticipated DC Date: Planned Disposition: Home with Home Health and Infusion Serv Primary Insurance: [facility] MEDICARE SOLUTIONS Discharge Planning Comments: CM met with patient at bedside after explaining CM role and obtaining verbal consent. CM discussed availability / needs of home health, REHAB and medical equipment. SHE WILL NEED HH AND AN IV INFUSION COMPANY AT DISCHARGE. JUAN CARLOS SIGNED FOR [facility] AND [employer] [facility]. I AM FAXING REFERRAL TODAY TO ANTICIPATE AND MONDAY OR MON DISCHARGE. CM WILL FOLLOW AND ASSIST NEEDED. Stove Polisher: Molly Hernandez DCPIA - Discharge Planning Initial Assessment Updated by [email or web address]: Molly Hernandez on 11/13/19 12:11 pm * Is the patient Alert and Oriented? Yes * PCP FAYE * Preadmission Environment Home Alone * ADLs Independent * Other Equipment SHOWER CHAIR, CPAP * List name and contact numbers for known caregivers / representatives who currently or will assist patient after discharge: PENNIE GIRER * Community resources currently utilized None * Additional services required to return to the preadmission environment? Yes * Can the patient safely return to the preadmission environment? Yes * Has this patient been hospitalized within the prior 30 days at any hospital? No External Providers External Provider: [facility] Next Contact Date: Service Request Date: Service Type: Resolution: Reviewer: Comments: Coverage Notice Reviewer: [id number] Ara Mollysteve Hernandez Notice Issued Date-Time: 11/13/2019 12:13 Notice Type: Patient Choice Letter Notice Delivered To: Relationship to Patient: Subsurface Augmentee Operator Name: Delivery Method: HAND - Hand Delivered Etelvina Days: Prior Verbal Notification: Recipient Understood Notice: Yes Recipient Signature: Yes Med Rec Note Co-signed by Attending: Coverage Notice Comment: [facility] Last DP export: 11/13/19 11:18 am Patient Name: RABIA MORENO Page [phone] at 0912 All edits/amendments must be made on the electronic document DICTATION DATE: 11/15/19911 HOSE TENDER: RITA 11/15/19911 RPT#: [id number] DC DATE: STATUS: ADM IN [facility] [address] [place] [address] END OF REPORT
--- NOTE | 2019-11-15 09:19 | MORECARE ---
CASE MANAGEMENT DISCHARGE SUMMARY PATIENT: RABIA MORENO UNIT: [id number] ADM DATE: 11/09/19 AGE: 69 : 52 SEX: F ROOM/BED: D.2237 AUTHOR: ZOE,DOC PHYSICIAN: REFERRING PHYSICIAN: HUOGN ALBA MD DATE OF SERVICE: 11/15/19 Discharge Plan Patient Name: RABIA MORENO Facility: [facility]:[place] : 1950 Planned Disposition: Home with Home Health and Infusion Serv Anticipated Discharge Date: Discharge Date: Expected LOS: Initial Reviewer: [email or web address] Initial Review Date: 11/13/2019 Generated: 11/15/19 10:19 am Comments DCP- Discharge Planning Updated by [email or web address]: Molly Hernandez on 11/15/19 8:[address] Patient Name: RABIA MORENO Admission Status: ER Accout number: [id number] Admission Date: 11-09-2019 : 1950 Admission Diagnosis:OTALGIA, LEFT EAR Attending: CHRISTINA ALBA Current LOS: 6 Anticipated DC Date: Planned Disposition: Home with Home Health and Infusion Serv Primary Insurance: [facility] MEDICARE SOLUTIONS Discharge Planning Comments: FAXED CLINICALS TO [facility] THIS MORNING.WAITING TO HEAR BACK TO SEE IF HER INSURANCE IS GOING TO COVER. [facility] CALLED ME BACK AND HER INSURANCE WILL NOT COVER EVERYTHING WITH THEM. I WILL CONTINUE TO FOLLOW AND ASSIST NEEDED. Adjunct Business Instructor: Molly Hernandez DCP- Discharge Planning Updated by [id number]: Molly Hernandez on 11/13/19 11:[address] Patient Name: RABIA MORENO Admission Status: ER Accout number: [id number] Admission Date: 11-09-2019 : 1950 Admission Diagnosis:OTALGIA, LEFT EAR Attending: CHRISTINA ALBA Current LOS: 4 Anticipated DC Date: Planned Disposition: Home with Home Health and Infusion Serv Primary Insurance: [facility] MEDICARE SOLUTIONS Discharge Planning Comments: CM met with patient at bedside after explaining CM role and obtaining verbal consent. CM discussed availability / needs of home health, REHAB and medical equipment. SHE WILL NEED HH AND AN IV INFUSION COMPANY AT DISCHARGE. JUAN CARLOS SIGNED FOR [facility] AND [employer]. I AM FAXING REFERRAL TODAY TO ANTICIPATE AND MONDAY OR MON DISCHARGE. CM WILL FOLLOW AND ASSIST NEEDED. Adjunct Business Instructor: Molly Hernandez DCPIA - Discharge Planning Initial Assessment Updated by [id number]: Molly Hernandez on 11/13/19 12:11 pm * Is the patient Alert and Oriented? Yes * PCP FAYE * Preadmission Environment Home Alone * ADLs Independent * Other Equipment SHOWER CHAIR, CPAP * List name and contact numbers for known caregivers / representatives who currently or will assist patient after discharge: PENNIE GRIER * Community resources currently utilized None * Additional services required to return to the preadmission environment? Yes * Can the patient safely return to the preadmission environment? Yes * Has this patient been hospitalized within the prior 30 days at any hospital? No Coverage Notice Reviewer: [id number] - Molly Hernandez Notice Issued Date-Time: 11/13/2019 12:13 Notice Type: Patient Choice Letter Notice Delivered To: Relationship to Patient: Lamp Stack Developer Name: Delivery Method: HAND - Hand Delivered Etelvina Days: Prior Verbal Notification: Recipient Understood Notice: Yes Recipient Signature: Yes Med Rec Note Co-signed by Attending: Coverage Notice Comment: [facility] Last DP export: 11/15/19 8:12 am Patient Name: RABIA MORENO Page [phone] at 0919 All edits/amendments must be made on the electronic document DICTATION DATE: 11/15/19918 WIND TURBINE SERVICE TECHNICIAN: RITA 11/15/19918 RPT#: [id number] DC DATE: STATUS: ADM IN [facility] [address] [place] [address] END OF REPORT
--- NOTE | 2019-11-15 10:10 | NUR ---
PT SUPINE IN BED UPON ENTERING, UP AND AMBULATED TO THE BATHROOM AND BACK WHILE IN ROOM, NO DIFFICULTIES. ADMINISTERED MEDICATIONS. RESTING COMFORTABLY IN BED ON RIGHT SIDE AFTER EAR DROPS PUT IN LEFT EAR. ASSESSMENT PERFORMED AT THIS TIME. PT IS A BIT CONFUSED, DOESN'T KNOW WHAT DAY IT AND ASKED IF SHE WAS IN A DIFFERENT ROOM. PT HAS NOT BE CONFUSED UNTIL LAST NIGHT PER REPORT. WILL MONITOR CLOSELY. PT HAS A TEMP OF 102, GAVE PRN TYLENOL TO HELP. DENIES ANY NEEDS. BED IN LOWEST POSITION, BED RAILS X2, CALL LIGHT WITHIN REACH. WILL CONTINUE TO MONITOR.
[2019-11-15 12:00] VITALS: BP 131/59
--- NOTE | 2019-11-15 12:40 | NUR ---
ADMINISTERED MEDICATIONS. ASSESSED BLOOD SUGAR. GAVE 12 UNITS INSULIN PER SLIDING SCALE FOR SUGAR OF 213. PT IS UP RIGHT ON BEDSIDE EATING LUNCH. DENIES ANY NEEDS. WILL CONTINUE TO MONITOR.
--- NOTE | 2019-11-15 15:21 | MORECARE ---
CASE MANAGEMENT DISCHARGE SUMMARY PATIENT: RABIA MORENO UNIT: [id number] ADM DATE: 11/09/19 AGE: 69 : 52 SEX: F ROOM/BED: D.2237 AUTHOR: MARIA C ENRIQUEZ PHYSICIAN: REFERRING PHYSICIAN: HUONG ALBA MD DATE OF SERVICE: 11/15/19 Discharge Plan Patient Name: RABIA MORENO Facility: [facility]:[place] : 1950 Planned Disposition: Home with Home Health and Infusion Serv Anticipated Discharge Date: Discharge Date: Expected LOS: Initial Reviewer: [id number] Initial Review Date: 11/13/2019 Generated: 11/15/19 4:20 pm Comments DCP- Discharge Planning Updated by [id number]: Molly Hernandez on 11/15/19 2:[address] Patient Name: RABIA MORENO Admission Status: ER Accout number: [id number] Admission Date: 11-09-2019 : 1950 Admission Diagnosis:OTALGIA, LEFT EAR Attending: CHRISTINA ALBA Current LOS: 6 Anticipated DC Date: Planned Disposition: Home with Home Health and Infusion Serv Primary Insurance: [facility] MEDICARE SOLUTIONS Discharge Planning Comments: FAXED CLINICALS TO [facility] THIS MORNING.WAITING TO HEAR BACK TO SEE IF HER INSURANCE IS GOING TO COVER. [facility] CALLED ME BACK AND HER INSURANCE WILL NOT COVER EVERYTHING WITH THEM. I WILL CONTINUE TO FOLLOW AND ASSIST NEEDED. Health Tech: Molly Hernandez Appended by Molly Hernandez on 11/15/2019 15:14 CDT: WITH [employer] SHE WILL HAVE OUT OF POCKET $207.20. I SPOKE WITH HER ABOUT THIS AND SHE SAYS SHE HAS NO EXTRA MONEY TO SET UP PAYMENT PLAN WITH THEM. I SPOKE BRIEFLY WITH HER ABOUT LONGTERM FACILITIES FOR HER IV INFUSIONS. SHE IS THINKING ABOUT IT, I REALLY DON'T THINK SHE WILL AGREE TO SNF BUT I WILL CHECK BACK WITH HER LATER TODAY. DCP- Discharge Planning Updated by [id number]: Molly Hernandez on 11/13/19 11:[address] Patient Name: RABIA MORENO Admission Status: ER Accout number: [id number] Admission Date: 11-09-2019 : 1950 Admission Diagnosis:OTALGIA, LEFT EAR Attending: CHRISTINA ALBA Current LOS: 4 Anticipated DC Date: Planned Disposition: Home with Home Health and Infusion Serv Primary Insurance: [facility] MEDICARE SOLUTIONS Discharge Planning Comments: CM met with patient at bedside after explaining CM role and obtaining verbal consent. CM discussed availability / needs of home health, REHAB and medical equipment. SHE WILL NEED HH AND AN IV INFUSION COMPANY AT DISCHARGE. JUAN CARLOS SIGNED FOR [facility]. I AM FAXING REFERRAL TODAY TO ANTICIPATE AND MONDAY OR MON DISCHARGE. CM WILL FOLLOW AND ASSIST NEEDED. Health Tech: Molly Hernandez DCPIA - Discharge Planning Initial Assessment Updated by [email or web address]: Molly Hernandez on 11/13/19 12:11 pm * Is the patient Alert and Oriented? Yes * PCP FAYE * Preadmission Environment Home Alone * ADLs Independent * Other Equipment SHOWER CHAIR, CPAP * List name and contact numbers for known caregivers / representatives who currently or will assist patient after discharge: PENNIE GRIER * Community resources currently utilized None * Additional services required to return to the preadmission environment? Yes * Can the patient safely return to the preadmission environment? Yes * Has this patient been hospitalized within the prior 30 days at any hospital? No Coverage Notice Reviewer: [id number] - Molly Hernandez Notice Issued Date-Time: 11/13/2019 12:13 Notice Type: Patient Choice Letter Notice Delivered To: Relationship to Patient: Dive Superintendent Name: Delivery Method: HAND - Hand Delivered Etelvina Days: Prior Verbal Notification: Recipient Understood Notice: Yes Recipient Signature: Yes Med Rec Note Co-signed by Attending: Coverage Notice Comment: [facility] Last DP export: 11/15/19 8:19 am Patient Name: RABIA MORENO Page [phone] at 1521 All edits/amendments must be made on the electronic document DICTATION DATE: 11/15/19 152 CLIMATE CHANGE ANALYST: RITA 11/15/19 152 RPT#: [id number] DC DATE: STATUS: ADM IN [facility] [address] [place] [address] END OF REPORT
[2019-11-15 16:00] VITALS: BP 151/51
--- NOTE | 2019-11-15 16:38 | NUR ---
PT RESTING WITH EYES CLOSED UPON ENTERING. AROUSES EASILY TO VOICE. PT AMBULATED TO THE BATHROOM AND BACK WITH EASE WHILE IN ROOM. MEDICATION ADMINISTERED. BLOOD SUGAR ASSESSED. 12 UNITS OF INSULIN GIVEN PER SLIDING SCALE FOR SUGAR OF 204. AID IN ROOM, VITALS ASSESSED. VSS. DENIES ANY NEEDS. RESTING COMFORTABLY. WILL CONTINUE TO MONITOR.
--- NOTE | 2019-11-15 17:41 | NUR ---
I have reviewed this patient and I concur with the Shift Assessment completed by the Licensed Practical Nurse today this shift.
[2019-11-15 20:00] VITALS: BP 127/55
--- NOTE | 2019-11-15 20:00 | NUR ---
PATIENT IN BED WITH EYES CLOSED. NO S/S OF ACUTE DISTRESS. NO C/O AT THIS TIME. PATEINT IS ON 2L PRN NASAL CANNULA. PATIENT HAS A RIGHT UPPER MIDLINE, NORMAL SALINE @ 75 ML/HR. IV IS PATENT WITHOUT REDNESS, SWELLING, OR TENDERNESS, DRESSING C/D/I. PATIENT IS UP ADLIB TO THE BATHROOM. CALL LIGHT WITHIN REACH. WILL CONTINUE TO MONITOR.
--- NOTE | 2019-11-16 00:11 | NUR ---
I have reviewed this patient and I concur with the Shift Assessment completed by the Licensed Practical Nurse today this shift.
[2019-11-16 04:00] VITALS: BP 155/73
--- NOTE | 2019-11-16 08:19 | NUR ---
resting in bed, no distress noted, o2 per nc, iv infusing per midline, cont to monitor temps and pain
[2019-11-16 10:53] VITALS: BP 148/55
[2019-11-16 12:54] LABS: BASOPHILS 0.2 % (0-2); EOSINOPHILS 1.9 % (0-7); HEMATOCRIT 34.7 % (36.0-48.0); HEMOGLOBIN 10.5 g/dL (12-16); IMMATURE GRANULOCYTES 0.8 % (0-5); LYMPHOCYTES 27.4 % (15-50); MCH 28.7 pg (26.0-34.0); MCHC 30.3 g/dL (31.0-37.0); MCV 94.8 fL (80.0-100.0); MEAN PLATELET VOLUME 9.3 fL (7.4-10.4); MONOCYTES 9.8 % (2-11); NEUTROPHILS 59.9 % (40-80); RBC 3.66 10x6/uL (4.00-5.40); RDW 14.1 % (11.5-14.5); WBC 9.2 10x3/uL (4.8-10.8)
[2019-11-16 13:03] LABS: ALBUMIN 3.1 g/dL (3.4-5.0); ANION GAP 13.3 mmol/L (8-16); BILIRUBIN - TOTAL 0.2 mg/dL (0.2-1.3); CALCIUM 8.3 mg/dL (8.5-10.1); CARBON DIOXIDE 27.7 mmol/L (21.0-32.0); CREATININE - SERUM 1.2 mg/dL (0.6-1.3); PROTEIN - SERUM 6.3 g/dL (6.4-8.2)
[2019-11-16 13:19] LABS: PLATELET COUNT 141 10x3/uL (130-400)
[2019-11-16 13:38] VITALS: BP 116/43
[2019-11-16 17:25] VITALS: BP 112/56
[2019-11-16 20:00] VITALS: BP 132/65
--- NOTE | 2019-11-16 20:00 | NUR ---
PATIENT RESTING IN BED WATCHING TV. NO S/S OF ACUTE DISTRESS. NO C/O AT THIS TIME. PATIENT HAS 2L NASAL CANNULA PRN. PATIENT HAS RIGHT UPPER ARM MIDLINE, NORMAL SALINE @ 75 ML/HR. IV IS PATENT WITHOUT REDNESS, SWELLING, OR TENDERNESS, AND DRESSING IS C/D/I. PATIENT IS UP ADLIB TO THE RESTROOM. CALL LIGHT IN PLACE. WILL CONTINUE TO MONITOR.
[2019-11-17] VITALS: BP 144/74
--- NOTE | 2019-11-17 01:36 | NUR ---
I have reviewed this patient and I concur with the Shift Assessment completed by the Licensed Practical Nurse today this shift.
--- NOTE | 2019-11-17 03:10 | NUR ---
PATIENT STATED THAT SHE WANTED ME TO LOOK AT HER MIDLINE. UPON INSPECTION HER ARM IS INDEED SWOLLEN SIGNIFICANTLY FROM THE OTHER. NO REDNESS OR HEAT IN THE ARM BUT THE SKIN IS TIGHT. NORMAL SALINE WAS STOPPED AND SWAB CAP IS IN PLACE. SOCORRO Mora VASCULAR ACCESS NURSE SAID THAT SHE WOULD COME AND LOOK AT IT. HOLDING NAY FURTHER IV MEDICATIONS UNTIL THEN. CALL LIGHT WITHIN REAC. WILL CONTINUE TO MONITOR.
--- NOTE | 2019-11-17 03:29 | NUR ---
VASCULAR ACCESS NURSE, SOCORRO. PATIENT ARM WHEN MIDLINE WAS PLACE MEASURED AT 42 CM. PATIENT'S ARM NOW MEASURED AT 45 CM. TRISH DECIDED THAT MILDINE NEEDED TO BE TAKEN OUT. TRISH IS GOING TO TRY AND PLACE ANOTHER MIDLINE. CALL LIGHT WITHIN REACH. WILL CONTINUE TO MONITOR.
[2019-11-17 04:00] VITALS: BP 120/58
--- NOTE | 2019-11-17 04:15 | NUR ---
PATIENT MIDLINE TAKEN OUT BY RICARDO WHITTINGTON. CATHETER TIP INTACT. MINIMAL BLEEDING AND 2X4 AND TAP APPLIED. CALL LIGHT WITHIN REACH. WILL CONTINUE TO MONITOR.
--- NOTE | 2019-11-17 04:20 | NUR ---
VASCULAR ACCESSNURSE, SOCORRO, WAS UNABLE TO PLACE ANOTHER MIDLINE. SOCORRO DID PLACE A 22G IN LEFT HAND TO UNTIL MONDAY. CALL LIGHT WITHIN REACH. WILL CONTINUE TO MONITOR.
[2019-11-17 06:46] LABS: ANION GAP 9.7 mmol/L (8-16); CALCIUM 8.5 mg/dL (8.5-10.1); CARBON DIOXIDE 28.4 mmol/L (21.0-32.0); MAGNESIUM - SERUM 1.9 mg/dL (1.8-2.4); PHOSPHOROUS 3.1 mg/dL (2.5-4.9)
[2019-11-17 06:47] LABS: POTASSIUM - SERUM 4.1 mmol/L (3.5-5.1)
[2019-11-17 06:55] LABS: BASOPHILS 0.2 % (0-2); EOSINOPHILS 2.5 % (0-7); HEMATOCRIT 32.4 % (36.0-48.0); HEMOGLOBIN 9.8 g/dL (12-16); IMMATURE GRANULOCYTES 0.5 % (0-5); LYMPHOCYTES 30.3 % (15-50); MCH 28.2 pg (26.0-34.0); MCHC 30.2 g/dL (31.0-37.0); MCV 93.4 fL (80.0-100.0); MEAN PLATELET VOLUME 9.4 fL (7.4-10.4); MONOCYTES 8.1 % (2-11); NEUTROPHILS 58.4 % (40-80); PLATELET COUNT 148 10x3/uL (130-400); RBC 3.47 10x6/uL (4.00-5.40); RDW 14.1 % (11.5-14.5); WBC 8.4 10x3/uL (4.8-10.8)
--- NOTE | 2019-11-17 08:00 | NUR ---
AWAKE BUT LETHARGIC WITH GENERALIZED EDEMA NOTED TO LEFT EXTERAL CANAL OF LEFT EAR. IV RESARTED TO LEFT F/A WITH NO S/S OF INFECTION/INFILTRATION. RESP EVEN AND UNLABORED. PATIENT VERBALIZED UNDERSTANDING OF FALL RISK AND SIGNED WAIVER. UP ADLIB. DENIES ANY PAIN OR DISCOMFORT AT THIS TIME. ABX GIVEN TOPICAL AND IV.
[2019-11-17 08:03] VITALS: BP 146/58
[2019-11-17 12:18] VITALS: BP 155/64
[2019-11-17 16:25] VITALS: BP 129/58
[2019-11-17 20:00] VITALS: BP 137/63
--- NOTE | 2019-11-17 22:35 | NUR ---
AWAKE ALERT. COMPLAITNS OF PAIN TO LEFT EAR WITH PERCOCET 10 MG GIVEN PER REQUEST WITH EFFECTIVE RELIEF NOTED. CL IN REACH
[2019-11-18] VITALS: BP 147/68
[2019-11-18 04:00] VITALS: BP 120/72
[2019-11-18 05:52] LABS: BASOPHILS 0.2 % (0-2); EOSINOPHILS 2.4 % (0-7); HEMATOCRIT 32.3 % (36.0-48.0); HEMOGLOBIN 9.8 g/dL (12-16); IMMATURE GRANULOCYTES 0.3 % (0-5); LYMPHOCYTES 31.9 % (15-50); MCH 28.3 pg (26.0-34.0); MCHC 30.3 g/dL (31.0-37.0); MCV 93.4 fL (80.0-100.0); MEAN PLATELET VOLUME 9.1 fL (7.4-10.4); MONOCYTES 7.7 % (2-11); NEUTROPHILS 57.5 % (40-80); PLATELET COUNT 151 10x3/uL (130-400); RBC 3.46 10x6/uL (4.00-5.40); RDW 14.3 % (11.5-14.5); WBC 9.3 10x3/uL (4.8-10.8)
[2019-11-18 05:59] LABS: ANION GAP 7.3 mmol/L (8-16); CALCIUM 8.4 mg/dL (8.5-10.1); CARBON DIOXIDE 31.8 mmol/L (21.0-32.0); MAGNESIUM - SERUM 1.9 mg/dL (1.8-2.4); PHOSPHOROUS 3.5 mg/dL (2.5-4.9); POTASSIUM - SERUM 4.1 mmol/L (3.5-5.1)
[2019-11-18 08:25] VITALS: BP 137/70
[2019-11-18 12:17] VITALS: BP 132/56
--- NOTE | 2019-11-18 12:56 | MORECARE ---
CASE MANAGEMENT DISCHARGE SUMMARY PATIENT: RABIA MORENO UNIT: [id number] ADM DATE: 11/09/19 AGE: 69 : 52 SEX: F ROOM/BED: D.2237 AUTHOR: MARIA C ENRIQUEZ PHYSICIAN: REFERRING PHYSICIAN: HUONG ALBA MD DATE OF SERVICE: 11/18/19 Discharge Plan Patient Name: RABIA MORENO Facility: [facility]:[place] : 1950 Planned Disposition: Home with Home Health and Infusion Serv Anticipated Discharge Date: Discharge Date: Expected LOS: Initial Reviewer: [id number] Initial Review Date: 11/13/2019 Generated: 11/18/19 1:56 pm Comments DCP- Discharge Planning Updated by [id number]: Molly Hernandez on 11/18/19 11:[address] Patient Name: RABIA MORENO Admission Status: ER Accout number: [id number] Admission Date: 11-09-2019 : 1950 Admission Diagnosis:OTALGIA, LEFT EAR Attending: CHRISTINA ALBA Current LOS: 9 Anticipated DC Date: Planned Disposition: Home with Home Health and Infusion Serv Primary Insurance: [facility] MEDICARE SOLUTIONS Discharge Planning Comments: I SPOKE WITH PENNIE AT HER INSURANCE COMPANY AND I AM WAITING CALL BACK TO SEE WHAT THEY RECOMEND REGARDING DISCHARGE. Clinical Support Nurse: Molly Hernandez DCP- Discharge Planning Updated by [id number]: Molly Hernandez on 11/15/19 2:[address] Patient Name: RABIA MORENO Admission Status: ER Accout number: [id number] Admission Date: 11-09-2019 : 1950 Admission Diagnosis:OTALGIA, LEFT EAR Attending: CHRISTINA ALBA Current LOS: 6 Anticipated DC Date: Planned Disposition: Home with Home Health and Infusion Serv Primary Insurance: [facility] MEDICARE SOLUTIONS Discharge Planning Comments: FAXED CLINICALS TO [facility] THIS MORNING.WAITING TO HEAR BACK TO SEE IF HER INSURANCE IS GOING TO COVER. [employer] [facility] CALLED ME BACK AND HER INSURANCE WILL NOT COVER EVERYTHING WITH THEM. I WILL CONTINUE TO FOLLOW AND ASSIST NEEDED. Clinical Support Nurse: Molly Hernandez Appended by Molly Hernandez on 11/15/2019 15:14 CDT: WITH [employer] SHE WILL HAVE OUT OF POCKET $207.20. I SPOKE WITH HER ABOUT THIS AND SHE SAYS SHE HAS NO EXTRA MONEY TO SET UP PAYMENT PLAN WITH THEM. I SPOKE BRIEFLY WITH HER ABOUT [facility] FACILITIES FOR HER IV INFUSIONS. SHE IS THINKING ABOUT IT, I REALLY DON'T THINK SHE WILL AGREE TO SNF BUT I WILL CHECK BACK WITH HER LATER TODAY. DCP- Discharge Planning Updated by [id number]: Molly Mary on 11/13/19 11:[address] Patient Name: RABIA MORENO Admission Status: ER Accout number: [id number] Admission Date: 11-09-2019 : 1950 Admission Diagnosis:OTALGIA, LEFT EAR Attending: CHRISTINA ALBA Current LOS: 4 Anticipated DC Date: Planned Disposition: Home with Home Health and Infusion Serv Primary Insurance: [facility] MEDICARE SOLUTIONS Discharge Planning Comments: CM met with patient at bedside after explaining CM role and obtaining verbal consent. CM discussed availability / needs of home health, REHAB and medical equipment. SHE WILL NEED HH AND AN IV INFUSION COMPANY AT DISCHARGE. JUAN CARLOS SIGNED FOR [facility] AND [facility]. I AM FAXING REFERRAL TODAY TO ANTICIPATE AND MONDAY OR SAT DISCHARGE. CM WILL FOLLOW AND ASSIST NEEDED. Clinical Support Nurse: Molly Hernandez DCPIA - Discharge Planning Initial Assessment Updated by [id number]: Mollysteve Hernandez on 11/13/19 12:11 pm * Is the patient Alert and Oriented? Yes * PCP FAYE * Preadmission Environment Home Alone * ADLs Independent * Other Equipment SHOWER CHAIR, CPAP * List name and contact numbers for known caregivers / representatives who currently or will assist patient after discharge: PENNIE GRIER * Community resources currently utilized None * Additional services required to return to the preadmission environment? Yes * Can the patient safely return to the preadmission environment? Yes * Has this patient been hospitalized within the prior 30 days at any hospital? 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
--- NOTE | 2019-11-18 15:11 | MORECARE ---
CASE MANAGEMENT DISCHARGE SUMMARY PATIENT: RABIA MORENO UNIT: [id number] ADM DATE: 11/09/19 AGE: 69 : 52 SEX: F ROOM/BED: D.2237 AUTHOR: MARIA C ENRIQUEZ PHYSICIAN: REFERRING PHYSICIAN: HUONG ALBA MD DATE OF SERVICE: 11/18/19 Discharge Plan Patient Name: RABIA MORENO Facility: [facility]:[place] : 1950 Planned Disposition: Home with Home Health and Infusion Serv Anticipated Discharge Date: Discharge Date: Expected LOS: Initial Reviewer: [id number] Initial Review Date: 11/13/2019 Generated: 11/18/19 4:10 pm Comments DCP- Discharge Planning Updated by [id number]: Molly Hernandez on 11/18/19 2:[address] Patient Name: RABIA MORENO Admission Status: ER Accout number: [id number] Admission Date: 11-09-2019 : 1950 Admission Diagnosis:OTALGIA, LEFT EAR Attending: CHRISTINA ALBA Current LOS: 9 Anticipated DC Date: Planned Disposition: Home with Home Health and Infusion Serv Primary Insurance: [facility] MEDICARE SOLUTIONS Discharge Planning Comments: I SPOKE WITH PATIENT AND SHE WOULD BE WILLING TO SET UP PAYMENT PLAN WITH IV INFUSION COMPANY IF NEEDED. [facility]ED AND [facility] , ANTICIPATE DISCHARGE NEXT DAY OR SO WHEN STABLE BY DOCTOR AND ONCE HH AND IV INFUSION SERVICES ARE CONFIRMED. 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 Stars Specialist: Molly Hernandez DCP- Discharge Planning Updated by [id number]: Molly Hernandez on 11/18/19 11:[address] Patient Name: RABIA MORENO Admission Status: ER Accout number: [id number] Admission Date: 11-09-2019 : 1950 Admission Diagnosis:OTALGIA, LEFT EAR Attending: CHRISTINA ALBA Current LOS: 9 Anticipated DC Date: Planned Disposition: Home with Home Health and Infusion Serv Primary Insurance: [facility] MEDICARE SOLUTIONS Discharge Planning Comments: I SPOKE WITH PENNIE AT HER INSURANCE COMPANY AND I AM WAITING CALL BACK TO SEE WHAT THEY RECOMEND REGARDING DISCHARGE. Stars Specialist: Molly Hernandez DCP- Discharge Planning Updated by [email or web address]: Molly Hernandez on 11/15/19 2:[address] Patient Name: RBAIA MORENO Admission Status: ER Accout number: [id number] Admission Date: 11-09-2019 : 1950 Admission Diagnosis:OTALGIA, LEFT EAR Attending: CHRISTINA ALBA Current LOS: 6 Anticipated DC Date: Planned Disposition: Home with Home Health and Infusion Serv Primary Insurance: [facility] MEDICARE SOLUTIONS Discharge Planning Comments: FAXED CLINICALS TO [facility] THIS MORNING.WAITING TO HEAR BACK TO SEE IF HER INSURANCE IS GOING TO COVER. [employer] [facility] CALLED ME BACK AND HER INSURANCE WILL NOT COVER EVERYTHING WITH THEM. I WILL CONTINUE TO FOLLOW AND ASSIST NEEDED. Stars Specialist: Molly Hernandez Appended by Molly Hernandez on 11/15/2019 15:14 CDT: WITH [employer] SHE WILL HAVE OUT OF POCKET $207.20. I SPOKE WITH HER ABOUT THIS AND SHE SAYS SHE HAS NO EXTRA MONEY TO SET UP PAYMENT PLAN WITH THEM. I SPOKE BRIEFLY WITH HER ABOUT ALF FACILITIES FOR HER IV INFUSIONS. SHE IS THINKING ABOUT IT, I REALLY DON'T THINK SHE WILL AGREE TO SNF BUT I WILL CHECK BACK WITH HER LATER TODAY. DCP- Discharge Planning Updated by [id number]: Molly Mary on 11/13/19 11:[address] Patient Name: RABIA MORENO Admission Status: ER Accout number: [id number] Admission Date: 11-09-2019 : 1950 Admission Diagnosis:OTALGIA, LEFT EAR Attending: CHRISTINA ALBA Current LOS: 4 Anticipated DC Date: Planned Disposition: Home with Home Health and Infusion Serv Primary Insurance: [facility] MEDICARE SOLUTIONS Discharge Planning Comments: CM met with patient at bedside after explaining CM role and obtaining verbal consent. CM discussed availability / needs of home health, REHAB and medical equipment. SHE WILL NEED HH AND AN IV INFUSION COMPANY AT DISCHARGE. JUAN CARLOS SIGNED FOR [facility] AND [facility]. I AM FAXING REFERRAL TODAY TO ANTICIPATE AND MONDAY OR SAT DISCHARGE. CM WILL FOLLOW AND ASSIST NEEDED. Stars Specialist: Molly Hernandez DCPIA - Discharge Planning Initial Assessment Updated by [email or web address]: Molly Hernandez on 11/13/19 12:11 pm * Is the patient Alert and Oriented? Yes * PCP FAYE * Preadmission Environment Home Alone * ADLs Independent * Other Equipment SHOWER CHAIR, CPAP * List name and contact numbers for known caregivers / representatives who currently or will assist patient after discharge: PENNIE GRIER * Community resources currently utilized None * Additional services required to return to the preadmission environment? Yes * Can the patient safely return to the preadmission environment? Yes * Has this patient been hospitalized within the prior 30 days at any hospital? 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
--- NOTE | 2019-11-18 15:13 | NUR ---
Nutrition follow-up: Pt receiving a diabetic diet PO intake ~75% of meals, snacks Labs: Glucose under fair to good control Wt: 199# Pt with no issues with meals at this time RDN following.
--- NOTE | 2019-11-18 15:13 | NUR ---
OT NOTE: ATTEMPTED OT EVAL TODAY, HOWEVER, PT VERY AGITATED. PT STATED THAT SHE CAN DO ANYTHING ( IE GET UP TO BATHROOM, WALK AROUND, ETC) BUT THAT SHE REFUSED TO DO ANYTHING RIGHT NOW UNTIL SOMEONE CAN GIVE HER SOMETHING FOR THE PAIN IN HER THROAT. SHE STATES THAT SHE HAS HAD THIS PAIN FOR 2 MOS AND SHE NEEDS ANSWERS.. PLEASE RECONSULT OT IF FURTHER NEEDS APPEAR. THANK YOU , GLORIA MUNROE, OTR/L
--- NOTE | 2019-11-18 15:48 | MORECARE ---
CASE MANAGEMENT DISCHARGE SUMMARY PATIENT: RABIA MORENO UNIT: [id number] ADM DATE: 11/09/19 AGE: 69 : 52 SEX: F ROOM/BED: D.2237 AUTHOR: ZOE,DOC PHYSICIAN: REFERRING PHYSICIAN: HUONG ALBA MD DATE OF SERVICE: 11/18/19 Discharge Plan Patient Name: RABIA MORENO Facility: [facility]:[place] : 1950 Planned Disposition: Home with Home Health and Infusion Serv Anticipated Discharge Date: Discharge Date: Expected LOS: Initial Reviewer: [id number] Initial Review Date: 11/13/2019 Generated: 11/18/19 4:47 pm Comments DCP- Discharge Planning Updated by [id number]: Molly Hernandez on 11/18/19 2:[address] Patient Name: RABIA MORENO Admission Status: ER Accout number: [id number] Admission Date: 11-09-2019 : 1950 Admission Diagnosis:OTALGIA, LEFT EAR Attending: CHRISTINA ALBA Current LOS: 9 Anticipated DC Date: Planned Disposition: Home with Home Health and Infusion Serv Primary Insurance: [facility] MEDICARE SOLUTIONS Discharge Planning Comments: I SPOKE WITH PATIENT AND SHE WOULD BE WILLING TO SET UP PAYMENT PLAN WITH IV INFUSION COMPANY IF NEEDED. [facility]ED [facility] , ANTICIPATE DISCHARGE NEXT DAY OR SO WHEN STABLE BY DOCTOR AND ONCE HH AND IV INFUSION SERVICES ARE CONFIRMED. 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 Crown Presser: Molly Hernandez Appended by Molly Hernandez on 11/18/2019 15:45 CDT: UPDATES FAXED TO [facility] . RECEIVED CALL BACK AND THEY ARE BOTH WORKING ON GETTING HER SET UP FOR POSSIBLE DC TOMORROW. DCP- Discharge Planning Updated by [id number]: Molly Hernandez on 11/18/19 11:[address] Patient Name: RABIA MORENO Admission Status: ER Accout number: [id number] Admission Date: 11-09-2019 : 1950 Admission Diagnosis:OTALGIA, LEFT EAR Attending: CHRISTINA ALBA Current LOS: 9 Anticipated DC Date: Planned Disposition: Home with Home Health and Infusion Serv Primary Insurance: [facility] MEDICARE SOLUTIONS Discharge Planning Comments: I SPOKE WITH PENNIE AT HER INSURANCE COMPANY AND I AM WAITING CALL BACK TO SEE WHAT THEY RECOMEND REGARDING DISCHARGE. Crown Presser: Molly Mary DCP- Discharge Planning Updated by [id number]: Molly Hernandze on 11/15/19 2:[address] Patient Name: RABIA MORENO Admission Status: ER Accout number: [id number] Admission Date: 11-09-2019 : 1950 Admission Diagnosis:OTALGIA, LEFT EAR Attending: CHRISTINA ALBA Current LOS: 6 Anticipated DC Date: Planned Disposition: Home with Home Health and Infusion Serv Primary Insurance: [facility] MEDICARE SOLUTIONS Discharge Planning Comments: FAXED CLINICALS TO [facility] THIS MORNING.WAITING TO HEAR BACK TO SEE IF HER INSURANCE IS GOING TO COVER. [employer] [facility] CALLED ME BACK AND HER INSURANCE WILL NOT COVER EVERYTHING WITH THEM. I WILL CONTINUE TO FOLLOW AND ASSIST NEEDED. Crown Presser: Molly Mary Appended by Molly Mary on 11/15/2019 15:14 CDT: WITH [employer] SHE WILL HAVE OUT OF POCKET $207.20. I SPOKE WITH HER ABOUT THIS AND SHE SAYS SHE HAS NO EXTRA MONEY TO SET UP PAYMENT PLAN WITH THEM. I SPOKE BRIEFLY WITH HER ABOUT [facility] FACILITIES FOR HER IV INFUSIONS. SHE IS THINKING ABOUT IT, I REALLY DON'T THINK SHE WILL AGREE TO SNF BUT I WILL CHECK BACK WITH HER LATER TODAY. DCP- Discharge Planning Updated by [id number]: Molly Hernandez on 11/13/19 11:[address] Patient Name: RABIA MORENO Admission Status: ER Accout number: [id number] Admission Date: 11-09-2019 : 1950 Admission Diagnosis:OTALGIA, LEFT EAR Attending: CHRISTINA ALBA Current LOS: 4 Anticipated DC Date: Planned Disposition: Home with Home Health and Infusion Serv Primary Insurance: [facility] MEDICARE SOLUTIONS Discharge Planning Comments: CM met with patient at bedside after explaining CM role and obtaining verbal consent. CM discussed availability / needs of home health, REHAB and medical equipment. SHE WILL NEED HH AND AN IV INFUSION COMPANY AT DISCHARGE. JUAN CARLOS SIGNED FOR [facility] AND [facility]. I AM FAXING REFERRAL TODAY TO ANTICIPATE AND MONDAY OR MON DISCHARGE. CM WILL FOLLOW AND ASSIST NEEDED. Crown Presser: Molly Hernandez DCPIA - Discharge Planning Initial Assessment Updated by [email or web address]: Molly Hernandez on 11/13/19 12:11 pm * Is the patient Alert and Oriented? Yes * PCP FAYE * Preadmission Environment Home Alone * ADLs Independent * Other Equipment SHOWER CHAIR, CPAP * List name and contact numbers for known caregivers / representatives who currently or will assist patient after discharge: PENNIE MARVEL * Community resources currently utilized None * Additional services required to return to the preadmission environment? Yes * Can the patient safely return to the preadmission environment? Yes * Has this patient been hospitalized within the prior 30 days at any hospital? No Coverage Notice Reviewer: [id number] Ara Hernandez Notice Issued Date-Time: 11/13/2019 12:13 Notice Type: Patient Choice Letter Notice Delivered To: Relationship to Patient: Executive Associate Name: Delivery Method: HAND - Hand Delivered Etelvina Days: Prior Verbal Notification: Recipient Understood Notice: Yes Recipient Signature: Yes Med Rec Note Co-signed by Attending: Coverage Notice Comment: [facility] Last DP export: 11/18/19 2:11 pm Patient Name: RABIA MORENO Page [id number] at 1548 All edits/amendments must be made on the electronic document DICTATION DATE: 11/18/191546 BREAKFAST HOST: RITA 11/18/191546 RPT#: [id number] DC DATE: STATUS: ADM IN [facility] [address] [place] [address] END OF REPORT
[2019-11-18 16:59] VITALS: BP 123/61
--- NOTE | 2019-11-18 18:50 | NUR ---
I have reviewed this patient and I concur with the Shift Assessment completed by the Licensed Practical Nurse today this shift.
--- NOTE | 2019-11-18 18:52 | NUR ---
REC'D IN SITTING ON THE SIDE OF BED AWAKE AND ALERT. RESP EVEN AND UNLABORED WITH NO DISTRESS NOTED. CAN EXPRESS NEEDS AND WANTS. NO C/O NOTED OR VOICED AT THIS TIME. UP AB KVNG. ASSESSMENT COMPLETED. C/L IN REACH AT BEDSIDE.
[2019-11-18 20:38] VITALS: BP 141/58
[2019-11-19] VITALS: BP 137/59
[2019-11-19 04:48] VITALS: BP 152/69
[2019-11-19 05:04] LABS: BASOPHILS 0.3 % (0-2); HEMATOCRIT 30.9 % (36.0-48.0); HEMOGLOBIN 9.2 g/dL (12-16); IMMATURE GRANULOCYTES 0.4 % (0-5); LYMPHOCYTES 24.3 % (15-50); MCHC 29.8 g/dL (31.0-37.0); MCV 94.2 fL (80.0-100.0); MEAN PLATELET VOLUME 9.5 fL (7.4-10.4); MONOCYTES 8.3 % (2-11); NEUTROPHILS 64.7 % (40-80); PLATELET COUNT 167 10x3/uL (130-400); RBC 3.28 10x6/uL (4.00-5.40); RDW 14.3 % (11.5-14.5); WBC 10.5 10x3/uL (4.8-10.8)
[2019-11-19 05:35] LABS: ANION GAP 5.6 mmol/L (8-16); CALCIUM 8.2 mg/dL (8.5-10.1); CARBON DIOXIDE 33.6 mmol/L (21.0-32.0); MAGNESIUM - SERUM 1.7 mg/dL (1.8-2.4); PHOSPHOROUS 4.1 mg/dL (2.5-4.9); POTASSIUM - SERUM 4.2 mmol/L (3.5-5.1)
[2019-11-19 05:37] LABS: CREATININE - SERUM 1.3 mg/dL (0.6-1.3)
--- NOTE | 2019-11-19 07:05 | NUR ---
ALERT AND ORIENTED. C/O PAIN, UNABLE TO GIVE PAIN MEDICINE AT THIS TIME D/T NOT TIME YET. IV TO LEFT FOREARM, NS INFUSING @ 75ML/HR. SITE PATENT WITHOUT REDNESS OR SWELLING. MAG 1.7 THIS AM, WILL FOLLOW ELECTROLYTE PROTOCOL. DENIES ANY NEEDS AT THIS TIME. PATIENT VERY UPSET THAT PAIN MEDICINE WAS NOT GIVEN AT 0700. THIS NURSE INFORMED PATIENT THAT THE NEXT TIME DILAUDID IS AVAILABLE IS AT 0800 AND WOULD BRING IT TO PATIENT THEN. CALL LIGHT IN REACH. WILL CONTINUE TO MONITOR.
[2019-11-19 08:33] VITALS: BP 137/50
[2019-11-19 12:51] VITALS: BP 136/65
[2019-11-19 16:00] VITALS: BP 156/65
--- NOTE | 2019-11-19 18:37 | NUR ---
I have reviewed this patient and I concur with the Shift Assessment completed by the Licensed Practical Nurse today this shift.
--- NOTE | 2019-11-19 18:50 | NUR ---
ALERT AND ORIENTED. NO C/O PAIN. NO S/S OF ACUTE DISTRESS NOTED. DENIES ANY NEEDS AT THIS TIME. CALL LIGHT IN REACH. WILL CONTINUE TO MONITOR.
--- NOTE | 2019-11-19 20:00 | NUR ---
PT DOES NOT WANT MIDNIGHT BLOODSUGAR TO BE CHECKED. STATES SHE WISHES TO NOT BE BOTHERED IF SHE'D SLEEPING, SHE ONLY WANTS HER SUGARS CHECKED ACHS. WILL CONTINUE TO MONITOR.
[2019-11-19 21:15] VITALS: BP 151/55
--- NOTE | 2019-11-20 02:47 | NUR ---
I have reviewed this patient and I concur with the Shift Assessment completed by the Licensed Practical Nurse today this shift.
[2019-11-20 06:22] VITALS: BP 141/62
--- NOTE | 2019-11-20 06:45 | NUR ---
ALERT AND ORIENTED. PATIENT VERY AGITATED THIS AM. PATIENT WANTS HER FSBS TO BE ACHS AND WANTS TO BE GIVEN INSULIN EVEN IF SHE IS BELOW 150 ON BLOOD SUGARS. PATIENT WANTS TO HAVE PAIN MEDS ADJUSTED TO DILAUDID 2MG PO Q4 HOURS, INSTEAD OF THE Q6 HOURS AND WOULD LIKE TO HAVE THE IV DILAUDID DC. THIS NURSE EXPLAINED TO PATIENT THAT THIS NURSE WOULD INFORM PHYSICIAN OF HER REQUESTS. NO C/O PAIN. NO S/S OF ACUTE DISTRESS NOTED. IV TO LEFT FOREARM, NS INFUSING @ 75ML/HR. SITE PATENT WITHOUT REDNESS OR SWELLING. PATIENT REQUESTS MORE TEACHING ON HOW TO PREPARE ANTIBIOTICS AT HOME, STATES THAT [employer] DID NOT EXPLAIN IT WELL ENOUGH FOR HER. THIS NURSE WILL LET CASE MANAGEMENT KNOW. DENIES ANYTHING FURTHER AT THIS TIME. CALL LIGHT IN REACH. WILL CONTINUE TO MONITOR.
[2019-11-20 06:56] LABS: BASOPHILS 0.2 % (0-2); HEMATOCRIT 35.9 % (36.0-48.0); HEMOGLOBIN 10.6 g/dL (12-16); IMMATURE GRANULOCYTES 0.4 % (0-5); LYMPHOCYTES 19.7 % (15-50); MCHC 29.5 g/dL (31.0-37.0); MEAN PLATELET VOLUME 9.2 fL (7.4-10.4); MONOCYTES 7.7 % (2-11); PLATELET COUNT 178 10x3/uL (130-400); RBC 3.78 10x6/uL (4.00-5.40); RDW 14.5 % (11.5-14.5); WBC 9.6 10x3/uL (4.8-10.8)
[2019-11-20 07:15] LABS: ANION GAP 9.4 mmol/L (8-16); CALCIUM 8.8 mg/dL (8.5-10.1); CARBON DIOXIDE 32.7 mmol/L (21.0-32.0); CREATININE - SERUM 0.9 mg/dL (0.6-1.3); MAGNESIUM - SERUM 1.9 mg/dL (1.8-2.4); PHOSPHOROUS 4.1 mg/dL (2.5-4.9); POTASSIUM - SERUM 4.1 mmol/L (3.5-5.1)
[2019-11-20 08:17] VITALS: BP 131/61
[2019-11-20] MEDS ORDERED: [UNRECOGNIZED DRUG - OTHER] IV (13:24)
[2019-11-20] MEDS ORDERED: NYSTATIN100000 UN4 PO (13:24)
[2019-11-20] MEDS ORDERED: CIPRO500 MG PO (13:24)
[2019-11-20] MEDS ORDERED: FORTAZ IV (13:24)
[2019-11-20] MEDS ORDERED: CILOXAN5 ML OT (13:26)
[2019-11-20] MEDS ORDERED: LANTUS INS100 UNITS/ SC (13:27)
[2019-11-20] MEDS ORDERED: DILAUDID2 MG PO (13:28)
[2019-11-20] MEDS ORDERED: HUMALOG 30100 UNITS/ SC (13:28)
--- NOTE | 2019-11-20 13:43 | MORECARE ---
CASE MANAGEMENT DISCHARGE SUMMARY PATIENT: RABIA MORENO UNIT: [id number] ADM DATE: 11/09/19 AGE: 69 : 52 SEX: F ROOM/BED: D.2237 AUTHOR: MARIA C ENRIQUEZ PHYSICIAN: REFERRING PHYSICIAN: HUONG ALBA MD DATE OF SERVICE: 11/20/19 Discharge Plan Patient Name: RABIA MORENO Facility: [facility]:[place] : 1950 Planned Disposition: Home with Home Health and Infusion Serv Anticipated Discharge Date: Discharge Date: Expected LOS: Initial Reviewer: [id number] Initial Review Date: 11/13/2019 Generated: 11/20/19 2:42 pm Comments DCP- Discharge Planning Updated by [id number]: Molly Hernandez on 11/20/19 12:[address] Patient Name: RABIA MORENO Admission Status: ER Accout number: [id number] Admission Date: 11-09-2019 : 1950 Admission Diagnosis:OTALGIA, LEFT EAR Attending: CHRISTINA ALBA Current LOS: 11 Anticipated DC Date: Planned Disposition: Home with Home Health and Infusion Serv Primary Insurance: [facility] MEDIC[facility] SOLUTIONS Discharge Planning Comments: ADRIANNA WHITTINGTON, WITH [facility] CAME YESTERDAY FOR TEACHING. PATIENT WAS REFUSING TO BE TAUGHT. I HAVE SPOKE WITH PATIENT TODAY ABOUT DC PLANS. SHE IS IN AGREEMENT TO DC TO HOME TODAY IF SHE AGREES WITH HER DC PAIN MEDICATION. [facility] CAN SEE THIS EVENING FOR HER EVENING DOSE BUT SHE REFUSES HH TO COME TO HER HOME TODAY BUT AGREES THEY CAN COME IN THE MORNING. HH IS SET UP TO GO TO HER HOUSE AT 8 AM IN THE MORNING. ANTICIPATE DC TODAY AND HH TO SEE IN THE MORNING AND START IV INFUSION. CM TO FOLLOW AND ACCEPT. Merchandise Pickup/Receiving Associate: Molly Hernandez DCP- Discharge Planning Updated by [id number]: Molly Hernandez on 11/18/19 2:[address] Patient Name: RABIA MORENO Admission Status: ER Accout number: [id number] Admission Date: 11-09-2019 : 1950 Admission Diagnosis:OTALGIA, LEFT EAR Attending: CHRISTINA ALBA Current LOS: 9 Anticipated DC Date: Planned Disposition: Home with Home Health and Infusion Serv Primary Insurance: [facility] [employer] SOLUTIONS Discharge Planning Comments: I SPOKE WITH PATIENT AND SHE WOULD BE WILLING TO SET UP PAYMENT PLAN WITH IV INFUSION COMPANY IF NEEDED. [facility] CONTA[facility]ED AND [facility], ANTICIPATE DISCHARGE NEXT DAY OR SO WHEN STABLE BY DOCTOR AND ONCE HH AND IV INFUSION SERVICES ARE CONFIRMED. WAITING BAKERY HELPER BACK FROM [facility] TODAY. Merchandise Pickup/Receiving Associate: Molly Hernandez Appended by Molly Hernandez on 11/18/2019 15:45 CDT: UPDATES FAXED TO [facility]. RECEIVED CALL BACK AND THEY ARE BOTH WORKING ON GETTING HER SET UP FOR POSSIBLE DC TOMORROW. DCP- Discharge Planning Updated by [id number]: Molly Hernandez on 11/18/19 11:[address] Patient Name: RABIA MORENO Admission Status: ER Accout number: [id number] Admission Date: 11-09-2019 : 1950 Admission Diagnosis:OTALGIA, LEFT EAR Attending: CHRISTINA ALAB Current LOS: 9 Anticipated DC Date: Planned Disposition: Home with Home Health and Infusion Serv Primary Insurance: [facility] [employer] [employer]UT[employer] Discharge Planning Comments: I SPOKE WITH PENNIE AT HER INSURANCE COMPANY AND I AM WAITING CALL BACK TO SEE WHAT THEY RECOMEND REGARDING DISCHARGE. Merchandise Pickup/Receiving Associate: Molly Hernandez DCP- Discharge Planning Updated by [id number]: Molly Hernandez on 11/15/19 2:[address] Patient Name: RABIA MORENO Admission Status: ER Accout number: [id number] Admission Date: 11-09-2019 : 1950 Admission Diagnosis:OTALGIA, LEFT EAR Attending: CHRISTINA ALBA Current LOS: 6 Anticipated DC Date: Planned Disposition: Home with Home Health and Infusion Serv Primary Insurance: [facility] [employer] SOLUTIONS Discharge Planning Comments: FAXED CLINICALS TO [facility] THIS MORNING.WAITING TO HEAR BACK TO SEE IF HER INSURANCE IS GOING TO COVER. [facility] CALLED ME BACK AND HER INSURANCE WILL NOT COVER EVERYTHING WITH THEM. I WILL CONTINUE TO FOLLOW AND ASSIST NEEDED. Merchandise Pickup/Receiving Associate: Molly Hernandez Appended by Molly Hernandez on 11/15/2019 15:14 CDT: WITH [facility] SHE WILL HAVE OUT OF POCKET $207.20. I SPOKE WITH HER ABOUT THIS AND SHE SAYS SHE HAS NO EXTRA MONEY TO SET UP PAYMENT PLAN WITH THEM. I SPOKE BRIEFLY WITH HER ABOUT SENIOR CARE FACILITIES FOR HER IV INFUSIONS. SHE IS THINKING ABOUT IT, I REALLY DON'T THINK SHE WILL AGREE TO SNF BUT I WILL CHECK BACK WITH HER LATER TODAY. DCP- Discharge Planning Updated by [id number]: Molly Mary on 11/13/19 11:[address] Patient Name: RABIA MORENO Admission Status: ER Accout number: [id number] Admission Date: 11-09-2019 : 1950 Admission Diagnosis:OTALGIA, LEFT EAR Attending: CHRISTINA ALBA Current LOS: 4 Anticipated DC Date: Planned Disposition: Home with Home Health and Infusion Serv Primary Insurance: [facility] [employer]UT[employer] Discharge Planning Comments: CM met with patient at bedside after explaining CM role and obtaining verbal consent. CM discussed availability / needs of home health, REHAB and medical equipment. SHE WILL NEED HH AND AN IV INFUSION COMPANY AT DISCHARGE. JUAN CARLOS SIGNED FOR [facility] AND [facility]. I AM FAXING REFERRAL TODAY TO ANTICIPATE AND MONDAY OR SAT DISCHARGE. CM WILL FOLLOW AND ASSIST NEEDED. Merchandise Pickup/Receiving Associate: Molly Hernandez DCPIA - Discharge Planning Initial Assessment Updated by [id number]: Mollysteve Hernandez on 11/13/19 12:11 pm * Is the patient Alert and Oriented? Yes * PCP FAYE * Preadmission Environment Home Alone * ADLs Independent * Other Equipment SHOWER CHAIR, CPAP * List name and contact numbers for known caregivers / representatives who currently or will assist patient after discharge: PENNIE GRIER * Community resources currently utilized None * Additional services required to return to the preadmission environment? Yes * Can the patient safely return to the preadmission environment? Yes * Has this patient been hospitalized within the prior 30 days at any hospital? No Coverage Notice Reviewer: [id number] - Molly Mary Notice Issued Date-Time: 11/13/2019 12:13 Notice Type: Patient Choice Letter Notice Delivered To: Relationship to Patient: Career Education Teacher Name: Delivery Method: HAND - Hand Delivered Etelvina Days: Prior Verbal Notification: Recipient Understood Notice: Yes Recipient Signature: Yes Med Rec Note Co-signed by Attending: Coverage Notice Comment: [facility] Last DP export: 11/18/19 2:48 pm Patient Name: ARBIA MORENO Page 56218 at 1343 All edits/amendments must be made on the electronic document DICTATION DATE: 11/20/191341 CIGARETTE EXAMINER: RITA 11/20/191341 RPT#: [id number] DC DATE: STATUS: ADM IN [facility] [address] [place] [address] END OF REPORT
--- NOTE | 2019-11-20 14:05 | NUR ---
I have reviewed this patient and I concur with the Shift Assessment completed by the Licensed Practical Nurse today this shift.
--- NOTE | 2019-11-20 14:53 | MORECARE ---
CASE MANAGEMENT DISCHARGE SUMMARY PATIENT: RABIA MORENO UNIT: [id number] ADM DATE: 11/09/19 AGE: 69 : 52 SEX: F ROOM/BED: D.2237 AUTHOR: MARIA C ENRIQUEZ PHYSICIAN: REFERRING PHYSICIAN: HUONG ALBA MD DATE OF SERVICE: 11/20/19 Discharge Plan Patient Name: RABIA MORENO Facility: [facility]:[place] : 1950 Planned Disposition: Home with Home Health and Infusion Serv Anticipated Discharge Date: Discharge Date: Expected LOS: Initial Reviewer: [id number] Initial Review Date: 11/13/2019 Generated: 11/20/19 3:53 pm Comments DCP- Discharge Planning Updated by [id number]: Molly Hernandez on 11/20/19 12:[address] Patient Name: RABIA MORENO Admission Status: ER Accout number: [id number] Admission Date: 11-09-2019 : 1950 Admission Diagnosis:OTALGIA, LEFT EAR Attending: CHRISTINA ALBA Current LOS: 11 Anticipated DC Date: Planned Disposition: Home with Home Health and Infusion Serv Primary Insurance: [facility] MEDIC[facility] SOLUTIONS Discharge Planning Comments: ADRIANNA WHITTINGTON, WITH [facility] CAME YESTERDAY FOR TEACHING. PATIENT WAS REFUSING TO BE TAUGHT. I HAVE SPOKE WITH PATIENT TODAY ABOUT DC PLANS. SHE IS IN AGREEMENT TO DC TO HOME TODAY IF SHE AGREES WITH HER DC PAIN MEDICATION. [facility] CAN SEE THIS EVENING FOR HER EVENING DOSE BUT SHE REFUSES HH TO COME TO HER HOME TODAY BUT AGREES THEY CAN COME IN THE MORNING. HH IS SET UP TO GO TO HER HOUSE AT 8 AM IN THE MORNING. ANTICIPATE DC TODAY AND HH TO SEE IN THE MORNING AND START IV INFUSION. CM TO FOLLOW AND ACCEPT. Sba Underwriter: Molly Hernandez DCP- Discharge Planning Updated by [id number]: Molly Hernandez on 11/18/19 2:[address] Patient Name: RABIA MORENO Admission Status: ER Accout number: [id number] Admission Date: 11-09-2019 : 1950 Admission Diagnosis:OTALGIA, LEFT EAR Attending: CHRISTINA ALBA Current LOS: 9 Anticipated DC Date: Planned Disposition: Home with Home Health and Infusion Serv Primary Insurance: [facility] MEDIC[facility] SOLUTIONS Discharge Planning Comments: I SPOKE WITH PATIENT AND SHE WOULD BE WILLING TO SET UP PAYMENT PLAN WITH IV INFUSION COMPANY IF NEEDED. [facility] CONTA[facility] AND [facility], ANTICIPATE DISCHARGE NEXT DAY OR SO WHEN STABLE BY DOCTOR AND ONCE HH AND IV INFUSION SERVICES ARE CONFIRMED. WAITING GRAINING PRESS OPERATOR BACK FROM [facility] TODAY. Sba Underwriter: Molly Hernandez Appended by Molly Hernandez on 11/18/2019 15:45 CDT: UPDATES FAXED TO [facility]. RECEIVED CALL BACK AND THEY ARE BOTH WORKING ON GETTING HER SET UP FOR POSSIBLE DC TOMORROW. DCP- Discharge Planning Updated by [id number]: Molly Hernandez on 11/18/19 11:[address] Patient Name: RABIA MORENO Admission Status: ER Accout number: [id number] Admission Date: 11-09-2019 : 1950 Admission Diagnosis:OTALGIA, LEFT EAR Attending: CHRISTINA ALBA Current LOS: 9 Anticipated DC Date: Planned Disposition: Home with Home Health and Infusion Serv Primary Insurance: [facility] MEDIC[facility] SOLUTIONS Discharge Planning Comments: I SPOKE WITH PENNIE AT HER INSURANCE COMPANY AND I AM WAITING CALL BACK TO SEE WHAT THEY RECOMEND REGARDING DISCHARGE. Sba Underwriter: Molly Hernandez DCP- Discharge Planning Updated by [id number]: Molly Hernandez on 11/15/19 2:[address] Patient Name: RABIA MORENO Admission Status: ER Accout number: [id number] Admission Date: 11-09-2019 : 1950 Admission Diagnosis:OTALGIA, LEFT EAR Attending: CHRISTINA ALBA Current LOS: 6 Anticipated DC Date: Planned Disposition: Home with Home Health and Infusion Serv Primary Insurance: [facility] MEDIC[facility] SOLUTIONS Discharge Planning Comments: FA[facility]ED CLINICALS [place] [facility] THIS MORNING.WAITING TO HEAR BACK TO SEE IF HER INSURANCE IS GOING TO COVER. [facility] CALLED ME BACK AND HER INSURANCE WILL NOT COVER EVERYTHING WITH THEM. I WILL CONTINUE TO FOLLOW AND ASSIST NEEDED. Sba Underwriter: Molly Hernandez Appended by Molly Hernandez on 11/15/2019 15:14 CDT: WITH [facility] SHE WILL HAVE OUT OF POCKET $207.20. I SPOKE WITH HER ABOUT THIS AND SHE SAYS SHE HAS NO EXTRA MONEY TO SET UP PAYMENT PLAN WITH THEM. I SPOKE BRIEFLY WITH HER ABOUT CARE HOME FACILITIES FOR HER IV INFUSIONS. SHE IS THINKING ABOUT IT, I REALLY DON'T THINK SHE WILL AGREE TO SNF BUT I WILL CHECK BACK WITH HER LATER TODAY. DCP- Discharge Planning Updated by [id number]: Molly Mary on 11/13/19 11:[address] Patient Name: RABIA MORENO Admission Status: ER Accout number: [id number] Admission Date: 11-09-2019 : 1950 Admission Diagnosis:OTALGIA, LEFT EAR Attending: CHRISTINA ALBA Current LOS: 4 Anticipated DC Date: Planned Disposition: Home with Home Health and Infusion Serv Primary Insurance: [facility] MEDICARE SOLUTIONS Discharge Planning Comments: CM met with patient at bedside after explaining CM role and obtaining verbal consent. CM discussed availability / needs of home health, REHAB and medical equipment. SHE WILL NEED HH AND AN IV INFUSION COMPANY AT DISCHARGE. JUAN CARLOS SIGNED FOR [facility] AND [facility]. I AM FAXING REFERRAL TODAY TO ANTICIPATE AND MONDAY OR SAT DISCHARGE. CM WILL FOLLOW AND ASSIST NEEDED. Sba Underwriter: Molly Hernandez DCPIA - Discharge Planning Initial Assessment Updated by [id number]: Mollysteve Hernandez on 11/13/19 12:11 pm * Is the patient Alert and Oriented? Yes * PCP FAYE * Preadmission Environment Home Alone * ADLs Independent * Other Equipment SHOWER CHAIR, CPAP * List name and contact numbers for known caregivers / representatives who currently or will assist patient after discharge: PENNIE GRIER * Community resources currently utilized None * Additional services required to return to the preadmission environment? Yes * Can the patient safely return to the preadmission environment? Yes * Has this patient been hospitalized within the prior 30 days at any hospital? No External Providers External Provider: Bibiana Next Contact Date: Service Request Date: Service Type: Resolution: Reviewer: Comments: Coverage Notice Reviewer: [id number] - Molly Hernandez Notice Issued Date-Time: 11/13/2019 12:13 Notice Type: Patient Choice Letter Notice Delivered To: Relationship to Patient: Claims Customer Service Representative Name: Delivery Method: HAND - Hand Delivered Etelvina Days: Prior Verbal Notification: Recipient Understood Notice: Yes Recipient Signature: Yes Med Rec Note Co-signed by Attending: Coverage Notice Comment: [facility] Last DP export: 11/20/19 12:43 p Patient Name: RABIA MORENO Page [phone] at 1453 All edits/amendments must be made on the electronic document DICTATION DATE: 11/20/191452 ANIMAL CYTOLOGIST: RITA 11/20/191452 RPT#: [id number] DC DATE: STATUS: ADM IN [facility] [address] [place] [address] END OF REPORT
[2019-11-20] MEDS ORDERED: HYDROCODON-ACE1 EA10 PO (15:13)
[2019-11-20] MEDS ORDERED: PHENERGAN25 M1 PO (15:13)
--- NOTE | 2019-11-20 16:04 | NUR ---
DISCHARGED PATIENT HOME WITH FAMILY. DISCONTINUED PERIPHERAL IV, CATHETER TIP INTACT. PICC LINE IN RIGHT UPPER ARM PATENT, SL. DRESSING C/D/I. WENT OVER DISCHARGE INSTRUCTIONS WITH PATIENT, VERBALIZED UNDERSTANDING. DENIES ANYTHING FURTHER.
--- NOTE | 2019-11-21 08:38 | MORECARE ---
CASE MANAGEMENT DISCHARGE SUMMARY PATIENT: RABIA MORENO UNIT: [id number] ADM DATE: 11/09/19 AGE: 69 : 52 SEX: F ROOM/BED: D.2237 AUTHOR: MARIA C ENRIQUEZ PHYSICIAN: REFERRING PHYSICIAN: HUONG ALBA MD DATE OF SERVICE: 11/21/19 Discharge Plan Patient Name: RABIA MORENO Facility: [facility]:[place] : 1950 Planned Disposition: Home with Home Health and Infusion Serv Anticipated Discharge Date: Discharge Date: 11/20/2019 Expected LOS: Initial Reviewer: [id number] Initial Review Date: 11/13/2019 Generated: 11/21/19 9:37 am Comments DCP- Discharge Planning Updated by [id number]: Molly Hernandez on 11/20/19 12:[address] Patient Name: RABIA MORENO Admission Status: ER Accout number: [id number] Admission Date: 11-09-2019 : 1950 Admission Diagnosis:OTALGIA, LEFT EAR Attending: CHRISTINA ALBA Current LOS: 11 Anticipated DC Date: Planned Disposition: Home with Home Health and Infusion Serv Primary Insurance: [facility] MEDICARE SOLUTIONS Discharge Planning Comments: ADRIANNA WHITTINGTON, WITH [facility] CAME YESTERDAY FOR TEACHING. PATIENT WAS REFUSING TO BE TAUGHT. I HAVE SPOKE WITH PATIENT TODAY ABOUT DC PLANS. SHE IS IN AGREEMENT TO DC TO HOME TODAY IF SHE AGREES WITH HER DC PAIN MEDICATION. [facility] CAN SEE THIS EVENING FOR HER EVENING DOSE BUT SHE REFUSES HH TO COME TO HER HOME TODAY BUT AGREES THEY CAN COME IN THE MORNING. HH IS SET UP TO GO TO HER HOUSE AT 8 AM IN THE MORNING. ANTICIPATE DC TODAY AND HH TO SEE IN THE MORNING AND START IV INFUSION. CM TO FOLLOW AND ACCEPT. Concrete Pipe Machine Operator: Molly Hernandez DCP- Discharge Planning Updated by [id number]: Molly Hernandez on 11/18/19 2:[address] Patient Name: RABIA MORENO Admission Status: ER Accout number: [id number] Admission Date: 11-09-2019 : 1950 Admission Diagnosis:OTALGIA, LEFT EAR Attending: CHRISTINA ALBA Current LOS: 9 Anticipated DC Date: Planned Disposition: Home with Home Health and Infusion Serv Primary Insurance: [facility] MEDICARE SOLUTIONS Discharge Planning Comments: I SPOKE WITH PATIENT AND SHE WOULD BE WILLING TO SET UP PAYMENT PLAN WITH IV INFUSION COMPANY IF NEEDED. [facility], ANTICIPATE DISCHARGE NEXT DAY OR SO WHEN STABLE BY DOCTOR AND ONCE HH AND IV INFUSION SERVICES ARE CONFIRMED. WAITING POINT OF CARE SPECIALIST BACK FROM [facility] TODAY. Concrete Pipe Machine Operator: Molly Hernandez Appended by Molly Hernandez on 11/18/2019 15:45 CDT: UPDATES FAXED TO [facility]. RECEIVED CALL BACK AND THEY ARE BOTH WORKING ON GETTING HER SET UP FOR POSSIBLE DC TOMORROW. DCP- Discharge Planning Updated by [id number]: Molly Hernandez on 11/18/19 11:[address] Patient Name: RABIA MORENO Admission Status: ER Accout number: [id number] Admission Date: 11-09-2019 : 1950 Admission Diagnosis:OTALGIA, LEFT EAR Attending: CHRISTINA ALBA Current LOS: 9 Anticipated DC Date: Planned Disposition: Home with Home Health and Infusion Serv Primary Insurance: [facility] MEDICARE SOLUTIONS Discharge Planning Comments: I SPOKE WITH PENNIE AT HER INSURANCE COMPANY AND I AM WAITING CALL BACK TO SEE WHAT THEY RECOMEND REGARDING DISCHARGE. Concrete Pipe Machine Operator: Molly Hernandez DCP- Discharge Planning Updated by [id number]: Molly Hernandez on 11/15/19 2:[address] Patient Name: RABIA MORENO Admission Status: ER Accout number: [id number] Admission Date: 11-09-2019 : 1950 Admission Diagnosis:OTALGIA, LEFT EAR Attending: CHRISTINA ALBA Current LOS: 6 Anticipated DC Date: Planned Disposition: Home with Home Health and Infusion Serv Primary Insurance: [facility] MEDICARE SOLUTIONS Discharge Planning Comments: FAXED CLINICALS TO [facility] THIS MORNING.WAITING TO HEAR BACK TO SEE IF HER INSURANCE IS GOING TO COVER. [facility] CALLED ME BACK AND HER INSURANCE WILL NOT COVER EVERYTHING WITH THEM. I WILL CONTINUE TO FOLLOW AND ASSIST NEEDED. Concrete Pipe Machine Operator: Molly Hernandez Appended by Molly Hernandez on 11/15/2019 15:14 CDT: WITH [facility] SHE WILL HAVE OUT OF POCKET $207.20. I SPOKE WITH HER ABOUT THIS AND SHE SAYS SHE HAS NO EXTRA MONEY TO SET UP PAYMENT PLAN WITH THEM. I SPOKE BRIEFLY WITH HER ABOUT GROUP HOME FACILITIES FOR HER IV INFUSIONS. SHE IS THINKING ABOUT IT, I REALLY DON'T THINK SHE WILL AGREE TO SNF BUT I WILL CHECK BACK WITH HER LATER TODAY. DCP- Discharge Planning Updated by [id number]: Molly Mary on 11/13/19 11:[address] Patient Name: RABIA MORENO Admission Status: ER Accout number: [id number] Admission Date: 11-09-2019 : 1950 Admission Diagnosis:OTALGIA, LEFT EAR Attending: CHRISTINA ALBA Current LOS: 4 Anticipated DC Date: Planned Disposition: Home with Home Health and Infusion Serv Primary Insurance: [facility] MEDICARE SOLUTIONS Discharge Planning Comments: CM met with patient at bedside after explaining CM role and obtaining verbal consent. CM discussed availability / needs of home health, REHAB and medical equipment. SHE WILL NEED HH AND AN IV INFUSION COMPANY AT DISCHARGE. JUAN CARLOS SIGNED FOR [facility] AND [facility]. I AM FAXING REFERRAL TODAY TO ANTICIPATE AND MONDAY OR MON DISCHARGE. CM WILL FOLLOW AND ASSIST NEEDED. Concrete Pipe Machine Operator: Molly Hernandez DCPIA - Discharge Planning Initial Assessment Updated by [id number]: Molly Hernandez on 11/13/19 12:11 pm * Is the patient Alert and Oriented? Yes * PCP FAYE * Preadmission Environment Home Alone * ADLs Independent * Other Equipment SHOWER CHAIR, CPAP * List name and contact numbers for known caregivers / representatives who currently or will assist patient after discharge: PENNIE GRIER * Community resources currently utilized None * Additional services required to return to the preadmission environment? Yes * Can the patient safely return to the preadmission environment? Yes * Has this patient been hospitalized within the prior 30 days at any hospital? No Coverage Notice Reviewer: [id number] Ara Hernadnez Notice Issued Date-Time: 11/13/2019 12:13 Notice Type: Patient Choice Letter Notice Delivered To: Relationship to Patient: Clinical Nurse Manager Name: Delivery Method: HAND - Hand Delivered Etelvina Days: Prior Verbal Notification: Recipient Understood Notice: Yes Recipient Signature: Yes Med Rec Note Co-signed by Attending: Coverage Notice Comment: [facility] Reviewer: [id number] Ara Hernandez Notice Issued Date-Time: 11/20/2019 15:41 Notice Type: IM Discharge Notice Notice Delivered To: Patient Relationship to Patient: Clinical Nurse Manager Name: Delivery Method: HAND - Hand Delivered Etelvina Days: Prior Verbal Notification: Recipient Understood Notice: Yes Recipient Signature: Yes Med Rec Note Co-signed by Attending: Coverage Notice Comment: Last DP export: 11/20/19 1:53 p Patient Name: RABIA MORENO Page 23222 at 0838 All edits/amendments must be made on the electronic document DICTATION DATE: 11/21/19836 ARTIST SCIENTIFIC: RITA 11/21/19836 RPT#: [id number] DC DATE:11/20/19 STATUS: DIS IN [facility] [address] [place] [address] END OF REPORT
== END 2019-11-20 16:08 | disposition home health service (06) | DRG 155 ==
LOC: D.ER 14:13 → D.MS 16:43
PROVIDERS: Emergency Medicine; Family Medicine; ADMIT Emergency Medicine; ATTEND Emergency Medicine
PROC: 05HD33Z Insertion of Infusion Device into Right Cephalic Vein, Percutaneous Approach (ICD-10-PCS; principal; 2019-11-13)
PROC: B54MZZA Ultrasonography of Right Upper Extremity Veins, Guidance (ICD-10-PCS; 2019-11-13)
PROC: 05HC33Z Insertion of Infusion Device into Left Basilic Vein, Percutaneous Approach (ICD-10-PCS; 2019-11-17)
PROC: B54NZZA Ultrasonography of Left Upper Extremity Veins, Guidance (ICD-10-PCS; 2019-11-17)
PROC: 02H633Z Insertion of Infusion Device into Right Atrium, Percutaneous Approach (ICD-10-PCS; 2019-11-20)
PROC: B548ZZA Ultrasonography of Superior Vena Cava, Guidance (ICD-10-PCS; 2019-11-20)
DX: H60.22 Malignant otitis externa, left ear (principal); E87.1 Hypo-osmolality and hyponatremia; E11.65 Type 2 diabetes mellitus with hyperglycemia; E11.40 Type 2 diabetes mellitus with diabetic neuropathy, unspecified; E03.9 Hypothyroidism, unspecified; I10 Essential (primary) hypertension; I25.10 Atherosclerotic heart disease of native coronary artery without angina pectoris

== ENCOUNTER 2019-11-28 13:06 | Observation (INO) | payer MEDICARE, MEDICAID ==
[~2019-11-28] VITALS: Ht 157.5 cm; Wt 89.4 kg
[~2019-11-28 13:06] MED LIST changes: +CILOXAN5 ML OT; +CIPRO500 MG PO; +DILAUDID2 MG PO; +FORTAZ IV; +HYDROCODON-ACE1 EAC7 PO; +LANTUS INS100 UNITS/ SC; +NYSTATIN100000 UN4 PO; +SINGULAIR10 MG PO; +[UNRECOGNIZED DRUG - OTHER] IV
--- NOTE | 2019-11-28 15:00 | NUR ---
THIS RN NOTIFIED OF A FALL IN PARKING LOT. THIS RN RESPONDED WITH A WHEELCHAIR TO THE SITE OF FALL. FOUND PT LYING ON HER SIDE NEXT TO A ROCK/BRICK WALL AT [facility] BY ER ENTRANCE. PT STATES SHE FELL AND HIT HER HEAD ON ROCK/BRICK WALL. PT STATES , AT TIME OF FALL, WAS ATTEMPTING TO LWOT FROM ER WAITING ROOM. PT STATED SHE JUST WANTS HER PICC LINE OUT AND WAS GOING TO LEAVE THE ER AND GO TO HER DR'S OFFICE TO CORPORATE OPERATIONS COMPLIANCE MANAGER CT SCAN REPORT FROM EARLIER TODAY, AND THEN INTENDED TO RETURN TO ER SO WE COULD DC HER PICC LINE. PT A/O X 4, NO ACTIVE BLEEDING NOTED. PT WAS ABLE TO BE ASSISTED FROM GROUND TO W/C ET WAS RETURNED TO THE ED WHERE A C-COLLAR WAS PLACED ON PT. ERP UPDATED ON PT ACTIVITIES AND CONDITION AND RESPONDED TO BEDSIDE. PT CONTINUES TO STATE SHE WANTS PICC LINE REMOVED TODAY.
[2019-11-28 15:56] VITALS: BP 142/68
--- NOTE | 2019-11-28 16:30 | NUR ---
PATIENT HAS PICC FROM PREVIOUS VISIT, THE LINE DOES HAVE GOOD BLOOD RETURN AND FLUSHES EASY.
--- NOTE | 2019-11-28 16:45 | NUR ---
PATIENT REFUSES TO GO HOME SHE INSIST ON BEING ADMITTED, STATES SHE LIVES ALONE AND IS UNABLE TO GET UP BY HERSELF. NOTIFED.
[2019-11-28 17:13] LABS: BASOPHILS 0.5 % (0-2); EOSINOPHILS 2.6 % (0-7); HEMATOCRIT 34.2 % (36.0-48.0); HEMOGLOBIN 10.7 g/dL (12-16); IMMATURE GRANULOCYTES 0.6 % (0-5); LYMPHOCYTES 18.7 % (15-50); MCH 28.2 pg (26.0-34.0); MCHC 31.3 g/dL (31.0-37.0); MCV 90.2 fL (80.0-100.0); MEAN PLATELET VOLUME 9.3 fL (7.4-10.4); MONOCYTES 6.8 % (2-11); NEUTROPHILS 70.8 % (40-80); PLATELET COUNT 196 10x3/uL (130-400); RBC 3.79 10x6/uL (4.00-5.40); RDW 14.2 % (11.5-14.5); WBC 9.7 10x3/uL (4.8-10.8)
--- NOTE | 2019-11-28 17:15 | NUR ---
PATIENT REPORTS CONTINUED PAIN, SHE IS VERY ANGRY AND STATES WE ARE NOT TREATING HER RIGHT, SHE DEMANDS PAIN MEDICATION AND MUSCLE RELAXER. INFORMED.
[2019-11-28 17:20] LABS: CALCIUM 8.1 mg/dL (8.5-10.1); CARBON DIOXIDE 29.8 mmol/L (21.0-32.0); CREATININE - SERUM 1.2 mg/dL (0.6-1.3); POTASSIUM - SERUM 3.8 mmol/L (3.5-5.1)
[2019-11-28 17:26] LABS: ALBUMIN 3.3 g/dL (3.4-5.0); BILIRUBIN - TOTAL 0.21 mg/dL (0.2-1.3); PROTEIN - SERUM 7.1 g/dL (6.4-8.2)
[2019-11-28 17:35] VITALS: BP 142/68
--- NOTE | 2019-11-28 18:30 | NUR ---
PATIENT REFUSES TO AMBULATE EVEN WITH ASSISTANCE, DEMANDED A GRADY, ONCE IT WAS PLACED SHE DEMANDED TAKE IT OUT, STATES AGAIN THAT SHE IS BEING TREATED UNFAIRLY. AND NEEDS MEDICATIONS FOR PAIN. INFORMED.
--- NOTE | 2019-11-28 18:45 | NUR ---
REPORT GIVEN TO WILLOW
--- NOTE | 2019-11-28 19:35 | NUR ---
RECEIVED PT FROM ER VIA STRETCHER. YELLING AT STAFF. REPORTS PAIN IN BACK A 10. JUST RECEIVED MORPHINE AND ZOFRAN IN THE ER. STATES SHE FELL IN THE PARKING LOT WHEN LEAVING THE ER AMA. RESP EVEN AND NONLABORED. REFUSED SCDS. VERY IRRITABLE AND DEMANDING. ATTN SEEKING. PICC NOTED TO RT UPPER ARM. INSTRUCTED NOT TO GET UP WITHOUT ASSISTANCE. SR ELEVATED X2. CL IN REACH.
[2019-11-28 20:00] VITALS: BP 160/82
[2019-11-28 20:21] LABS: APTT 28.4 SECONDS (22.8-39.4); INR 1.02 (0.85-1.17); PROTIME 13.4 SECONDS (11.6-15.0)
--- NOTE | 2019-11-28 21:22 | NUR ---
MEDICATED WITH MORPHINE AND ZOFRAN FOR C/O PAIN IN BACK RATING 10. CL IN REACH.
--- NOTE | 2019-11-28 22:45 | NUR ---
PT STATES MORPHINE DOSE NEEDS TO BE INCREASED BECAUSE SHE IS STILL HURTING AND WANTS A MUSCLE RELAXER. NOTIFIED SAGAR KHAN OF PT REQUEST. INSTRUCTED TO GIVE TYLENOL FOR BREAKTHROUGH PAIN. INFORMED PT OF THIS AND SHE CURSED AND WAS VERY AGITATED WITH STAFF. MEDICATED WITH TYLENOL AT THIS TIME. CL IN REACH.
[2019-11-29] VITALS: BP 139/63
[2019-11-29 00:18] VITALS: BP 160/82; BMI 36.1
--- NOTE | 2019-11-29 00:26 | NUR ---
SPOKE WITH LOCOMOTIVE ENGINEER. NO TELEMETRY AVAILABLE AT THIS TIME.
[2019-11-29] MEDS ORDERED: HUMULIN R100 UNIT/1 SC ×2 (02:19→02:20)
--- NOTE | 2019-11-29 02:27 | NUR ---
MEDICATED WITH MORPHINE AND ZOFRAN FOR C/O PAIN RATING 8 IN BACK. CL IN REACH. ASKING FOR SLEEPING PILL. INFORMED PT THAT ITS TOO LATE AT NIGHT FOR AMBIEN LIKE SHE TAKES AT HOME.
--- NOTE | 2019-11-29 03:21 | NUR ---
URINE OBTAINED FOR U/A AND UDS AND SENT TO LAB
[2019-11-29 04:00] VITALS: BP 153/54
[2019-11-29 04:36] LABS: BILIRUBIN NEGATIVE (NEGATIVE); GLUCOSE NEGATIVE (NEGATIVE); KETONE NEGATIVE (NEGATIVE); NITRITE NEGATIVE (NEGATIVE); SPECIFIC GRAVITY 1.005 (1.005-1.020); UROBILINOGEN NORMAL (NORMAL)
[2019-11-29 04:41] LABS: UDS - AMPHET NEGATIVE QUAL (NEGATIVE); UDS - BARB NEGATIVE QUAL (NEGATIVE); UDS - BENZO NEGATIVE QUAL (NEGATIVE); UDS - COCAINE NEGATIVE QUAL (NEGATIVE); UDS - OPIATE POSITIVE QUAL (NEGATIVE); UDS - PCP NEGATIVE QUAL (NEGATIVE); UDS - THC NEGATIVE QUAL (NEGATIVE)
[2019-11-29 05:23] LABS: BASOPHILS 0.4 % (0-2); EOSINOPHILS 3.5 % (0-7); HEMOGLOBIN 10.7 g/dL (12-16); IMMATURE GRANULOCYTES 0.4 % (0-5); LYMPHOCYTES 26.4 % (15-50); MCH 27.9 pg (26.0-34.0); MCHC 30.6 g/dL (31.0-37.0); MCV 91.4 fL (80.0-100.0); MEAN PLATELET VOLUME 9.6 fL (7.4-10.4); MONOCYTES 8.9 % (2-11); NEUTROPHILS 60.4 % (40-80); PLATELET COUNT 226 10x3/uL (130-400); RBC 3.83 10x6/uL (4.00-5.40); RDW 14.3 % (11.5-14.5); WBC 10.2 10x3/uL (4.8-10.8)
[2019-11-29 06:07] LABS: ALBUMIN 3.3 g/dL (3.4-5.0); ANION GAP 8.2 mmol/L (8-16); BILIRUBIN - TOTAL 0.27 mg/dL (0.2-1.3); CALCIUM 8.2 mg/dL (8.5-10.1); CARBON DIOXIDE 32.7 mmol/L (21.0-32.0); CREATININE - SERUM 1.1 mg/dL (0.6-1.3); MAGNESIUM - SERUM 1.9 mg/dL (1.8-2.4); POTASSIUM - SERUM 3.9 mmol/L (3.5-5.1); PROTEIN - SERUM 7.2 g/dL (6.4-8.2)
--- NOTE | 2019-11-29 06:27 | NUR ---
MEDICATED WITH MORPHINE AND ZOFRAN FOR C/O PAIN IN BACK RATING 8. CL IN REACH.
--- NOTE | 2019-11-29 07:21 | NUR ---
PT RESTING IN BED WITH EYES CLOSED, EASILY AROUSED TO SPEECH. ALERT AND ORIENTED. PICC LOCATED TO RIGHT UPPER ARM, SL. DENIES CURRENT NEEDS, WILL CONT TO MONITOR.
[2019-11-29 10:29] VITALS: BP 170/73
[2019-11-29 10:48] VITALS: Ht 157.5 cm; Wt 89.4 kg
[2019-11-29] MEDS ORDERED: CYCLOBENZAPRINE10 MG PO (14:23)
--- NOTE | 2019-11-29 15:44 | MORECARE ---
CASE MANAGEMENT DISCHARGE SUMMARY PATIENT: RABIA MORENO UNIT: [id number] ADM DATE: 11/28/19 AGE: 69 : 52 SEX: F ROOM/BED: D.2202 AUTHOR: MARIA C ENRIQUEZ PHYSICIAN: REFERRING PHYSICIAN: ODALYS PICKETT MD DATE OF SERVICE: 11/29/19 Discharge Plan Patient Name: RABIA MORENO Facility: [facility]:[place] : 1950 Planned Disposition: Home Anticipated Discharge Date: 11/29/19 Discharge Date: Expected LOS: 1 Initial Reviewer: [email or web address] Initial Review Date: 11/28/2019 Generated: 11/29/19 4:43 pm DCP- Discharge Planning Updated by [email or web address]: Molly Hernandez on 11/29/19 2:[address] Patient Name: RABIA MORENO Admission Status: Elective Accout number: [id number] Admission Date: 11-28-2019 : 1950 Admission Diagnosis: Attending: JULI Current LOS: 1 Anticipated DC Date: 11-29-2019 Planned Disposition: Home Primary Insurance: [facility] MEDICARE SOLUTIONS Discharge Planning Comments: REFAXED IV ORDER TO [facility], SHE IS STILL CURRENT WITH PASCUAL AND HAS A PICC LINE. DC TO HOME TODAY. It Applications Developer: Molly Hernandez External Providers External Provider: [facility] Next Contact Date: Service Request Date: Service Type: Resolution: Reviewer: Comments: [facility] Next Contact Date: Service Request Date: Service Type: Resolution: Reviewer: Comments: Patient Name: RABIA MORENO Page [phone] at 1544 All edits/amendments must be made on the electronic document DICTATION DATE: 11/29/191542 LIFE ENRICHMENT ASSISTANT: RITA 11/29/19 154 RPT#: [id number] DC DATE: STATUS: ADM IN [facility] [address] [place] [address] END OF REPORT
[2019-11-29] MEDS ORDERED: [UNRECOGNIZED DRUG - OTHER] IV (15:55)
[2019-11-29] MEDS ORDERED: FORTAZ IV (15:55)
--- NOTE | 2019-11-30 09:28 | MORECARE ---
CASE MANAGEMENT DISCHARGE SUMMARY PATIENT: RABIA MORENO UNIT: [id number] ADM DATE: 11/28/19 AGE: 69 : 52 SEX: F ROOM/BED: D.2202 AUTHOR: MARIA C ENRIQUEZ PHYSICIAN: REFERRING PHYSICIAN: ODALYS PICKETT MD DATE OF SERVICE: 11/30/19 Discharge Plan Patient Name: RABIA MORENO Facility: [facility]:[place] : 1950 Planned Disposition: Home Anticipated Discharge Date: 11/29/19 Discharge Date: 11/29/2019 Expected LOS: 1 Initial Reviewer: [email or web address] Initial Review Date: 11/28/2019 Generated: 11/30/19 10:27 am DCP- Discharge Planning Updated by [email or web address]: Molly Hernandez on 11/29/19 2:[address] Patient Name: RABIA MORENO Admission Status: Elective Accout number: [id number] Admission Date: 11-28-2019 : 1950 Admission Diagnosis: Attending: JULI Current LOS: 1 Anticipated DC Date: 11-29-2019 Planned Disposition: Home Primary Insurance: [facility] MEDICARE SOLUTIONS Discharge Planning Comments: REFAXED IV ORDER TO [facility], SHE IS STILL CURRENT WITH DUYEN AND HAS A PICC LINE. DC TO HOME TODAY. Supervisor Wound: Molly Hernandez Last DP export: 11/29/19 2:44 p Patient Name: RABIA MORENO Page [id number] at 0928 All edits/amendments must be made on the electronic document DICTATION DATE: 11/30/19926 TOOLROOM MACHINIST: DM 11/30/19926 RPT#: [id number] DC DATE:11/29/19 STATUS: DIS IN [facility] [address] [place] [address] END OF REPORT
== END 2019-11-29 16:58 | disposition home or self-care (01) ==
LOC: D.ER 13:06 → D.MS 16:52 → OBSVTIME 17:46 → D.MS 11-29 16:58
PROVIDERS: Family Medicine; ADMIT Family Medicine; ATTEND Family Medicine
DX: M54.9 Dorsalgia, unspecified (principal); W19.XXXA Unspecified fall, initial encounter; D64.9 Anemia, unspecified; E87.1 Hypo-osmolality and hyponatremia; E11.65 Type 2 diabetes mellitus with hyperglycemia; E66.01 Morbid (severe) obesity due to excess calories; E11.40 Type 2 diabetes mellitus with diabetic neuropathy, unspecified; G25.81 Restless legs syndrome; E03.9 Hypothyroidism, unspecified; I10 Essential (primary) hypertension; I25.10 Atherosclerotic heart disease of native coronary artery without angina pectoris; G47.33 Obstructive sleep apnea (adult) (pediatric); M79.7 Fibromyalgia; M19.90 Unspecified osteoarthritis, unspecified site; G89.29 Other chronic pain; R00.0 Tachycardia, unspecified

== ENCOUNTER → 2019-12-27 12:40 | Outpatient (CLI) | payer MEDICARE, MEDICAID ==
[2019-11-29 10:48] VITALS: BMI 36.0
[~2019-12-27 12:40] MED LIST changes: +CYCLOBENZAPRINE10 MG PO; +HUMULIN R100 UNIT/1 SC
== END | disposition home or self-care (01) ==
LOC: D.CT 12:40
PROVIDERS: ATTEND Family Medicine
DX: M79.601 Pain in right arm (principal)

== ENCOUNTER → 2020-01-03 13:36 | Outpatient (CLI) | payer MEDICARE, MEDICAID ==
[2019-11-29 10:48] VITALS: BMI 36.0
== END | disposition home or self-care (01) ==
LOC: D.US 13:36
PROVIDERS: ATTEND Family Medicine
DX: M79.601 Pain in right arm (principal)

== ENCOUNTER 2020-01-15 07:36 | Day surgery (SDC) | payer MEDICARE, MEDICAID ==
[~2020-01-15] VITALS: Ht 157.5 cm; Wt 90.0 kg
--- NOTE | ~2020-01-15 | HEMODYNAMI ---
PATIENT:RABIA MORENO MEDICAL RECORD: [id number] : 54 LOCATION:[facility] ADMISSION DATE: 01/15/20 Generatedon:01/15/202010:51 Patient name: RABIA MORENO Patient #: [id number] SSN: D OB: 1950 Date of study: 01/15/2020 Page: Of Hemodynamic Procedure Report Patient Data Patient Demographics Procedure consent was obtained First Name: RABIA Gender: Female Last Name: JOSH : 1950 [facility] Initial: A Age: 69 year(s) Patient #: [id number] Race: Unknown Additional ID: [id number] Contact details Address: [address] [place] [address] State: [place] City: [facility] Zip code: [address] Past Medical History Allergies Allergen Reaction Date Comments Reported Other allergy 01/15/2020 droperidol Admission Admission Data Admission Date: 01/15/2020 Admission Time: 7:36 Height (in.): 62 BSA: 1.9 (m2) Height (cm.): 157.48 BMI: 36.21 (kg/m2) Weight (lbs.): 198 Weight (kg.): 89.81 Procedure Procedure Types Cath Procedure Peripheral Cath Diagnostic Procedure Ski Technician Peripheral Procedures Venography Extremity Right Upper Ext. Venagram Procedure Description Procedure Date Procedure Date: 01/15/2020 Procedure Start Time: 10:17 Procedure Staff Name Function Tomas Perdomo MD Performing Physician Bety Carmona RT Heat Treat Technician Sussy Gilliam RN Nurse Chi Salvador RT Scrub Procedure Data Cath Procedure Fluoroscopy Diagnostic fluoroscopy Total fluoroscopy Time: 2.6 time: 2.6 min min Diagnostic fluoroscopy Total fluoroscopy dose: 53 dose: 53 mGy mGy Contrast Material Contrast Material Type Amount (ml) Isovue 300 45 Procedure Medications Medication Administration Route Dosage Heparin Flush Bag added to field 2 bags (1000units/500ml NS) Lidocaine 1% added to field 20 Zofran I.V. 8 mg Versed I.V. 1 mg Fentanyl I.V. 50 mcg Benadryl I.V. 50 mg Versed I.V. 1 mg Fentanyl I.V. 50 mcg Versed I.V. 1 mg Fentanyl I.V. 50 mcg Heparin Bolus I.V. 5000 units Versed I.V. 1 mg Fentanyl I.V. 50 mcg Hemodynamics Rest BSA: 1.9 (m2) O2 Consumption: Estimated: 179.46 (ml/min) O2 Consumption indexed: Estimated:94.45 (ml/min/m) Heart Rate: 74 (bpm) Snapshots Pre Cath Intra NCS Post Cath Vital Signs Time Heart Resp SPO2 etCO2 NIBP (mmHg) Rhythm Pain Sedation Rate (ipm) (%) (mmHg) Status Level (bpm) 9:48:27 73 12 99 42.1 177/78(135) NSR 0 (11) 10(A) , No pain 9:53:26 75 17 99 23.3 Measuring NSR 0 (11) 10(A) , No pain 9:54:32 75 3 100 41.4 168/77(120) NSR 0 (11) 10(A) , No pain 9:59:02 73 4 99 39.9 167/80(137) NSR 0 (11) 10(A) , No pain 10:03:35 72 15 100 25.6 161/74(120) NSR 0 (11) 10(A) , No pain 10:08:01 72 8 100 39.9 156/79(135) NSR 0 (11) 10(A) , No pain 10:12:29 72 72 99 43.7 145/67(116) NSR 0 (11) 10(A) , No pain 10:16:56 71 30 99 46.7 150/72(117) NSR 0 (11) 10(A) , No pain 10:21:20 75 13 99 36.8 167/88(109) NSR 0 (11) 9(A) , No pain 10:25:44 75 42 97 33.9 147/81(116) NSR 0 (11) 9(A) , No pain 10:30:08 76 68 99 50.5 145/67(120) NSR 0 (11) 9(A) , No pain 10:34:28 71 47 98 45.9 142/69(103) NSR 0 (11) 9(A) , No pain 10:38:44 83 33 87 0 131/73(103) NSR 0 (11) 9(A) , No pain 10:43:04 76 16 100 11.3 142/69(105) NSR 0 (11) 9(A) , No pain 10:47:29 73 14 100 34.6 136/66(109) NSR 0 (11) 9(A) , No pain 10:50:59 72 20 100 30.1 141/60(100) NSR 0 (11) 9(A) , No pain Medications Time Medication Route Dose Verified Delivered Reason Notes Effe ctiveness by by 10:13:15 Heparin Flush added 2 Tomas Marin used for Bag to bags Conor Perdomo MD procedure (1000units/500ml field ARELLANO NS) 10:13:29 Lidocaine 1% added 20ml Tomas Marin for local to vial Conor Perdomo MD anesthetic field 10:20:09 Zofran I.V. 8 mg Tomas Hi Per Mane Perdomo RN physician 10:20:21 Versed I.V. 1 mg Tomas Armasody for Mane Perdomo RN sedation 10:20:32 Fentanyl I.V. 50 Tomas Sussy for mcg Mane Perdomo RN sedation 10:20:45 Benadryl I.V. 50 mg Tomas Sussy Per Mane Perdomo RN physician 10:24:32 Versed I.V. 1 mg Tomas Armasody for Mane Perdomo RN sedation 10:24:40 Fentanyl I.V. 50 Tomas Armasody for mcg Mane Perdomo RN sedation 10:30:46 Versed I.V. 1 mg Tomas Sussy for Mane Perdomo RN sedation 10:30:55 Fentanyl I.V. 50 Tomas Sussy for mcg Mane Perdomo RN sedation 10:35:04 Heparin Bolus I.V. 5000 Tomas Sussy Per units Mane Perdomo RN physician 10:36:00 Versed I.V. 1 mg Tomas Sussy for Mane Perdomo RN sedation 10:36:21 Fentanyl I.V. 50 Tomas Sussy for mcg Mane Perdomo RN sedation Procedure Log Time Note 9:33:43 Patient Height : 62 inches 9:33:50 Patient Weight : 198 lbs 9:33:57 Time tracking: Regular hours (M-F 7:00 - 5:00) 9:34:04 Plan of Care:Hemodynamics will remain stable., Cardiac rhythm will remain stable., Comfort level will be maintained., Respiratory function will remain adequate., Patient/ family verbilizes understanding of procedure., Procedure tolerated without complication., Recovers from procedure without complications.. 9:34:10 Patient received from Outpatients to IR Alert and oriented. Tansferred to table in Supine position. 9:34:14 Signed procedure consent form obtained from patient. 9:34:20 H&P Date Dictated: 01/15/2020 Within 30 days and on chart., H&P Addendum completed by physician on day of procedure. (MUST COMPLETE FOR ALL OUTPATIENTS). 9:34:23 Pre-procedure instructions explained to patient. 9:34:23 Pre-op teaching completed and patient verbalized understanding. 9:34:25 Family unavailable. 9:34:28 Patient NPO since Midnight. 9:34:57 Patient allergic to Other allergydroperidol 9:37:03 Is the patient allergic to Iodine/contrast media? No. 9:37:06 Is patient on blood thinner?Yes 9:46:24 Patient diabetic? Yes. 9:46:28 - 9:46:29 ----Pre-sedation anethsthesia assessment.---- 9:46:48 Previous problem with sedation/anesthesia? No ? 9:46:55 Vital chart was started 9:47:12 Snore? Yes 9:47:16 Sleep apnea? Yes 9:47:20 Deviated septum? No 9:47:27 Opens mouth fully? Yes 9:47:29 Sticks out tongue? Yes 9:47:34 Airway obstruction? Yes copd 9:48:04 Dentures? No ? 9:48:12 ECG and BP/O2 sat monitors applied to patient. 9:48:15 Baseline sample Acquired. 9:48:19 Full Disclosure recording started 9:48:21 - 9:48:33 Right Arm area was prepped with chlora-prep and draped in sterile fashion 9:49:09 Baseline sample Acquired. 9:49:30 - 9:50:27 Use device set IR Diagnostic 9:50:28 Tegaderm 4 x 4 (1626W) opened to sterile field. 9:50:29 Sterile Angiographic Pack opened to sterile field. 9:50:30 Bag Decanter (2002S) opened to sterile field. 9:50:41 Micropuncture VSI 4FR kit opened to sterile field. 10:13:15 Heparin Flush Bag (1000units/500ml NS) 2 bags added to field was administered by Tomas Perdomo MD; used for procedure; Verbal order read back and verified. 10:13:29 Lidocaine 1% 20ml vial added to field was administered by Tomas Perdomo MD; for local anesthetic; Verbal order read back and verified. 10:17:11 - 10:17:15 Physician arrived 10:17:16 --------ALL STOP TIME OUT------ 10:17:16 Final Timeout: patient, procedure, and site verified with staff and physician. All members of the team are in agreement. 10:17:34 Fire Safety Assessment: A--An alcohol-based skin anteseptic being used preoperatively., C--Open oxygen or nitrous oxide is being used. 10:17:45 Procedure started. 10:17:55 Local anesthetic to right arm with Lidocaine 1% by Tomas Perdomo MD.INITIAL ACCESS ONLY 10:18:01 - 10:18:09 3a) 45-59 Moderately reduced kidney function. 10:20:09 Zofran 8 mg I.V. was administered by Sussy Gilliam RN; Per physician; Verbal order read back and verified. 10:20:21 Versed 1 mg I.V. was administered by Sussy Gilliam RN; for sedation; Verbal order read back and verified. 10:20:32 Fentanyl 50 mcg I.V. was administered by Sussy Gilliam RN; for sedation ; Verbal order read back and verified. 10:20:45 Benadryl 50 mg I.V. was administered by Sussy Gilliam RN; Per physician ; Verbal order read back and verified. 10:24:32 Versed 1 mg I.V. was administered by Sussy Gilliam RN; for sedation; Verbal order read back and verified. 10:24:40 Fentanyl 50 mcg I.V. was administered by Sussy Gilliam RN; for sedation ; Verbal order read back and verified. 10:30:46 Versed 1 mg I.V. was administered by Sussy Gilliam RN; for sedation; Verbal order read back and verified. 10:30:55 Fentanyl 50 mcg I.V. was administered by Sussy Gilliam RN; for sedation ; Verbal order read back and verified. 10:34:11 SHEATH 6FR Destination (RSR01) opened to sterile field. 10:34:14 SHEATH 6FR [place] (LPD215) opened to sterile field. 10:34:20 DOC .035 wire (P14595) opened to sterile field. 10:34:27 BENTSON 145cm wire (L63086) opened to sterile field. 10:35:04 Heparin Bolus 5000 units I.V. was administered by Sussy Mane RN; Per physician; Verbal order read back and verified. 10:36:00 Versed 1 mg I.V. was administered by Sussy Gilliam RN; for sedation; Verbal order read back and verified. 10:36:21 Fentanyl 50 mcg I.V. was administered by Sussy Gilliam RN; for sedation ; Verbal order read back and verified. 10:39:41 GLIDE WIRE ANGLE 180cm (PF2223) opened to sterile field. 10:40:12 Indigo System Aspiration Catheter 6 opened to sterile field. 10:40:31 GLIDE CATHETER 5FR ANGLED 65cm (CG507) opened to sterile field. 10:44:29 Procedure ended.(Physican Out) 10:47:28 Fluoroscopy time 02.60 minutes. 10:47:34 Fluoroscopy dose: 53 mGy 10:47:34 Flurop Dose total: 53 10:47:47 Contrast amount:Isovue 300 45ml. 10:47:50 Procedure and supply charges have been captured, reviewed, submitted an d are correct. 10:51:27 Vital chart was stopped Device Usage Item Name Manufacture Quantity Catalog Hospital Part Current Minima l Lot# / Number Charge Number Stock Stock Serial# Code Tegaderm 4 x 3M 1 1626W [id number] [id number] 5 4 (1626W) Sterile Cardinal 1 [id number] 889227 527794 5 Angiographic Health Pack Bag Decanter Microtek 1 2001S 217961 30497 546782 5 (2001S) Medical Inc. Micropuncture VSI VASCULAR 1 7266V 622028 624941 5 VSI 4FR kit SOLUTIONS SHEATH 6FR Terumo 1 RSR01 948724 06003 039614 5 Destination (RSR01) SHEATH 6FR Terumo 1 [id number] 961297 316037 615783 40 [place] (ZOV429) DOC .035 wire [employer] 1 Z57038 299821 778131 5 (N77285) BENTSON 145cm [employer] 1 M39845 199031 108626 5 wire (N22281) Indigo System Penumbra 1 CAT6 467764 649670 841904 1 Aspiration Catheter 6 GLIDE WIRE Terumo 1 LM6510 982751 269607 011858 5 ANGLE 180cm (AZ8503) GLIDE Terumo 1 CG507 364006 337614 5 CATHETER 5FR ANGLED 65cm (CG507) Signature Audit Byron Stage Time Signature Unsigned Intra-Procedure 01/15/2020 Bety Carmona 10:51:22 AM RT(R) [facility] [address] [place] [address]
[2020-01-15 08:16] LABS: INR 1.03 (0.85-1.17); PROTIME 13.4 SECONDS (11.6-15.0)
[2020-01-15] MEDS ORDERED: NEURONTIN 300300 MG PO (08:17)
[2020-01-15 08:21] VITALS: BP 178/79; Ht 157.5 cm; Wt 90.0 kg
[2020-01-15 08:21] LABS: ANION GAP 11.4 mmol/L (8-16); CALCIUM 9.8 mg/dL (8.5-10.1); CARBON DIOXIDE 28.5 mmol/L (21.0-32.0); CREATININE - SERUM 1.1 mg/dL (0.6-1.3); POTASSIUM - SERUM 3.9 mmol/L (3.5-5.1)
[2020-01-15 08:49] LABS: BASOPHILS 0.3 % (0-2); EOSINOPHILS 2.8 % (0-7); HEMATOCRIT 36.5 % (36.0-48.0); HEMOGLOBIN 11.7 g/dL (12-16); IMMATURE GRANULOCYTES 0.5 % (0-5); LYMPHOCYTES 35.9 % (15-50); MCH 27.5 pg (26.0-34.0); MCHC 32.1 g/dL (31.0-37.0); MCV 85.7 fL (80.0-100.0); MEAN PLATELET VOLUME 9.6 fL (7.4-10.4); MONOCYTES 5.8 % (2-11); NEUTROPHILS 54.7 % (40-80); PLATELET COUNT 211 10x3/uL (130-400); RBC 4.26 10x6/uL (4.00-5.40); RDW 14.2 % (11.5-14.5); WBC 12.7 10x3/uL (4.8-10.8)
--- NOTE | 2020-01-15 11:12 | NUR ---
1104 SEE POST PROCEDURE CHECKLIST FOR VITAL SIGN TRENDS. PT. GAVE TIME FOR DISCHARGE EXPECTATIONS. ADA FINGER FOOD DIET ORDERED. HOB ELEVATED TO 30 DEGREES. RIGHT ARM STRAIGHT WITH ICE PACK. DIET COLA SERVED.
--- NOTE | 2020-01-15 11:27 | NUR ---
1120 NO BLEEDING NOR HEMATOMA, STATES PAIN 6/10 NORCO 5MG PO GIVEN FOR PAIN. 1130 ADA FINGER FOOD DIET SERVED.
--- NOTE | 2020-01-15 11:42 | NUR ---
1142 ULTRASOUND PERSONNAL HERE TO DO US OF THYROID
--- NOTE | 2020-01-15 13:15 | NUR ---
1450 IV REMOVED AND PRESSURE HELD. INSTRUCTIONS GIVEN.
--- NOTE | 2020-01-15 13:17 | NUR ---
DRESSING CDI. UPPER ARM SWOLLEN PRE OP NOTED
== END 2020-01-15 13:10 | disposition home or self-care (01) ==
LOC: D.SP 07:36 → D.US 09:30 → D.RAD 10:30 → D.SP 13:10
PROVIDERS: General Practice; ATTEND Family Medicine
DX: G47.33 Obstructive sleep apnea (adult) (pediatric) (principal); M79.601 Pain in right arm; K21.9 Gastro-esophageal reflux disease without esophagitis; E11.40 Type 2 diabetes mellitus with diabetic neuropathy, unspecified; I10 Essential (primary) hypertension; E03.9 Hypothyroidism, unspecified; Z79.4 Long term (current) use of insulin

== ENCOUNTER → 2020-02-03 11:44 | Outpatient (CLI) | payer MEDICARE, MEDICAID ==
[2020-01-15 08:21] VITALS: BMI 36.3
--- NOTE | 2020-02-05 08:18 | EC ---
PATIENT:RABIA MORENO DATE OF SERVICE: 02/03/20 SEX: F MEDICAL RECORD: [id number] DATE OF : [birth year] LOCATION:D[facility] AGE OF PATIENT: 69 ADMISSION DATE: 02/03/20 REFERRING PHYSICIAN: INTERPRETING PHYSICIAN: ODALYS VÁSQUEZ MD ECHOCARDIOGRAM REPORT ECHO CHARGES 4 ECHO COMPLETE Date: 02/03/20 CLINICAL DIAGNOSIS: CAD/CHEST PAIN,DYSPNEA ON EXERTION ECHOCARDIOGRAPHIC MEASUREMENTS (adult normal given) AC root (d.<3.7cm) 3.2 cm LV Septum d (<1.2 cm> 1.5 cm Valve Excursion 1.3 cm LV Septum (systole) 1.8 cm Left Atria (s.<4.0cm> 3.1 cm LVPW d(<1.2cm) 1.8 cm RV (d.<2.3cm) 3.3 cm LVPW (sytole) 2.0 cm LV diastole(<5.6CM) 4.2 cm MV E-F(>70mm/sec) cm LV systole 2.8 cm LVOT Diameter 1.6 cm MV exc.(>10mm) 1.5 cm Est.ejection fraction (50-75%) % DOPPLER: LVIT cm/sec A 95.0 cm/sec E 66.0 cm/sec LA cm/sec RVSP 19 mmHg LVOT 79 cm/sec AOP1/2T m/s Asc. Ao 142 cm/sec RVOT 104 cm/sec RA cm/sec PA 117 cm/sec AV Gradient Peak 8.01 mmHg AV Mean 4.46 mmHg AV Area 1.5 cm MV Gradient Peak 5.67 mmHg MV Mean 1.87 mmHg MV Area cm COMMENTS: Soldering Inspector: 2 JACEK JACOB Tire Recapper: 3 Dr. Chin TAPE# PACS Pericardial Effusion N DATE OF SERVICE: Adequate 2D, color flow imaging, spectral Doppler, and M-Mode LVH is present. LV internal dimension is normal. Wall motion is normal. EF is greater than or equal to 55%. Aortic valve is tricuspid. No evidence of stenosis by Doppler interrogation. Left atrium is normal at 3.1 cm. Mitral valve shows no prolapse. Trivial MR. Right-sided chambers are grossly normal. Trivial TR. TRANSINT:[id number] Voice Confirmation ID: [id number] DOCUMENT ID: [id number] ECHOCARDIOGRAM REPORT [id number] RABIA MORENO,ODALYS Mora MD at 0818 CC: [id number] DICTATION DATE: 02/04/201613 DIRT BIKE RACER: 02/04/202100 DEP CLI 02/03/20 [place] [id number] [place] [id number]
== END | disposition home or self-care (01) ==
LOC: D.HCCARDIO 11:44
PROVIDERS: ATTEND Internal Medicine Cardiovascular Disease
DX: I25.10 Atherosclerotic heart disease of native coronary artery without angina pectoris (principal)

== ENCOUNTER → 2020-02-13 12:06 | Outpatient (CLI) | payer MEDICARE, MEDICAID ==
[2020-01-15 08:21] VITALS: BMI 36.3
== END | disposition home or self-care (01) ==
LOC: D.CT 12:06
PROVIDERS: ATTEND Family Medicine
DX: H70.12 Chronic mastoiditis, left ear (principal)

== ENCOUNTER 2020-03-03 21:39 | Emergency (ER) | payer MEDICARE, MEDICAID ==
[~2020-03-03] VITALS: Ht 157.5 cm; Wt 90.9 kg
[~2020-03-03 21:39] MED LIST changes: +CLINDAMYCIN HC300 MG PO; +LEVOFLOXACIN500 MG PO
[2020-03-03 21:52] VITALS: Ht 157.5 cm; Wt 90.9 kg
[2020-03-03 22:42] LABS: BASOPHILS 0.2 % (0-2); HEMOGLOBIN 12.2 g/dL (12-16); IMMATURE GRANULOCYTES 0.3 % (0-5); LYMPHOCYTES 29.3 % (15-50); MCH 27.4 pg (26.0-34.0); MCHC 32.1 g/dL (31.0-37.0); MCV 85.4 fL (80.0-100.0); MONOCYTES 6.6 % (2-11); NEUTROPHILS 61.6 % (40-80); PLATELET COUNT 225 10x3/uL (130-400); RBC 4.45 10x6/uL (4.00-5.40); RDW 13.9 % (11.5-14.5); WBC 14.7 10x3/uL (4.8-10.8)
[2020-03-03 22:51] LABS: ANION GAP 16.9 mmol/L (8-16); CALCIUM 9.6 mg/dL (8.5-10.1); CARBON DIOXIDE 25.8 mmol/L (21.0-32.0); CREATININE - SERUM 1.2 mg/dL (0.6-1.3); POTASSIUM - SERUM 3.7 mmol/L (3.5-5.1)
[2020-03-03 22:57] LABS: ALBUMIN 3.5 g/dL (3.4-5.0); BILIRUBIN - TOTAL 0.27 mg/dL (0.2-1.3); PROTEIN - SERUM 7.6 g/dL (6.4-8.2)
[2020-03-05] MEDS ORDERED: HYDROCODON-ACE1 EA10 PO (11:38)
== END 2020-03-04 00:10 | disposition home or self-care (01) ==
LOC: D.ER 21:39
PROVIDERS: Family Medicine
DX: H70.90 Unspecified mastoiditis, unspecified ear (principal); E11.40 Type 2 diabetes mellitus with diabetic neuropathy, unspecified; E03.9 Hypothyroidism, unspecified; I10 Essential (primary) hypertension; Z79.4 Long term (current) use of insulin; Z53.29 Procedure and treatment not carried out because of patient's decision for other reasons

== ENCOUNTER 2020-03-05 10:19 | Day surgery (SDC) | payer MEDICARE, MEDICAID ==
[~2020-03-05] VITALS: Ht 157.5 cm; Wt 89.8 kg
--- NOTE | ~2020-03-05 | HEMODYNAMI ---
PATIENT:RABIA MORENO MEDICAL RECORD: [id number] : 54 LOCATION:[facility] ADMISSION DATE: 03/05/20 Generatedon:03/05/202014:31 Patient name: RABIA MORENO Patient #: [id number] SSN: D OB: 1950 Date of study: 03/05/2020 Page: Of Hemodynamic Procedure Report Patient Data Patient Demographics Procedure consent was obtained First Name: RABIA Gender: Female Last Name: JOSH : 1950 [facility] Initial: A Age: 69 year(s) Patient #: [id number] Race: Unknown Additional ID: [id number] Contact details Address: [address] [place] [address] State: [place] [facility] [place]: [address] Past Medical History Allergies Allergen Reaction Date Comments Reported Other allergy 01/15/2020 droperidol Other allergy 03/05/2020 DROPERIDOL Admission Admission Data Admission Date: 03/05/2020 Admission Time: 10:19 Height (in.): 62 BSA: 1.9 (m2) Height (cm.): 157.48 BMI: 36.03 (kg/m2) Weight (lbs.): 197 Weight (kg.): 89.36 Procedure Procedure Types Cath Procedure Peripheral Cath Diagnostic Procedure Membership Sales Advisor Peripheral Procedures Venography Extremity Right Upper Ext. Venagram Procedure Description Procedure Date Procedure Date: 03/05/2020 Procedure Start Time: 13:45 Procedure Staff Name Function Tomsa Perdomo MD Performing Physician Bety Carmona RT Asset Protection Assistant Sussy Gilliam RN Nurse Litzy DE LOS SANTOS RN Nurse SOKAR ARREOLA RT Scrub Chi Salvador RT Asset Protection Assistant Procedure Data Cath Procedure Fluoroscopy Diagnostic fluoroscopy Total fluoroscopy Time: 5.5 time: 5.5 min min Diagnostic fluoroscopy Total fluoroscopy dose: 415 dose: 415 mGy mGy Procedure Medications Medication Administration Route Dosage Heparin Flush Bag added to field 2 bags (1000units/500ml NS) Lidocaine 1% added to field 20 Refer to Anesthesia Notes for Sedation Medications Hemodynamics Rest BSA: 1.9 (m2) O2 Consumption: Estimated: 258.4 (ml/min) O2 Consumption indexed: Estimated:136 (ml/min/m) Pre Cath Intra NCS Post Cath Medications Time Medication Route Dose Verified Delivered Reason Notes Effe ctiveness by by 13:52:27 Heparin Flush added 2 Tomas Marin used for Bag to bags Conor Perdomo MD procedure (1000units/500ml field NS) 13:52:44 Lidocaine 1% added 20ml Tomas Marin for local to vial Conor Perdomo MD anesthetic field 13:52:56 Refer to Tomas Marin Anesthesia Notes Conor Perdomo MD for Sedation MD Medications Procedure Log Time Note 12:28:52 Patient Height : 62 inches 12:28:57 Patient Weight : 197 lbs 12:29:31 Use device set IR Diagnostic 13:12:44 Tegaderm 4 x 4 (1626W) opened to sterile field. 13:12:45 Sterile Angiographic Pack opened to sterile field. 13:12:46 Bag Decanter (2002S) opened to sterile field. 13:12:46 ACIST Manifold (26904) opened to sterile field. 13:12:47 ACIST Hand Control (08937) opened to sterile field. 13:12:48 ACIST Syringe (36633) opened to sterile field. 13:14:03 SHEATH 6FR Lowell (VFP273) opened to sterile field. 13:14:03 TUBING Contrast Injection High Pressure (GFX804G) opened to sterile field. 13:14:04 TUBING Contrast Injection High Pressure (HEN705L) opened to sterile field. 13:14:05 SHEATH 6FR [place]ell (SZV214) opened to sterile field. 13:14:06 Micropuncture VSI 4FR kit opened to sterile field. 13:14:07 DOC .035 wire (M89579) opened to sterile field. 13:16:45 Time tracking: Regular hours (M-F 7:00 - 5:00) 13:16:54 Plan of Care:Hemodynamics will remain stable., Cardiac rhythm will remain stable., Comfort level will be maintained., Respiratory function will remain adequate., Patient/ family verbilizes understanding of procedure., Procedure tolerated without complication., Recovers from procedure without complications.. 13:17:02 Patient received from Outpatients to IR Alert and oriented. Tansferred to table in Supine position. 13:17:12 Signed procedure consent form obtained from patient. 13:17:19 - 13:17:25 H&P Date Dictated: 03/05/2020 Within 30 days and on chart., H&P Addendum completed by physician on day of procedure. (MUST COMPLETE FOR ALL OUTPATIENTS). 13:17:27 Pre-procedure instructions explained to patient. 13:17:28 Pre-op teaching completed and patient verbalized understanding. 13:17:33 Family unavailable. 13:17:36 Patient NPO since Midnight. 13:18:16 Patient allergic to Other allergyDROPERIDOL 13:18:22 Is the patient allergic to Iodine/contrast media? No. 13:18:26 Is patient on blood thinner?Yes 13:18:38 Patient diabetic? Yes. 13:18:43 - 13:18:44 ----Pre-sedation anethsthesia assessment.----SEE ANESTHESIA NOTES FOR MONITORING OF PATIENT DURING PROCEDURE 13:19:24 - 13:19:33 Right groin area was prepped with chlora-prep and draped in sterile fashion 13:19:39 Right Arm area was prepped with chlora-prep and draped in sterile fashion 13:19:56 Fire Safety Assessment: A--An alcohol-based skin anteseptic being used preoperatively., C--Open oxygen or nitrous oxide is being used. 13:20:09 3a) 45-59 Moderately reduced kidney function. 13:20:44 - 13:44:30 Physician arrived 13:44:30 --------ALL STOP TIME OUT------ 13:44:31 Final Timeout: patient, procedure, and site verified with staff and physician. All members of the team are in agreement. 13:45:05 Procedure started. 13:45:05 Full Disclosure recording started 13:45:13 Local anesthetic to right femoral vein with Lidocaine 1% by Tomas Perdomo MD.INITIAL ACCESS ONLY 13:52:27 Heparin Flush Bag (1000units/500ml NS) 2 bags added to field was administered by Tomas Perdomo MD; used for procedure; Verbal order read back and verified. 13:52:44 Lidocaine 1% 20ml vial added to field was administered by Tomas Perdomo MD; for local anesthetic; Verbal order read back and verified. 13:52:56 Refer to Anesthesia Notes for Sedation Medications was administered by Tomas Perdomo MD; ; Verbal order read back and verified. 13:54:37 GLIDE CATHETER 5FR ANGLED 65cm (CG507) opened to sterile field. 13:54:37 GLIDE WIRE ANGLE 180cm (KA7036) opened to sterile field. 13:56:56 SHEATH 6FR X 25CM RADIOPAUQE PINNICALE (VSW252) opened to sterile field . 13:56:57 INFLATOR BasixTOUCH (RU8038) opened to sterile field. 14:00:57 GUIDEWIRE ISLAS 260CM( [id number]) opened to sterile field. 14:05:19 Inflate balloon Inflation number: 1 A Evercross 8 x 6 x 135 Balloon ([id number]) was prepped and advanced across the Undefined1 , then inflated to 14 MORIS for 0:05 (min:sec) . 14:13:10 Inflate balloon Inflation number: 2 A Evercross 10 x 40 x 135 Balloon ([id number]) was prepped and advanced across the Undefined1 , then inflated to 11 MORIS for 1:16 (min:sec) . 14:17:30 SHEATH 7FR X 25CM PINNACLE (WNG596) opened to sterile field. 14:19:48 Inflate balloon Inflation number: 3 A Evercross 12 x 40 x 135 ([id number]) was prepped and advanced across the Undefined1 , then inflated to 9 MORIS for 0:00 (min:sec) . 14:24:58 Procedure ended.(Physican Out) 14:25:54 Fluoroscopy time 05.50 minutes. 14:25:59 Fluoroscopy dose: 415 mGy 14:25:59 Flurop Dose total: 415 14:26:30 SEE ANESTHESIA NOTE FOR POST PROCEDURE ANESTHESIA 14:30:30 Post right arm:stable 14:30:35 Report given to Recovery Room. 14:30:38 Patient transfered to Recovery Room with Bed. Intervention Summary Intervention Notes Time ActionType Lesion and Equipment Used Action# Pressure Duration Attributes 14:05:19 Inflate Undefined1 Evercross 8 x 6 1 14 00:05 balloon x 135 Balloon ([id number]) 14:13:10 Inflate Undefined1 Evercross 10 x 2 11 01:16 balloon 40 x 135 Balloon ([id number]) 14:19:48 Inflate Undefined1 Evercross 12 x 3 9 00:00 balloon 40 x 135 ([id number]) Device Usage Item Name Manufacture Quantity Catalog Number Hospital Part Current M inimal Lot# / Charge Number Stock Stock Serial# Code Tegaderm 4 x 4 3M 1 [id number] [id number] [id number] 5 (1626W) Sterile Cardinal 1 [id number] 767059 373445 5 Angiographic Health Pack Bag Decanter Microtek 1 2001S 239028 84798 826223 5 () Medical Inc. ACIST Manifold Acist 1 12411 476207 505133 242062 5 (09745) Medical Systems Inc ACIST Hand Acist 1 26362 114944 317994 204876 5 Control (53317) Medical Systems Inc ACIST Syringe Acist 1 93538 766394 381993 327770 2 0 (31061) Medical Systems Inc SHEATH 6FR Terumo 2 AHT861 006053 741965 263461 4 0 Lowell (OJA544) TUBING Contrast Merit 2 JUN809F 205308 528382 515110 5 Injection High Medical Pressure (QYH116L) Micropuncture VSI VASCULAR 1 7266V 144734 556048 5 VSI 4FR kit SOLUTIONS DOC .035 wire Cook Medical 1 I08743 891855 954562 5 (R11116) GLIDE CATHETER Terumo 1 CG507 224038 070283 5 5FR ANGLED 65cm (CG507) GLIDE WIRE Terumo 1 GA3275 498187 064627 289542 5 ANGLE 180cm (TU7934) SHEATH 6FR X Terumo 1 CEC149 997863 083364 149954 1 25CM RADIOPAUQE PINNICALE (YUQ963) INFLATOR Merit 1 KO2336 587845 925905 944868 5 [employer] (FB7257) GUIDEWIRE ISLAS [place] 1 [id number] 509034 732398 1 [id number] 260CM( Scientific [id number]) Evercross 8 x 6 Medtronic 1 [id number] 744759 088517 726568 5 x 135 Balloon ([id number]) Evercross 10 x Medtronic 1 [id number] 077648 253053 952155 5 40 x 135 Balloon ([id number]) SHEATH 7FR X Terumo 1 NTR995 SHEATH 953121 1 25CM PINNACLE 7FR X (MIU956) 25CM PINNACLE (OVA863) Evercross 12 x Medtronic 1 [id number] 679417 069184 680178 5 40 x 135 ([id number]) Signature Audit Diana Stage Time Signature Unsigned Intra-Procedure 03/05/2020 Chi 2:31:27 PM [place] RT (R) (CV) [facility] [address] [place] [address]
[2020-03-05 10:49] LABS: BASOPHILS 0.3 % (0-2); EOSINOPHILS 2.6 % (0-7); HEMATOCRIT 37.7 % (36.0-48.0); HEMOGLOBIN 12.2 g/dL (12-16); IMMATURE GRANULOCYTES 0.4 % (0-5); LYMPHOCYTES 31.4 % (15-50); MCH 27.5 pg (26.0-34.0); MCHC 32.4 g/dL (31.0-37.0); MCV 84.9 fL (80.0-100.0); MEAN PLATELET VOLUME 9.1 fL (7.4-10.4); MONOCYTES 6.5 % (2-11); NEUTROPHILS 58.8 % (40-80); PLATELET COUNT 222 10x3/uL (130-400); RBC 4.44 10x6/uL (4.00-5.40); RDW 13.9 % (11.5-14.5)
[2020-03-05 10:50] LABS: WBC 9.7 10x3/uL (4.8-10.8)
[2020-03-05 10:53] LABS: ANION GAP 9.6 mmol/L (8-16); APTT 26.7 SECONDS (22.8-39.4); INR 0.97 (0.85-1.17); POTASSIUM - SERUM 3.6 mmol/L (3.5-5.1); PROTIME 12.8 SECONDS (11.6-15.0)
[2020-03-05] MEDS ORDERED: HYDROCODON-ACE1 EA10 PO (11:38)
[2020-03-05 11:39] VITALS: Ht 157.5 cm; Wt 89.8 kg
--- NOTE | 2020-03-05 16:55 | NUR ---
1650 IV REMOVED AND INSTRUCTIONS GIVEN
--- NOTE | 2020-03-05 17:34 | NUR ---
1734 WAITING AT ER FOR PTS EDIEER MICHELLE
== END 2020-03-05 17:35 | disposition home or self-care (01) ==
LOC: D.SP 10:19 → D.RAD 13:00 → D.SP 13:00
PROVIDERS: ATTEND General Practice
DX: I82.B11 Acute embolism and thrombosis of right subclavian vein (principal)

== ENCOUNTER 2020-08-20 21:10 | Observation (INO) | payer MEDICARE, MEDICAID ==
[~2020-08-20] VITALS: Ht 157.5 cm; Wt 85.7 kg
[~2020-08-20 21:10] MED LIST changes: +BYSTOLIC5 MG PO; +LEVOTHYROXINE75 MCG PO; +NORVASC10 MG PO
--- NOTE | 2020-08-20 21:29 | NUR ---
[facility] NUMBER LEFT WITH WET WASH ASSEMBLER [phone]
[2020-08-20] MEDS ORDERED: HUMULIN R SUBD (21:35)
[2020-08-20 21:52] LABS: BASOPHILS 0.2 % (0-2); EOSINOPHILS 1.5 % (0-7); HEMATOCRIT 35.4 % (36.0-48.0); HEMOGLOBIN 11.8 g/dL (12-16); IMMATURE GRANULOCYTES 0.6 % (0-5); LYMPHOCYTE ABS# 3.43 10x3/uL (1.18-3.74); LYMPHOCYTES 24.1 % (15-50); MCH 28.6 pg (26.0-34.0); MCHC 33.3 g/dL (31.0-37.0); MCV 85.7 fL (80.0-100.0); MEAN PLATELET VOLUME 8.9 fL (7.4-10.4); MONOCYTES 6.5 % (2-11); NEUTROPHIL ABS# 9.58 10x3/uL (1.56-6.13); NEUTROPHILS 67.1 % (40-80); PLATELET COUNT 236 10x3/uL (130-400); RBC 4.13 10x6/uL (4.00-5.40); RDW 13.8 % (11.5-14.5); WBC 14.3 10x3/uL (4.8-10.8)
[2020-08-20 21:53] LABS: BILIRUBIN NEGATIVE (NEGATIVE); KETONE NEGATIVE (NEGATIVE); NITRITE NEGATIVE (NEGATIVE); UROBILINOGEN NORMAL mg/dL (< 2)
[2020-08-20 21:59] LABS: APTT 23.3 SECONDS (22.8-39.4); INR 1.14 (0.85-1.17); PROTIME 13.6 SECONDS (11.6-15.0)
[2020-08-20 22:00] LABS: CALC OSMOLALITY 278 mosm/kg (275-300); CALCIUM 9.3 mg/dL (8.5-10.1); CARBON DIOXIDE 24.7 mmol/L (21.0-32.0); CHLORIDE - SERUM 101 mmol/L (98-107); CREATININE - SERUM 1.2 mg/dL (0.6-1.3); GLUCOSE 212 mg/dL (74-106); POTASSIUM - SERUM 3.8 mmol/L (3.5-5.1); SODIUM 136 mmol/L (136-145); UREA NITROGEN 16 mg/dL (7-18); eGFR NON AFRICAN AMERICAN 47 mL/min (90-120)
[2020-08-20 22:00] LABS: UDS - AMPHET NEGATIVE QUAL (NEGATIVE); UDS - BARB NEGATIVE QUAL (NEGATIVE); UDS - BENZO NEGATIVE QUAL (NEGATIVE); UDS - COCAINE NEGATIVE QUAL (NEGATIVE); UDS - OPIATE NEGATIVE QUAL (NEGATIVE); UDS - PCP NEGATIVE QUAL (NEGATIVE); UDS - THC NEGATIVE QUAL (NEGATIVE)
[2020-08-20 22:18] LABS: ALBUMIN 3.5 g/dL (3.4-5.0); ALKALINE PHOSPHATASE 96 U/L (30-120); ALT (SGPT) 23 U/L (10-68); BILIRUBIN - TOTAL 0.43 mg/dL (0.2-1.3); CKMB 1.7 U/L (0.0-3.6); CREATINE KINASE 126 UL (21-215); MAGNESIUM - SERUM 1.7 mg/dL (1.8-2.4); PRO BNP 147 pg/mL (0-125); PROTEIN - SERUM 7.9 g/dL (6.4-8.2); THYROID STIMULATING HORMONE 0.11 uIU/mL (0.36-3.74)
[2020-08-20 22:19] LABS: TROPONIN-I < 0.017 ng/mL (0.000-0.060)
[2020-08-20 22:31] VITALS: BP 145/80
[2020-08-20 23:38] VITALS: BP 174/89
--- NOTE | 2020-08-21 00:15 | NUR ---
REPORT CALLED BY NELSY OLIVAREZ FOR THIS PT FROM THE ER.
--- NOTE | 2020-08-21 00:30 | NUR ---
PT ARRIVED TO ROOM 2202 VIA WC FROM THE ER. SHE HAS FELT WEEK AND HAS FALLEN THE PAST FEW DAY. SHE WAS COMPLAINING ABOUT ODDS AND ENDS AND TOLD ME HOW MUCH FUN SHE WAS GOING TO HAVE COMPLETING THE HOSPITAL SURVEY THAT WOULD BBE SENT OUT. 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 SHE IS GETTING SITUATED IN HER ROOM. SHE ASKED ME WHEN SHE COULD BE FED. I EXPLAINED THAT THE CAFETERIA WASN'T OPEN BUT I WOULD TRY TO FIND HER SOME SNACKS. SHE DIDN'T UNDERSTAND THAT IT WAS AFTER MIDNIGHT. I DID FIND HER A SANDWICH TRAY AND SERVED IT TO HER. I TOOK HER A GLASS OF WATER WHICH SHE SPECIFICATELY ASKED FOR. SHE SAID WHERE IS MY COKE AND I TOLD HER SHE DIDN'T ASK FOR ONE.
--- NOTE | 2020-08-21 01:05 | NUR ---
PT AMBULATED TO THE NURSES DESK WITHOUT HER NON SLIP SOCKS ASKING FOR A TOOTHBRUSH. I ASKED HER TO GO GET IN BED AND I'D BRING ONE. I GOT HER OTHER HOME ESSENTIALS THAT SHE MAY NEED FOR HER STAY.
[2020-08-21 01:31] VITALS: BP 194/87
--- NOTE | 2020-08-21 02:00 | NUR ---
PT IS NOW TELLING ME TO GET HER AMBIEN 10 MG. I TOLD HER I WOULD LOOK TO SEE IF IT WAS ORDERED. SHE SAID THAT IT SOULD BE... I LOOKED AT HER ORDERS AND THIS DRUG IS NOT ORDERED. I WENT TO HER ROOM TO LET HER KNOW THIS AND SHE TOLD ME TO GO GET IT NOW...FOR ME TO WRITE AN ORDER FOR HER. I ALSO TOLD HER THAT BY POLICY WE DO NOT GIVE SLEEPING PILLS AFTER 2AM. SHE ONCE AGAIN TOLD ME HOW MUCH FUN SHE WOULD HAVE FILLING OUT THAT SURVEY.
[2020-08-21] MEDS ORDERED: GABAPENTIN100 MG PO (02:16)
[2020-08-21] MEDS ORDERED: BAYER CHEWABLE81 MG PO (02:18)
[2020-08-21] MEDS ORDERED: CYCLOBENZAPRINE10 MG PO (02:19)
[2020-08-21] MEDS ORDERED: BENADRYL25 MG PO (02:20)
[2020-08-21] MEDS ORDERED: CITRACAL + D E1 EACH PO (02:21)
[2020-08-21] MEDS ORDERED: RELAFEN500 MG PO (02:22)
--- NOTE | 2020-08-21 02:30 | NUR ---
PT CALLED ME INTO HER ROOM DEMANDING THAT HER IV SL BE REMOVED B/C IT WASN'T BEING USED. I TOLD HER THAT I DIDN'T HAVE AND ORDER TO TAKE IT OUT. THIS REALLY MADE HER MAD. I DISCUSSED THIS WITH MY CHARGE NURSE WHO TOLD ME TO TAKE IT OUT SINCE SHE HAD A RIGHT TO REFUSE. IV WAS REMOVED.
--- NOTE | 2020-08-21 03:55 | NUR ---
PT CALLED ME INTO HER ROOM WANTING TOWELS WASHCLOTHES. THERE WERE ALREADY SOME IN HER ROOM. SHE INFORMED ME THAT SHE WAS GOING TO TAKE A SHOWER AND SHE JUST COULD NOT STAY IN THAT HARD BED. I ASKED HER IF SHE COULD PLEASE WAIT A WHILE BEFORE SHE DID THIS SINCE SHE WAS ADMITTED FOR FALLS. SHE TOLD ME THAT SHE COULD TAKE A SHOWER BY HERSELF AND THAT SHE'D NEVER FALLEN IN THE SHOWER. THIS PT DOES EXACTLY WHAT SHE WANTS TO DO NO MATTER WHAT IS ASKED OF HER.
[2020-08-21 04:00] VITALS: BP 148/65
--- NOTE | 2020-08-21 04:15 | NUR ---
INCENTIVE SPIROMETER TAKEN TO PT. SHE STATES SHE KNOWS HOW TO USE THIS. I LET HER KNOW THAT SHE NEEDED TO USE THIS EVERY TWO HOURS WHILE AWAKE. NEURO CHECKS WERE DONE. PT DID NOT THIS THIS WAS NECESSARY. PT TOLD ME THAT SHE CALLED THE POLICE TODAY ABOUT PEOPLE BEING IN HER HOUSE PLAYING SOME KIND OF GAME. THE BOTTOM LINE IS THAT THEY TOOK ALL HER MONEY. THE POLICE AND EMS BOTH STATED THAT THIS WAS NOT TRUE. PT STATES THAT SHE SOMETIMES HAS PERIODS OF CONFUSION.
--- NOTE | 2020-08-21 04:30 | NUR ---
CALLED TO GET PT SET UP FOR TELE. I GOT A CALL TELLING ME THAT THEY WERE UNABLE TO PUT THIS PT ON AT THIS TIME.
--- NOTE | 2020-08-21 04:41 | NUR ---
PT JUST CAME TO THE NURSES STATION WANTING TO KNOW THE NUMBER OF HER EMERGENCY CONTACT. THIS WAS GIVEN TO HER.
[2020-08-21 05:49] LABS: BASOPHILS 0.2 % (0-2); EOSINOPHILS 1.6 % (0-7); HEMATOCRIT 34.6 % (36.0-48.0); HEMOGLOBIN 11.3 g/dL (12-16); IMMATURE GRANULOCYTES 0.4 % (0-5); LYMPHOCYTE ABS# 3.51 10x3/uL (1.18-3.74); LYMPHOCYTES 26.8 % (15-50); MCH 28.1 pg (26.0-34.0); MCHC 32.7 g/dL (31.0-37.0); MCV 86.1 fL (80.0-100.0); MEAN PLATELET VOLUME 8.9 fL (7.4-10.4); MONOCYTES 5.3 % (2-11); NEUTROPHILS 65.7 % (40-80); PLATELET COUNT 231 10x3/uL (130-400); RBC 4.02 10x6/uL (4.00-5.40); RDW 13.9 % (11.5-14.5); WBC 13.1 10x3/uL (4.8-10.8)
[2020-08-21 06:26] LABS: ALBUMIN 3.4 g/dL (3.4-5.0); ALKALINE PHOSPHATASE 93 U/L (30-120); ALT (SGPT) 24 U/L (10-68); BILIRUBIN - TOTAL 0.35 mg/dL (0.2-1.3); CALC OSMOLALITY 287 mosm/kg (275-300); CALCIUM 9.5 mg/dL (8.5-10.1); CARBON DIOXIDE 24.9 mmol/L (21.0-32.0); CHLORIDE - SERUM 102 mmol/L (98-107); CREATININE - SERUM 1.4 mg/dL (0.6-1.3); MAGNESIUM - SERUM 1.8 mg/dL (1.8-2.4); POTASSIUM - SERUM 3.6 mmol/L (3.5-5.1); PROTEIN - SERUM 7.4 g/dL (6.4-8.2); SODIUM 138 mmol/L (136-145); TROPONIN-I < 0.017 ng/mL (0.000-0.060); UREA NITROGEN 19 mg/dL (7-18); eGFR NON AFRICAN AMERICAN 40 mL/min (90-120)
--- NOTE | 2020-08-21 06:28 | NUR ---
PT WAS JUST GIVEN TYLENOL 650 MG FOR BACK PAIN RATED A 5
[2020-08-21 06:29] LABS: GLUCOSE 277 mg/dL (74-106)
[2020-08-21 08:07] VITALS: Ht 157.5 cm; Wt 85.7 kg
[2020-08-21 08:45] VITALS: BP 157/91
--- NOTE | 2020-08-21 08:45 | NUR ---
ASSESSMENT PER FLOW SHEET. PATIENT IS WITHOUT DISTRESS. REFUSES BED ALARM.REFUSES IV. 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 WANTS ANXIETY MEDS.REFUSES GOWN. MONITOR
[2020-08-21 12:18] VITALS: BP 137/76
--- NOTE | 2020-08-21 14:15 | NUR ---
CALL TO [facility] PER DR CORREIA REQUEST,NO ANSWER X2 CALLS.
--- NOTE | 2020-08-21 14:20 | NUR ---
SPOKE WITH EZEKIEL ON [facility]. ADULT MANAGER TO COME SEE PATIENT.
--- NOTE | 2020-08-21 15:33 | NUR ---
PATIENT REFUSES ZOLOFT ORDERED.
--- NOTE | 2020-08-21 15:34 | NUR ---
SPOKE WITH EZEKIEL IN [facility]. JOS [facility]OST[facility] HAS LEFT FOR DAY. SHE WILL BE BACK IN AM.
--- NOTE | 2020-08-21 15:59 | MORECARE ---
CASE MANAGEMENT DISCHARGE SUMMARY PATIENT: RABIA MORENO UNIT: [id number] ADM DATE: 08/20/20 AGE: 69 : 52 SEX: F ROOM/BED: D.2202 AUTHOR: MARIA C ENRIQUEZ PHYSICIAN: REFERRING PHYSICIAN: CANDIDO BOWERS MD DATE OF SERVICE: 08/21/20 Discharge Plan Patient Name: RABIA MORENO [facility] [facility] 1950 Planned Disposition: Anticipated Discharge Date: Discharge Date: Expected LOS: Initial Reviewer: [email or web address] Initial Review Date: 08/21/2020 Generated: 08/21/20 4:58 pm Comments DCP- Discharge Planning Updated by [email or web address]: Muna Quintero on 08/21/20 2:[address] LI SERVED AND EXPLAINED Coverage Notice Reviewer: [id number] - Muna Quintero Notice Issued Date-Time: 08/21/2020 15:40 Notice Type: Medicare Outpatient Observation Notice Notice Delivered To: Patient Relationship to Patient: Suture Gauger Name: Delivery Method: HAND - Hand Delivered Etelvina Days: Prior Verbal Notification: Recipient Understood Notice: Yes Recipient Signature: Yes Med Rec Note Co-signed by Attending: Coverage Notice Comment: LI SERVED AND EXPLAINED Patient Name: RABIA MORENO Page [phone] at 1559 All edits/amendments must be made on the electronic document DICTATION DATE: 08/21/201557 MEDICAL TERRITORY MANAGER: RITA 08/21/20 1558 RPT#: [id number] DC DATE: STATUS: ADM IN [facility] [address] [place] [address] END OF REPORT
[2020-08-21 16:07] VITALS: BP 166/68
--- NOTE | 2020-08-21 16:48 | NUR ---
UP AT BEDSIDE EATING DINNER. STATES BETTER AFTER NEUROTIN ORDERED.DENIES NEEDS. CONT PLAN OF CARE
--- NOTE | 2020-08-21 20:32 | NUR ---
REPORT RECEIVED, WILL CONT POC. PT A&O, LAYING IN BED COMPLAINING OF LEG PAIN. EDUCATED PT ON THE USE OF SCDS AND THE BENEFITS. PT STATED SHE WAS WILLING TO TRY THE SCDS WITH TYLENOL FOR PAIN MANAGEMENT. BED LOCKED & LOWERED, CL IN REACH. ASSESSMENT COMPLETED AT THIS TIME. WILL CONT TO MONITOR.
--- NOTE | 2020-08-22 01:31 | NUR ---
PATIENT REPORTS SOME IMPROVEMENT IN LEG PAIN WITH SCDS AND TYLENOL. REQUESTED MEDICATION FOR ANXIETY. MEDICATED PER AUG. WILL CONTINUE TO MONITOR.
[2020-08-22 05:18] LABS: BASOPHILS 0.3 % (0-2); EOSINOPHILS 3.7 % (0-7); HEMOGLOBIN 10.8 g/dL (12-16); IMMATURE GRANULOCYTES 0.6 % (0-5); LYMPHOCYTE ABS# 2.79 10x3/uL (1.18-3.74); LYMPHOCYTES 29.4 % (15-50); MCH 27.8 pg (26.0-34.0); MCHC 31.8 g/dL (31.0-37.0); MCV 87.4 fL (80.0-100.0); MEAN PLATELET VOLUME 9.4 fL (7.4-10.4); MONOCYTES 7.1 % (2-11); NEUTROPHIL ABS# 5.59 10x3/uL (1.56-6.13); NEUTROPHILS 58.9 % (40-80); PLATELET COUNT 198 10x3/uL (130-400); RBC 3.89 10x6/uL (4.00-5.40); RDW 13.9 % (11.5-14.5)
[2020-08-22 05:23] LABS: WBC 9.5 10x3/uL (4.8-10.8)
[2020-08-22 05:39] LABS: ALBUMIN 3.1 g/dL (3.4-5.0); ANION GAP 13.2 mmol/L (8-16); BILIRUBIN - TOTAL 0.15 mg/dL (0.2-1.3); CALCIUM 8.9 mg/dL (8.5-10.1); CARBON DIOXIDE 25.9 mmol/L (21.0-32.0); CREATININE - SERUM 1.2 mg/dL (0.6-1.3); MAGNESIUM - SERUM 2.1 mg/dL (1.8-2.4); POTASSIUM - SERUM 4.1 mmol/L (3.5-5.1); PROTEIN - SERUM 6.9 g/dL (6.4-8.2)
--- NOTE | 2020-08-22 07:46 | NUR ---
RESTING IN BED, NO DISTRESS NOTED, CONT TO MONITOR SUGARS, TELE IN PLACE, NO IV
[2020-08-22 07:47] VITALS: BP 125/63
--- NOTE | 2020-08-22 08:32 | NUR ---
JOSEPH NOTED TO Manoj MACK, PT STATES THAT SHE DOESNT REMEMBER FALLING, CONT TO MONITOR
[2020-08-22 11:53] VITALS: BP 131/58
--- NOTE | 2020-08-22 13:12 | NUR ---
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
--- NOTE | 2020-08-22 16:53 | NUR ---
SUGAR 193 COVER WITH SLIDING SCALE
[2020-08-22 17:20] VITALS: BP 140/69
--- NOTE | 2020-08-22 19:08 | NUR ---
RECEIVED REPORT, ASSUMED CARE, BREATHING EVEN UNLABORED, CALL LIGHT IN REACH, BED LOWEST POSITION, DENIES NEEDS, NO S/S OF DISTRESS NOTED, ENCOURAGED PT TO NOTIFY STAFF OF ANY NEEDS, LINENS CHANGED, PT IN SHOWER
[2020-08-22 20:00] VITALS: BP 142/66
[2020-08-23] VITALS: BP 137/69
[2020-08-23] MEDS ORDERED: AMBIEN10 MG PO (00:43)
[2020-08-23 04:00] VITALS: BP 149/73
[2020-08-23 05:31] LABS: BASOPHILS 0.3 % (0-2); EOSINOPHILS 3.2 % (0-7); HEMATOCRIT 33.6 % (36.0-48.0); HEMOGLOBIN 10.9 g/dL (12-16); IMMATURE GRANULOCYTES 0.4 % (0-5); LYMPHOCYTE ABS# 3.23 10x3/uL (1.18-3.74); LYMPHOCYTES 28.7 % (15-50); MCH 27.9 pg (26.0-34.0); MCHC 32.4 g/dL (31.0-37.0); MCV 85.9 fL (80.0-100.0); MEAN PLATELET VOLUME 9.2 fL (7.4-10.4); MONOCYTES 4.9 % (2-11); NEUTROPHIL ABS# 7.05 10x3/uL (1.56-6.13); NEUTROPHILS 62.5 % (40-80); PLATELET COUNT 227 10x3/uL (130-400); RBC 3.91 10x6/uL (4.00-5.40); RDW 13.8 % (11.5-14.5); WBC 11.3 10x3/uL (4.8-10.8)
[2020-08-23 05:48] LABS: MAGNESIUM - SERUM 1.9 mg/dL (1.8-2.4)
[2020-08-23 05:49] LABS: ALBUMIN 3.2 g/dL (3.4-5.0); ANION GAP 13.1 mmol/L (8-16); BILIRUBIN - TOTAL 0.21 mg/dL (0.2-1.3); CALCIUM 8.5 mg/dL (8.5-10.1); CARBON DIOXIDE 25.9 mmol/L (21.0-32.0); PROTEIN - SERUM 6.4 g/dL (6.4-8.2)
--- NOTE | 2020-08-23 07:50 | NUR ---
RESTING IN BED, EYES CLOSED, RESP UNLABORED CONT TO MONITOR
[2020-08-23 09:30] VITALS: BP 121/47
[2020-08-23 13:05] VITALS: BP 134/80
--- NOTE | 2020-08-23 13:51 | NUR ---
DC TELE, NO IV INPLACE, DISCUSSED DC PAPERS, VOICED NO CONCERNS
--- NOTE | 2020-08-24 08:29 | MORECARE ---
CASE MANAGEMENT DISCHARGE SUMMARY PATIENT: RABIA MORENO UNIT: [id number] ADM DATE: 08/20/20 AGE: 69 : 52 SEX: F ROOM/BED: D.2202 AUTHOR: MARIA C ENRIQUEZ PHYSICIAN: REFERRING PHYSICIAN: CANDIDO BOWERS MD DATE OF SERVICE: 08/24/20 Discharge Plan Patient Name: RABIA MORENO [facility] [facility] 1950 Planned Disposition: Anticipated Discharge Date: Discharge Date: 08/23/2020 Expected LOS: Initial Reviewer: [email or web address] Initial Review Date: 08/21/2020 Generated: 08/24/20 9:28 am DCP- Discharge Planning Updated by [email or web address]: Muna Quintero on 08/21/20 1:[address] GUILLERMO SERVED AND EXPLAINED Coverage Notice Reviewer: [email or web address] - Muna Quintero Notice Issued Date-Time: 08/21/2020 15:40 Notice Type: Medicare Outpatient Observation Notice Notice Delivered To: Patient 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
== END 2020-08-23 14:00 | disposition home or self-care (01) ==
LOC: D.ER 21:10 → D.MS 23:48 → OBSVTIME 23:48 → D.MS 23:48
PROVIDERS: Family Medicine; ADMIT Family Medicine; ATTEND Family Medicine
DX: R53.1 Weakness (principal); G93.41 Metabolic encephalopathy; D64.9 Anemia, unspecified; E03.9 Hypothyroidism, unspecified; E11.65 Type 2 diabetes mellitus with hyperglycemia; D72.829 Elevated white blood cell count, unspecified; E83.42 Hypomagnesemia; I10 Essential (primary) hypertension; F41.9 Anxiety disorder, unspecified; N17.9 Acute kidney failure, unspecified; F23 Brief psychotic disorder; G25.81 Restless legs syndrome

== ENCOUNTER → 2020-08-28 08:52 | Outpatient (CLI) | payer MEDICARE, MEDICAID ==
[2020-08-21 08:07] VITALS: BMI 34.6
[~2020-08-28 08:52] MED LIST changes: +BENADRYL25 MG PO; +CITRACAL + D E1 EACH PO; +GABAPENTIN100 MG PO; +HUMULIN R SUBD; +RELAFEN500 MG PO
== END | disposition home or self-care (01) ==
LOC: D.US 08:52
PROVIDERS: ATTEND Family Medicine
DX: E05.90 Thyrotoxicosis, unspecified without thyrotoxic crisis or storm (principal)

== ENCOUNTER 2020-11-23 21:21 | Emergency (ER) | payer MEDICARE, MEDICAID ==
[~2020-11-23] VITALS: Ht 157.5 cm; Wt 92.7 kg
[2020-11-23 21:31] VITALS: BP 153/66; Ht 157.5 cm; Wt 92.7 kg
[2020-11-24 00:15] LABS: BASOPHILS 0.7 % (0-2); EOSINOPHILS 3.2 % (0-7); HEMOGLOBIN 11.8 g/dL (12-16); LYMPHOCYTES 29.9 % (15-50); MCH 27.8 pg (26.0-34.0); MCHC 32.7 g/dL (31.0-37.0); MEAN PLATELET VOLUME 7.4 fL (7.4-10.4); MONOCYTES 7.8 % (2-11); NEUTROPHILS 58.4 % (40-80); PLATELET COUNT 215 10x3/uL (130-400); RBC 4.23 10x6/uL (4.00-5.40); RDW 15.4 % (11.5-14.5)
[2020-11-24 00:26] LABS: ANION GAP 12.4 mmol/L (8-16); CALCIUM 9.4 mg/dL (8.5-10.1); CARBON DIOXIDE 25.7 mmol/L (21.0-32.0); CREATININE - SERUM 1.2 mg/dL (0.6-1.3); POTASSIUM - SERUM 4.1 mmol/L (3.5-5.1)
[2020-11-24 00:34] LABS: ALBUMIN 3.7 g/dL (3.4-5.0); BILIRUBIN - TOTAL 0.26 mg/dL (0.2-1.3); PROTEIN - SERUM 7.6 g/dL (6.4-8.2)
[2020-11-24] MEDS ORDERED: NAPROSYN500 MG PO (03:01)
== END 2020-11-24 03:09 | disposition home or self-care (01) ==
LOC: D.ER 21:21
PROVIDERS: Family Medicine
DX: S46.911A Strain of unspecified muscle, fascia and tendon at shoulder and upper arm level, right arm, initial encounter (principal); X50.0XXA Overexertion from strenuous movement or load, initial encounter; Y93.9 Activity, unspecified; Y92.9 Unspecified place or not applicable; E11.9 Type 2 diabetes mellitus without complications; I10 Essential (primary) hypertension; Z79.4 Long term (current) use of insulin